=== PATIENT | male | born 1955 | race Caucasian/White ===

== ENCOUNTER 2018-08-29 05:03 | Inpatient (IN) ==
--- NOTE | 2018-08-29 05:16 | Emergency Department Note ---
Disposition Clinical Impression: Increased ammonia level Disposition: Admitted As Inpatient Condition: Fair Referrals: Trevor Horowitz MD [Primary Care Provider] - Forms: ED Satisfaction Letter SOB HPI - General Chief Complaint: ED Shortness of Breath/Dyspnea Stated Complaint: SOB/N/V Time Seen by Provider: 08/29/18 05:12 Source: patient, EMS Mode of arrival: private vehicle Limitations: no limitations Nursing Notes Reviewed: Yes Vital Signs Reviewed: Yes - History of Present Illness 63-year-old male with a past medical history of CHF, increased ammonia, that was recently admitted to this facility for shortness of breath. Patient states that he was started on lactulose and is now complaining of some abdominal pain, diarrhea. Patient states that he got up in the middle of night to go to the restroom and he felt very dizzy and weak, and was afraid that he might fall. He states that his has difficulty helping him and she was afraid that she might fall so he called the squad to be brought to the emergency department. Patient states that he uses CPAP at night with 2 L of oxygen, but is not normally on any oxygen. When asked about nausea and vomiting he states that he was dry heaving at home but denies any specific vomiting. He also relates that his has more information about the subject than he does. - Related Data Home Medications Medication Instructions Recorded Confirmed Amiodarone [Cordarone] 200 mg PO DAILY 08/11/18 08/29/18 Apixaban [Eliquis] 2.5 mg PO BID 08/11/18 08/29/18 Ascorbate Calcium [Vitamin C] 500 mg PO DAILY 08/11/18 08/29/18 Cholecalciferol (Vitamin D3) 3,000 unit PO DAILY 08/11/18 08/29/18 [Children's Vitamin D3] Cyanocobalamin (Vitamin B-12) 1,000 mcg PO DAILY 08/11/18 08/29/18 [Vitamin B12] Ferrous Sulfate [Iron] 325 mg PO BIDWM 08/11/18 08/29/18 Gabapentin [Neurontin] 300 mg PO TID 08/11/18 08/29/18 Glimepiride [Amaryl] 1 mg PO DAILY PRN 08/11/18 08/29/18 Isosorbide MONOnitrate (24 HR) 30 mg PO QPM 08/11/18 08/29/18 [Imdur] L.acidoph,Paracasei, B.lactis 1 cap PO BID 08/11/18 08/29/18 [Probiotic] Levothyroxine [Synthroid] 112 mcg PO 0630 08/11/18 08/29/18 Metoprolol Succinate [Toprol Xl] 25 mg PO DAILY 08/11/18 08/29/18 Mexiletine [Mexitil] 150 mg PO Q8HR 08/11/18 08/29/18 Multivitamin [Daily Multiple 1 each PO DAILY 08/11/18 08/29/18 Vitamin] Atorvastatin Calcium [Lipitor] 80 mg PO HS 08/18/18 08/29/18 Cetirizine HCl [24Hour Allergy] 10 mg PO DAILY 08/18/18 08/29/18 Lactulose 10 gm PO TID 08/29/18 08/29/18 Previous Rx's Medication Instructions Recorded Omeprazole [PriLOSEC] 40 mg PO DAILY #30 cap 08/14/18 Allopurinol [Zyloprim] 300 mg PO DAILY #0 08/23/18 Torsemide [Demadex] 80 mg PO BID #240 tablet 08/23/18 Allergies Allergy/AdvReac Type Severity Reaction Status Date / Time No Known Allergies Allergy Verified 08/18/18 13:41 Review of Systems: All systems ED: reviewed and negative except as stated. Constitutional: Denies: fever, chills ENT ED: Denies: ear pain, throat pain Cardiovascular: Denies: chest pain, palpitations Respiratory: Denies: cough, Reports: dyspnea Gastrointestinal: Denies: vomiting, constipation Reports: abdominal pain, nausea, diarrhea Genitourinary: Denies: urgency, dysuria, frequency Musculoskeletal: Denies: back pain, neck pain Integumentary: Denies: rash, abrasion Neurological: Denies: headache, numbness, paresthesias Reports: weakness, lightheadedness Psychiatric: Denies: anxiety, depression Endocrine: Denies: fatigue, heat or cold intolerance Hematological/Lymphatic: Denies: easy bleeding, easy bruising Allergic/Immunologic: Denies: facial swelling, urticaria Past Medical History - Past Medical History Attestation: Yes The following information was validated with the patient. Medical history: Reports: CHF, diabetes, hyperlipidemia, hypertension, thyroid disease Psychiatric history: Reports: no psych history - Social History Smoking Status: Former smoker Smokeless Tobacco Status: No Alcohol use: Reports: none Drug use: Reports: none Physical Exam General: A&O x 3. No acute distress. Well developed, well nourished. Obese m cindy. Head: atraumatic, normocephalic. ENT: No conjunctival injection, no scleral icterus. PERRLA. EOMI. Oropharynx non- erythematous. mucous membranes moist. Neuro: No focal deficits, no speech deficit, no facial droop, mentating well. BUE/BLE Str 5/5. Pulm: Rales in left lower lobe. Cardio: RRR no m/r/g. Chest not tender to palpation. Abd: Soft, non-distended. Normoactive bowel sounds. Non-tender to palpation. No guarding. Non rigid. Extremities: Radial pulses 2+ angela, Right leg more swollen than right, 2+ pitting edema on the right, 1+ pitting edema on the left. Skin: angela upper extremities diffusely covered in excoriations with scabs. Psych: Appropriate mood and affect. Answers questions appropriately. Cooperative with exam. - General Limitations: no limitations General appearance: alert, in no apparent distress Course Course Narrative: Ddx includes but is not limited to: Workup: CBC, BMP, troponin, lactic acid, blood cultures, ammonia, LFTs, CXR, EKG Vital Signs Temperature 98.4 F 08/29/18 05:09 Pulse Rate 71 08/29/18 05:09 Respiratory Rate 16 08/29/18 05:09 Blood Pressure 129/48 08/29/18 05:09 O2 Sat by Pulse Oximetry 96 08/29/18 05:09 Temperature 98.4 F 08/29/18 05:09 Pulse Rate 70 08/29/18 06:31 Respiratory Rate 16 08/29/18 06:31 Blood Pressure 132/55 08/29/18 06:31 O2 Sat by Pulse Oximetry 94 08/29/18 06:31 Oxygen Delivery Oxygen Delivery Room Air Shortness of Breath/Dyspnea - MDM Narrative Medical decision making narrative: Pts ammonia level was elevated at 181 after having his lactulose increased to 20mg TID since Thursday after his appt with Dr. Horowitz. Pt will be given a dose here in the department and admitted to the hospitalist. CXR showed stable right basilar atelectasis but also stated that this could be superinfection. Pt was normothermic, and he did not have an elevated WBC count, do not believe this is a superinfection. Patient was given an opportunity to ask questions at bedside and all of their concerns were addressed. Patient verbalized understanding and agreement with plan of care. Pt remained stable while in the department. Pt was signed out to [facility] doctors Lois and Danya, please see their notes for full disposition. - Medical Records Medical records reviewed: Yes I reviewed the patient's medical records. - Lab Data Lab results reviewed: Yes I reviewed the patient's lab results. Result diagrams: 08/29/18 05:53 08/29/18 05:53 Lab Results 08/29/18 08/29/18 08/29/18 Range/Units 05:53 05:53 05:53 WBC 5.6 (4.3-11.1) K/mcL RBC 3.25 L (4.19-5.50) M/mcL Hgb 9.4 L (12.9-16.9) g/dL Hct 29.7 L (37.5-50.1) % MCV 91.4 (83.0-100.0) fL MCH 28.9 (28.0-33.3) pg MCHC 31.6 (31.6-35.5) g/dL RDW 19.4 H (11.5-14.5) % Plt Count 145 (140-400) K/mcL MPV 11.2 (9.4-12.4) fL Immature Gran % 0.2 (0-4) % Seg Neutrophils % 74.4 % Lymphocytes % 14.0 % Monocytes % 9.8 % Eosinophils % 1.1 % Basophils % 0.5 % Neutrophils # 4.2 (1.6-8.9) K/mcL Lymphocytes # 0.8 (0.6-4.6) K/mcL Monocytes # 0.6 (0.0-1.3) K/mcL Eosinophils # 0.1 (0.0-0.6) K/mcL Basophils # 0.0 (0.0-0.2) K/mcL Sodium 135 L (136-145) mEq/L Potassium 3.2 L (3.5-5.1) mEq/L Chloride 92 L (98-107) mEq/L Carbon Dioxide 32 H (23-29) mEq/L BUN 82 H (8-23) mg/dL Creatinine 2.40 H (0.70-1.30) mg/dL Est GFR ( Amer) 33 L (> 60) Est GFR (Non-Af Amer) 28 L (> 60) BUN/Creatinine Ratio 34 H (6-26) Glucose 200 H (70-105) mg/dL Calculated Osmolality 310 H (280-300) Lactic Acid 1.4 (0.5-2.2) mmol/L Calcium 9.8 (8.6-10.3) mg/dL Total Bilirubin 1.7 H (0.3-1.0) mg/dL Direct Bilirubin 0.6 H (0.0-0.2) mg/dL Indirect Bilirubin 1.1 (0.0-1.2) mg/dL AST 54 H (13-39) Units/L ALT 39 (7-52) Units/L Alkaline Phosphatase 145 H (34-104) Units/L Ammonia (16-53) mcmol/L Troponin I 0.03 (< 0.04) ng/mL B-Natriuretic Peptide (Less than 100) pg/mL Serum Total Protein 6.6 (6.4-8.9) g/dL Albumin 3.5 (3.5-5.7) g/dL Globulin 3.1 (2.4-3.5) g/dL Albumin/Globulin Ratio 1.1 (1.1-2.2) 08/29/18 08/29/18 Range/Units 05:53 05:53 WBC (4.3-11.1) K/mcL RBC (4.19-5.50) M/mcL Hgb (12.9-16.9) g/dL Hct (37.5-50.1) % MCV (83.0-100.0) fL MCH (28.0-33.3) pg MCHC (31.6-35.5) g/dL RDW (11.5-14.5) % Plt Count (140-400) K/mcL MPV (9.4-12.4) fL Immature Gran % (0-4) % Seg Neutrophils % % Lymphocytes % % Monocytes % % Eosinophils % % Basophils % % Neutrophils # (1.6-8.9) K/mcL Lymphocytes # (0.6-4.6) K/mcL Monocytes # (0.0-1.3) K/mcL Eosinophils # (0.0-0.6) K/mcL Basophils # (0.0-0.2) K/mcL Sodium (136-145) mEq/L Potassium (3.5-5.1) mEq/L Chloride (98-107) mEq/L Carbon Dioxide (23-29) mEq/L BUN (8-23) mg/dL Creatinine (0.70-1.30) mg/dL Est GFR ( Amer) (> 60) Est GFR (Non-Af Amer) (> 60) BUN/Creatinine Ratio (6-26) Glucose (70-105) mg/dL Calculated Osmolality (280-300) Lactic Acid (0.5-2.2) mmol/L Calcium (8.6-10.3) mg/dL Total Bilirubin (0.3-1.0) mg/dL Direct Bilirubin (0.0-0.2) mg/dL Indirect Bilirubin (0.0-1.2) mg/dL AST (13-39) Units/L ALT (7-52) Units/L Alkaline Phosphatase (34-104) Units/L Ammonia 181 H (16-53) mcmol/L Troponin I (< 0.04) ng/mL B-Natriuretic Peptide 452 H (Less than 100) pg/mL Serum Total Protein (6.4-8.9) g/dL Albumin (3.5-5.7) g/dL Globulin (2.4-3.5) g/dL Albumin/Globulin Ratio (1.1-2.2) - Radiology Data Radiology results reviewed: Yes I reviewed the patient's radiology results. Chest X-Ray 08/29/18 05:12 IMPRESSION: Heart failure, with pulmonary edema, right pleural effusion and presumed basilar atelectasis-altogether not substantially changed since 08/18/2018. Superimposed infection could be present in the appropriate context. D/ / Yan Trejo / Yan Trejo Interpreting Provider: Yan Trejo - EKG Data EKG attestation: Yes I reviewed and interpreted this EKG. EKG results narrative: HR 70, rhythm ventricular paced, axis right. AK 89, QRS 219 and prolonged, QTc 564 and prolonged. No clinically significant ST elevation by Sgarbossa's criteria.
[2018-08-29 06:06] LABS: Basophils % 0.5 %; Eosinophils # 0.1 K/mcL (0.0-0.6); Eosinophils % 1.1 %; Hematocrit 29.7 % (37.5-50.1); Hemoglobin 9.4 g/dL (12.9-16.9); Immature Granulocytes % 0.2 % (0-4); Lymphocytes # 0.8 K/mcL (0.6-4.6); Mean Corpuscular HGB Conc 31.6 g/dL (31.6-35.5); Mean Corpuscular Hemoglobin 28.9 pg (28.0-33.3); Mean Corpuscular Volume 91.4 fL (83.0-100.0); Mean Platelet Volume 11.2 fL (9.4-12.4); Monocytes # 0.6 K/mcL (0.0-1.3); Monocytes % 9.8 %; Neutrophils # 4.2 K/mcL (1.6-8.9); Platelet Count 145 K/mcL (140-400); Red Blood Count 3.25 M/mcL (4.19-5.50); Red Cell Distribution Width 19.4 % (11.5-14.5); Segmented Neutrophils % 74.4 %
[2018-08-29 06:29] LABS: Albumin 3.5 g/dL (3.5-5.7); Albumin/Globulin Ratio 1.1 (1.1-2.2); Bilirubin,Direct 0.6 mg/dL (0.0-0.2); Bilirubin,Indirect 1.1 mg/dL (0.0-1.2); Bilirubin,Total 1.7 mg/dL (0.3-1.0); Calcium 9.8 mg/dL (8.6-10.3); Globulin 3.1 g/dL (2.4-3.5); Potassium 3.2 mEq/L (3.5-5.1); Total Protein 6.6 g/dL (6.4-8.9); Troponin I 0.03 ng/mL (< 0.04)
[2018-08-29] MEDS ORDERED: Lactulose Oral Soln 20 GM/30 ML UDC PO ONE (06:40)
--- NOTE | 2018-08-29 06:58 | Emergency Department Note ---
Disposition Clinical Impression: Increased ammonia level Disposition: Admitted As Inpatient Condition: Fair Forms: ED Satisfaction Letter General Adult HPI - General Chief complaint: ED Shortness of Breath/Dyspnea Stated complaint: SOB/N/V Time Seen by Provider: 08/29/18 05:12 Source: patient, EMS Mode of arrival: private vehicle Limitations: no limitations Nursing Notes Reviewed: Yes Vital Signs Reviewed: Yes - History of Present Illness Pain Scale: 5 - Related Data Home Medications Medication Instructions Recorded Confirmed Amiodarone [Cordarone] 200 mg PO DAILY 08/11/18 08/29/18 Apixaban [Eliquis] 2.5 mg PO BID 08/11/18 08/29/18 Ascorbate Calcium [Vitamin C] 500 mg PO DAILY 08/11/18 08/29/18 Cholecalciferol (Vitamin D3) 3,000 unit PO DAILY 08/11/18 08/29/18 [Children's Vitamin D3] Cyanocobalamin (Vitamin B-12) 1,000 mcg PO DAILY 08/11/18 08/29/18 [Vitamin B12] Ferrous Sulfate [Iron] 325 mg PO BIDWM 08/11/18 08/29/18 Gabapentin [Neurontin] 300 mg PO TID 08/11/18 08/29/18 Glimepiride [Amaryl] 1 mg PO DAILY PRN 08/11/18 08/29/18 Isosorbide MONOnitrate (24 HR) 30 mg PO QPM 08/11/18 08/29/18 [Imdur] L.acidoph,Paracasei, B.lactis 1 cap PO BID 08/11/18 08/29/18 [Probiotic] Levothyroxine [Synthroid] 112 mcg PO 0630 08/11/18 08/29/18 Metoprolol Succinate [Toprol Xl] 25 mg PO DAILY 08/11/18 08/29/18 Mexiletine [Mexitil] 150 mg PO Q8HR 08/11/18 08/29/18 Multivitamin [Daily Multiple 1 each PO DAILY 08/11/18 08/29/18 Vitamin] Atorvastatin Calcium [Lipitor] 80 mg PO HS 08/18/18 08/29/18 Cetirizine HCl [24Hour Allergy] 10 mg PO DAILY 08/18/18 08/29/18 Lactulose 10 gm PO TID 08/29/18 08/29/18 Previous Rx's Medication Instructions Recorded Omeprazole [PriLOSEC] 40 mg PO DAILY #30 cap 08/14/18 Allopurinol [Zyloprim] 300 mg PO DAILY #0 08/23/18 Torsemide [Demadex] 80 mg PO BID #240 tablet 08/23/18 Allergies Allergy/AdvReac Type Severity Reaction Status Date / Time No Known Allergies Allergy Verified 08/18/18 13:41 Past Medical History - Past Medical History Medical history: Reports: CHF, diabetes, hyperlipidemia, hypertension, thyroid disease Psychiatric history: Reports: no psych history - Social History Smoking Status: Former smoker Smokeless Tobacco Status: No Alcohol use: Reports: none Drug use: Reports: none Physical Exam - General Limitations: no limitations General appearance: alert, in no apparent distress Course Vital Signs Temperature 98.4 F 08/29/18 05:09 Pulse Rate 71 08/29/18 05:09 Respiratory Rate 16 08/29/18 05:09 Blood Pressure 129/48 08/29/18 05:09 O2 Sat by Pulse Oximetry 96 08/29/18 05:09 Temperature 98.4 F 08/29/18 05:09 Pulse Rate 70 08/29/18 06:31 Respiratory Rate 16 08/29/18 06:31 Blood Pressure 132/55 08/29/18 06:31 O2 Sat by Pulse Oximetry 94 08/29/18 06:31 Oxygen Delivery Oxygen Delivery Room Air Medical Decision Making - Medical Records Medical records reviewed: Yes I reviewed the patient's medical records. - Lab Data Lab results reviewed: Yes I reviewed the patient's lab results. Result diagrams: 08/29/18 05:53 08/29/18 05:53 Lab Results 08/29/18 08/29/18 08/29/18 Range/Units 05:53 05:53 05:53 WBC 5.6 (4.3-11.1) K/mcL RBC 3.25 L (4.19-5.50) M/mcL Hgb 9.4 L (12.9-16.9) g/dL Hct 29.7 L (37.5-50.1) % MCV 91.4 (83.0-100.0) fL MCH 28.9 (28.0-33.3) pg MCHC 31.6 (31.6-35.5) g/dL RDW 19.4 H (11.5-14.5) % Plt Count 145 (140-400) K/mcL MPV 11.2 (9.4-12.4) fL Immature Gran % 0.2 (0-4) % Seg Neutrophils % 74.4 % Lymphocytes % 14.0 % Monocytes % 9.8 % Eosinophils % 1.1 % Basophils % 0.5 % Neutrophils # 4.2 (1.6-8.9) K/mcL Lymphocytes # 0.8 (0.6-4.6) K/mcL Monocytes # 0.6 (0.0-1.3) K/mcL Eosinophils # 0.1 (0.0-0.6) K/mcL Basophils # 0.0 (0.0-0.2) K/mcL Sodium 135 L (136-145) mEq/L Potassium 3.2 L (3.5-5.1) mEq/L Chloride 92 L (98-107) mEq/L Carbon Dioxide 32 H (23-29) mEq/L BUN 82 H (8-23) mg/dL Creatinine 2.40 H (0.70-1.30) mg/dL Est GFR ( Amer) 33 L (> 60) Est GFR (Non-Af Amer) 28 L (> 60) BUN/Creatinine Ratio 34 H (6-26) Glucose 200 H (70-105) mg/dL Calculated Osmolality 310 H (280-300) Lactic Acid 1.4 (0.5-2.2) mmol/L Calcium 9.8 (8.6-10.3) mg/dL Total Bilirubin 1.7 H (0.3-1.0) mg/dL Direct Bilirubin 0.6 H (0.0-0.2) mg/dL Indirect Bilirubin 1.1 (0.0-1.2) mg/dL AST 54 H (13-39) Units/L ALT 39 (7-52) Units/L Alkaline Phosphatase 145 H (34-104) Units/L Ammonia (16-53) mcmol/L Troponin I 0.03 (< 0.04) ng/mL B-Natriuretic Peptide (Less than 100) pg/mL Serum Total Protein 6.6 (6.4-8.9) g/dL Albumin 3.5 (3.5-5.7) g/dL Globulin 3.1 (2.4-3.5) g/dL Albumin/Globulin Ratio 1.1 (1.1-2.2) 08/29/18 08/29/18 Range/Units 05:53 05:53 WBC (4.3-11.1) K/mcL RBC (4.19-5.50) M/mcL Hgb (12.9-16.9) g/dL Hct (37.5-50.1) % MCV (83.0-100.0) fL MCH (28.0-33.3) pg MCHC (31.6-35.5) g/dL RDW (11.5-14.5) % Plt Count (140-400) K/mcL MPV (9.4-12.4) fL Immature Gran % (0-4) % Seg Neutrophils % % Lymphocytes % % Monocytes % % Eosinophils % % Basophils % % Neutrophils # (1.6-8.9) K/mcL Lymphocytes # (0.6-4.6) K/mcL Monocytes # (0.0-1.3) K/mcL Eosinophils # (0.0-0.6) K/mcL Basophils # (0.0-0.2) K/mcL Sodium (136-145) mEq/L Potassium (3.5-5.1) mEq/L Chloride (98-107) mEq/L Carbon Dioxide (23-29) mEq/L BUN (8-23) mg/dL Creatinine (0.70-1.30) mg/dL Est GFR ( Amer) (> 60) Est GFR (Non-Af Amer) (> 60) BUN/Creatinine Ratio (6-26) Glucose (70-105) mg/dL Calculated Osmolality (280-300) Lactic Acid (0.5-2.2) mmol/L Calcium (8.6-10.3) mg/dL Total Bilirubin (0.3-1.0) mg/dL Direct Bilirubin (0.0-0.2) mg/dL Indirect Bilirubin (0.0-1.2) mg/dL AST (13-39) Units/L ALT (7-52) Units/L Alkaline Phosphatase (34-104) Units/L Ammonia 181 H (16-53) mcmol/L Troponin I (< 0.04) ng/mL B-Natriuretic Peptide 452 H (Less than 100) pg/mL Serum Total Protein (6.4-8.9) g/dL Albumin (3.5-5.7) g/dL Globulin (2.4-3.5) g/dL Albumin/Globulin Ratio (1.1-2.2) - Radiology Data Radiology results reviewed: Yes I reviewed the patient's radiology results. Chest X-Ray 08/29/18 05:12 IMPRESSION: Heart failure, with pulmonary edema, right pleural effusion and presumed basilar atelectasis-altogether not substantially changed since 08/18/2018. Superimposed infection could be present in the appropriate context. D/ / Yan Trejo / Yan Trejo Interpreting Provider: Yan Trejo - EKG Data EKG #1 EKG attestation: Yes I reviewed and interpreted this EKG. EKG results narrative: EKG shows an electronic ventricular pacemaker with a totally paced rhythm at a rate of 70. Attestation Statement - Attestation Attestation: I, Thierno Trevino MD, personally evaluated this patient and discussed their management with the resident physician. I reviewed the resident's note and agree with the documented findings, medical decision making, and plan of care. 65-year-old male presents to the emergency department with a complaint that he awoke during the night to the bathroom and he was so weak and shaky cannot make it to the bathroom. He called EMS. He has been taking lactulose for elevated ammonia level but states he has not been having a bowel movement. Some shortness of breath which is chronic. No chest pain. On examination patient is a well-developed obese male in no acute distress. He is alert and oriented 3. No cyanosis or diaphoresis. Breath sounds are equal bilaterally but decreased in the bases. Heart regular rate and rhythm. Abdomen soft and nontender with present bowel sounds. Labs reviewed. Chest x-ray unchanged from prior but shows chronic CHF. EKG s hows an electronic ventricular pacemaker. The hospitalist was consulted for admission.
[2018-08-29] MEDS ORDERED: Naloxone 0.4 MG/ML INJ IVP PRN (07:12)
--- NOTE | 2018-08-29 08:16 | Internal Med History&Physical ---
Date of Encounter: 08/29/18 Time of Encounter: 08:00 Internal Medicine - H&P: HPI Chief complaint: Weakness and shortness of breath History of present illness: Mr. Purcell is a 63 year old male with pmh of chronic systolic CHF, liver cirrhosis, hypertension, hypothyroidism presenting with complaints of weakness, lethargy and shortness of breath of 1 day duration. Patient says he was recently diagnosed with liver cirrhosis and started on lactulose about 2 weeks ago. He was also recently discharged from the hospital for acute hepatic encephalopathy and worsening CHF exacerbation. Since his discharge on August 23, he complains of weakness, fatigue , shortness of breath and a cough. His reports he has been having increased tremors, but also says he has been peeing a lot. He says in the last 24hrs he has been barely able to walk due to increasing weakness and increasing shortness of breath. Admits to fevers and chills and vomiting. Denies any other acute symptoms In the ER, his ammonia levels were noted to be elevated at 181 and he was given lactulose and he is being admitted for further management Past Med Surg Social Fam HX - Past Medical History Medical history: CHF, diabetes, hyperlipidemia, hypertension, thyroid disease Additional medical history: gout, type 2 DM Psychiatric history: no psych history - Past Surgical History Additional surgical history: CTR bilateral hands, Ventricular septal repair. - Social History Smoking Status: Former smoker Smokeless Tobacco Status: No Alcohol use: none Drug use: none - Family History Mother Hx Family Cardiac Disorders: Yes (mother/father heart attack) Hx Family Respiratory Disorders: No Hx Family Cancer: No Hx Family GI Disorders: No Hx Family Endocrine Disorder: Yes (DM sister/brother) Hx Family Neuromuscular Disorders: No Hx Family Neurologic Disorders: No Hx Family HEENT Disorders: No Hx Family Autoimmune Disorders: No Internal Medicine - H&P: Meds Amiodarone [Cordarone] 200 mg PO DAILY 08/11/18 [History] Apixaban [Eliquis] 2.5 mg PO BID 08/11/18 [History] Ascorbate Calcium [Vitamin C] 500 mg PO DAILY 08/11/18 [History] Cholecalciferol (Vitamin D3) [Children's Vitamin D3] 3,000 unit PO DAILY 08/11/18 [History] Cyanocobalamin (Vitamin B-12) [Vitamin B12] 1,000 mcg PO DAILY 08/11/18 [History] Ferrous Sulfate [Iron] 325 mg PO BIDWM 08/11/18 [History] Gabapentin [Neurontin] 300 mg PO TID 08/11/18 [History] Glimepiride [Amaryl] 1 mg PO DAILY PRN 08/11/18 [History] Isosorbide MONOnitrate (24 HR) [Imdur] 30 mg PO QPM 08/11/18 [History] L.acidoph,Paracasei, B.lactis [Probiotic] 1 cap PO BID 08/11/18 [History] Levothyroxine [Synthroid] 112 mcg PO 0630 08/11/18 [History] Metoprolol Succinate [Toprol Xl] 25 mg PO DAILY 08/11/18 [History] Mexiletine [Mexitil] 150 mg PO Q8HR 08/11/18 [History] Multivitamin [Daily Multiple Vitamin] 1 each PO DAILY 08/11/18 [History] Omeprazole [PriLOSEC] 40 mg PO DAILY #30 cap 08/14/18 [Rx] Atorvastatin Calcium [Lipitor] 80 mg PO HS 08/18/18 [History] Cetirizine HCl [24Hour Allergy] 10 mg PO DAILY 08/18/18 [History] Allopurinol [Zyloprim] 300 mg PO DAILY #0 08/23/18 [Rx] Torsemide [Demadex] 80 mg PO BID #240 tablet 08/23/18 [Rx] Lactulose 10 gm PO TID 08/29/18 [History] Allergy/AdvReac Type Severity Reaction Status Date / Time No Known Allergies Allergy Verified 08/18/18 13:41 All Systems PM: A 10-system review of systems was performed and is negative for pertinent findings except as documented above in the HPI. - Constitutional Constitutional: lethargy, malaise, weakness, no chills, no fever(s), no night sweats - EENT Eyes: no change in vision, no discharge, no pain, no photophobia Ears: no ear discharge, no ear pain, no tinnitus Nose, mouth and throat: no dysphagia, no nasal discharge, no neck pain, no sore throat - Cardiovascular Cardiovascular ROS IM: no chest pain, no diaphoresis, no dyspnea, no lightheadedness, no palpitations, no syncope - Respiratory Respiratory: cough, dyspnea, no wheezing, no excessive phlegm production - Gastrointestinal Gastrointestinal: no abdominal pain, no diarrhea, no hematemesis, no hematochezia, no melena, no nausea, no vomiting - Musculoskeletal Musculoskeletal ROS IM: no numbness, no tingling - Integumentary Integumentary IM: no rash, no unusual bruising - Neurological Neurological ROS: no confusion, no convulsions, no focal weakness, no numbness, no tingling, no tremor(s) - Hematologic/Lymphatic Hematologic/Lymphatic: no easy bruising - Constitutional Vitals: Temp Pulse Resp BP Pulse Ox 98.4 F 74 16 131/82 95 08/29/18 05:09 08/29/18 08:04 08/29/18 08:04 08/29/18 08:04 08/29/18 08:04 Exam: Morbidly obese Extremely lethargic Has tremors with arms outstretched - Head Head exam: Present: atraumatic, normocephalic - Eye Eye exam: Present: PERRL, conjuntiva pink, sclera anicteric Pupils: Present: PERRL - Neck Neck exam general surgery: Present: supple, trachea midline. Absent: lymphadenopathy - Respiratory Respiratory exam: Present: CTAB. Absent: accessory muscle use, rales, rhonchi, wheezes - Cardiovascular Cardiovascular exam: Present: RRR, +S1, +S2. Absent: diastolic murmur, gallop, rubs, systolic murmur - GI/Abdominal GI/Abdominal exam: Present: normal bowel sounds, soft, no peritoneal signs. Absent: distended, tenderness - Extremities Exam Extremities exam: Present: pedal edema, warm, radial pulses palpable and symmetrical. Absent: calf tenderness, cyanotic - Neurological Exam Neurological exam: Present: CN II-XII intact, oriented X3, no focal deficits. Absent: pronater drift, facial droop, speech deficit - Skin Skin exam: Present: dry, intact Internal Med - H&P Results - Labs CBC & Chem 7: 08/29/18 05:53 08/29/18 05:53 Labs: Short CBC 08/29/18 Range/Units 05:53 WBC 5.6 (4.3-11.1) K/mcL Hgb 9.4 L (12.9-16.9) g/dL Hct 29.7 L (37.5-50.1) % Plt Count 145 (140-400) K/mcL Neutrophils # 4.2 (1.6-8.9) K/mcL BMP 08/29/18 05:53 Sodium 135 L Potassium 3.2 L Chloride 92 L Carbon Dioxide 32 H BUN 82 H Creatinine 2.40 H Glucose 200 H Calcium 9.8 Cardiac Enzymes 08/29/18 Range/Units 05:53 Troponin I 0.03 (< 0.04) ng/mL Liver Function 08/29/18 Range/Units 05:53 Total Bilirubin 1.7 H (0.3-1.0) mg/dL Direct Bilirubin 0.6 H (0.0-0.2) mg/dL AST 54 H (13-39) Units/L ALT 39 (7-52) Units/L Alkaline Phosphatase 145 H (34-104) Units/L Albumin 3.5 (3.5-5.7) g/dL - Impressions ITS Impressions Chest X-Ray 08/29/18 05:12 IMPRESSION: Heart failure, with pulmonary edema, right pleural effusion and presumed basilar atelectasis-altogether not substantially changed since 08/18/2018. Superimposed infection could be present in the appropriate context. D/ / Yan Trejo / Yan Trejo Interpreting Provider: Yan Trejo - Assessment and Plan (1) Acute hepatic encephalopathy Current Visit: Yes Status: Acute Assessment and plan: Pt comes in with lethargy, intermittent confusion and tremors. Ammonia levels elevated at 181 Likely secondary to acute hepatic encephalopathy. Will start on lactulose and rifaximin. Obtain cultures Also complains of worsening cough and intermittent chills. Will cover empirically for bacterial HCAP with zosyn CXR shows pulmonary edema with possible superimposed infection Obtain abdominal ultrasound to assess for ascites (2) Hepatorenal syndrome Current Visit: Yes Status: Acute Assessment and plan: Pt has worsening creatinine in the setting of liver cirrhosis says he has been making a lot of urine at home. And is not as volume overloaded as he was on the last admission Will continue diuresis as he still has pulmonary and pedal edema. Continue lasix and spironolactone. Also hypokalemic Was hypotensive in the 90s. Will add albumin and midodrine to regimen due to worsening kidney function and hypotension. renal consulted and recs appreciated (3) Acute on chronic systolic CHF (congestive heart failure), NYHA class 3 Current Visit: Yes Status: Acute Assessment and plan: Has pulmonary edema and 2+ pitting edema On lasix and spironolactone. Albumin added to regimen due to hypotension and worsening kidney function (4) Acute kidney injury superimposed on CKD Current Visit: Yes Status: Acute Assessment and plan: See plan for hepatorenal syndrome On diuresis and albumin. renal consulted (5) Hypothyroidism Current Visit: Yes Status: Acute Assessment and plan: Continue levothyroxine Qualifiers: Qualified Code(s): E03.9 - Hypothyroidism, unspecified (6) Pneumonia Current Visit: Yes Status: Acute Assessment and plan: Recently discharged from the hospital adnd has cough worsening SOB and chills Cover empirically with zosyn. Obtain cultures Qualifiers: Qualified Code(s): J18.9 - Pneumonia, unspecified organism (7) Atrial fibrillation Current Visit: Yes Status: Acute Assessment and plan: Continue amiodarone and apixaban Qualifiers: Qualified Code(s): I48.91 - Unspecified atrial fibrillation (8) DVT prophylaxis Current Visit: Yes Status: Acute Assessment and plan: On apixaban - Time Spent With Patient Total time spent is greater than 50% in coordination of care (as documented) at patient's floor/unit and/or counseling patient:
[2018-08-29] MEDS ORDERED: Dextrose Gel 15 GM/37.5 ML TUBE PO PRN ×2 (08:17)
[2018-08-29] MEDS ORDERED: D5% in Water 1,000 ML IVC PRN (08:17)
[2018-08-29] MEDS ORDERED: *HR* Dextrose 50 % in Water (Syg) 50 ML SYRINGE IVP PRN (08:17)
[2018-08-29] MEDS: Lactulose Oral Soln 20 GM/30 ML UDC PO SCH ×3 (10:49→20:32)
[2018-08-29] MEDS: Piperacillin/Tazobactam 3.375 GM in 0.9 % Sodium Chloride Mini Bag 100 ML IVPB SCH ×3 (10:49→15:19)
[2018-08-29] MEDS: Cholecalciferol (D-3) 1,000 UNIT TABLET PO SCH (10:50)
[2018-08-29] MEDS: Cyanocobalamin (B-12) 1,000 MCG TABLET PO SCH (10:51)
[2018-08-29] MEDS: *HR* Amiodarone 200 MG TABLET PO SCH (10:51)
[2018-08-29] MEDS: Ascorbic Acid 500 MG TABLET PO SCH (10:51)
[2018-08-29] MEDS: Loratadine 10 MG TABLET PO SCH (10:51)
[2018-08-29] MEDS: Metoprolol XL (24 HR) Succ 25 MG TAB.ER.24H PO SCH (10:51)
[2018-08-29] MEDS: Apixaban 2.5 MG TABLET PO SCH ×2 (10:51→20:32)
[2018-08-29] MEDS: Multivit/Ca/Min/Fe/FA 1 TAB TABLET PO SCH (10:52)
[2018-08-29] MEDS: Furosemide 40 MG/4 ML VIAL IVP SCH ×2 (10:53→17:25)
[2018-08-29] MEDS: Albumin 25% 25gram/100mL 25 GM/100 ML IV.SOLN IVC SCH ×2 (11:11→12:53)
[2018-08-29] MEDS: Potassium Chloride Elixir 20 MEQ/15 ML UDC PO SCH ×2 (11:12→16:26)
--- NOTE | 2018-08-29 11:15 | Nephrology Consult Note ---
Date of Encounter: 08/29/18 Time of Encounter: 11:15 Assessment and Plan (1) Acute kidney injury superimposed on CKD Current Visit: Yes Status: Acute Patient with acute kidney injury on chronic kidney disease per his previous admission. Renal function has not worsened. There is suspected hepatorenal syndrome. Based on his presentation I recommend intravenous fluids. No need for dialysis at this time. Avoid unnecessary nephrotoxins. Adjust medication as needed for kidney function. Thank you for the consult will follow with you. (2) Acute on chronic systolic CHF (congestive heart failure), NYHA class 3 Current Visit: Yes Status: Acute (3) Hepatorenal syndrome Current Visit: Yes Status: Acute Maintain volume positive status (4) Anemia Current Visit: No Status: Acute Monitor and transfuse as needed. Qualifiers: Anemia type: unspecified type Qualified Code(s): D64.9 - Anemia, unspecified (5) CHF (congestive heart failure) Current Visit: No Status: Acute Qualifiers: Heart failure type: unspecified Heart failure chronicity: unspecified Qualified Code(s): I50.9 - Heart failure, unspecified (6) Cirrhosis Current Visit: No Status: Acute Per the primary team. Qualifiers: Hepatic cirrhosis type: unspecified hepatic cirrhosis Ascites presence: without ascites Qualified Code(s): K74.60 - Unspecified cirrhosis of liver (7) Normocytic anemia Current Visit: No Status: Chronic History of Present Illness - Reason for Consult Consult date: 08/29/18 Acute Kidney Injury, Chronic Kidney Disease - Chief Complaint mechelle/ckd - History of Present Illness Mr. Purcell is a 63 yo man with a history of suspected HRS and cirrhosis who was recently discharged from the hospital returns secondary to nausea, vomiting and poor appetite. His family was in the room at the time of my evaluation. Patient complained of nausea, vomiting and only one episode of loose stool. He denies chest pain or dyspnea. [facility] was consulted for assistance with renal dysfunction. Past Med Surg Social Fam HX - Past Medical History Medical history: CHF, diabetes, hyperlipidemia, hypertension, thyroid disease Additional medical history: gout, type 2 DM Psychiatric history: no psych history - Past Surgical History Additional surgical history: CTR bilateral hands, Ventricular septal repair. - Social History Smoking Status: Former smoker Smokeless Tobacco Status: No Alcohol use: none Drug use: none - Family History Mother Hx Family Cardiac Disorders: Yes (mother/father heart attack) Hx Family Respiratory Disorders: No Hx Family Cancer: No Hx Family GI Disorders: No Hx Family Endocrine Disorder: Yes (DM sister/brother) Hx Family Neuromuscular Disorders: No Hx Family Neurologic Disorders: No Hx Family HEENT Disorders: No Hx Family Autoimmune Disorders: No Medications and Allergies Amiodarone [Cordarone] 200 mg PO DAILY 08/11/18 [History] Apixaban [Eliquis] 2.5 mg PO BID 08/11/18 [History] Ascorbate Calcium [Vitamin C] 500 mg PO DAILY 08/11/18 [History] Cholecalciferol (Vitamin D3) [Children's Vitamin D3] 3,000 unit PO DAILY 08/11/18 [History] Cyanocobalamin (Vitamin B-12) [Vitamin B12] 1,000 mcg PO DAILY 08/11/18 [History] Ferrous Sulfate [Iron] 325 mg PO BIDWM 08/11/18 [History] Gabapentin [Neurontin] 300 mg PO TID 08/11/18 [History] Glimepiride [Amaryl] 1 mg PO DAILY PRN 08/11/18 [History] Isosorbide MONOnitrate (24 HR) [Imdur] 30 mg PO QPM 08/11/18 [History] L.acidoph,Paracasei, B.lactis [Probiotic] 1 cap PO BID 08/11/18 [History] Levothyroxine [Synthroid] 112 mcg PO 0630 08/11/18 [History] Metoprolol Succinate [Toprol Xl] 25 mg PO DAILY 08/11/18 [History] Mexiletine [Mexitil] 150 mg PO Q8HR 08/11/18 [History] Multivitamin [Daily Multiple Vitamin] 1 each PO DAILY 08/11/18 [History] Omeprazole [PriLOSEC] 40 mg PO DAILY #30 cap 08/14/18 [Rx] Atorvastatin Calcium [Lipitor] 80 mg PO HS 08/18/18 [History] Cetirizine HCl [24Hour Allergy] 10 mg PO DAILY 08/18/18 [History] Allopurinol [Zyloprim] 300 mg PO DAILY #0 08/23/18 [Rx] Torsemide [Demadex] 80 mg PO BID #240 tablet 08/23/18 [Rx] Lactulose 10 gm PO TID 08/29/18 [History] Allergy/AdvReac Type Severity Reaction Status Date / Time No Known Allergies Allergy Verified 08/18/18 13:41 Review of Systems All Systems: reviewed and no additional remarkable complaints except as stated (as documented in the hpi) Exam - Vital Signs Vital signs: Initial Vital Signs Temp Pulse Resp BP Pulse Ox 98.4 F 71 16 129/48 96 08/29/18 05:09 08/29/18 05:09 08/29/18 05:09 08/29/18 05:09 08/29/18 05:09 Vital Signs - Last 8 Hours Temp Pulse Resp BP Pulse Ox 08/29/18 10:31 70 16 148/82 93 08/29/18 09:06 70 19 136/64 97 08/29/18 08:04 74 16 131/82 95 08/29/18 07:02 71 16 97/59 96 08/29/18 06:31 70 16 132/55 94 08/29/18 05:18 96 08/29/18 05:09 98.4 F 71 16 129/48 96 Intake and Output 08/28/18 08/29/18 08/29/18 23:59 07:59 15:59 Other: Weight 123.74 kg Patient Weight 08/29/18 23:59 Weight 123.74 kg - General Appearance General appearance: well-developed, well-nourished, obese EENT: ATNC Neck: supple Respiratory: course breath sounds Cardiology: edema, regular rate Gastrointestinal: no tenderness, obese Integumentary: warm and dry Neurologic: alert and oriented x3 Musculoskeletal: no cyanosis Psychiatric: mood/affect appropriate Results - Lab Results 08/29/18 05:53 08/29/18 05:53 Most recent lab results 08/29/18 05:53 Calcium 9.8 Consult Discharge Plan - Plan Referrals: Trevor Horowitz MD [Primary Care Provider] -
[2018-08-29] MEDS: GuaiFENesin Liq 200 MG/10 ML UDC PO SCH ×2 (13:40→17:25)
[2018-08-29] MEDS: Insulin LISPRO 300 UNITS/3 ML VIAL SQ SCH ×2 (13:40→17:31)
[2018-08-29] MEDS: Isosorbide MONOnitrate (24 HR) 30 MG TAB.ER.24H PO SCH (17:25)
[2018-08-29] MEDS ORDERED: 0.9 % Sodium Chloride 1,000 ML IVC SCH (23:45)
[2018-08-30] MEDS: GuaiFENesin Liq 200 MG/10 ML UDC PO SCH ×4 (02:27→18:39)
[2018-08-30] MEDS: Piperacillin/Tazobactam 3.375 GM in 0.9 % Sodium Chloride Mini Bag 100 ML IVPB SCH ×3 (02:29→14:53)
[2018-08-30 05:12] LABS: Basophils % 0.8 %; Eosinophils # 0.1 K/mcL (0.0-0.6); Eosinophils % 1.9 %; Hematocrit 28.7 % (37.5-50.1); Hemoglobin 8.9 g/dL (12.9-16.9); Immature Granulocytes % 0.2 % (0-4); Lymphocytes # 0.8 K/mcL (0.6-4.6); Lymphocytes % 16.1 %; Mean Corpuscular Hemoglobin 28.3 pg (28.0-33.3); Mean Corpuscular Volume 91.1 fL (83.0-100.0); Mean Platelet Volume 11.8 fL (9.4-12.4); Monocytes # 0.5 K/mcL (0.0-1.3); Monocytes % 9.7 %; Neutrophils # 3.7 K/mcL (1.6-8.9); Platelet Count 133 K/mcL (140-400); Red Blood Count 3.15 M/mcL (4.19-5.50); Red Cell Distribution Width 19.6 % (11.5-14.5); Segmented Neutrophils % 71.3 %
[2018-08-30 05:32] LABS: Calcium 9.6 mg/dL (8.6-10.3); Magnesium 2.2 mg/dL (1.6-2.6); Phosphorous 2.7 mg/dL (2.7-4.5); Potassium 3.1 mEq/L (3.5-5.1)
[2018-08-30] MEDS: Cholecalciferol (D-3) 1,000 UNIT TABLET PO SCH (08:10)
[2018-08-30] MEDS: Loratadine 10 MG TABLET PO SCH (08:10)
[2018-08-30] MEDS: Ascorbic Acid 500 MG TABLET PO SCH (08:10)
[2018-08-30] MEDS: *HR* Amiodarone 200 MG TABLET PO SCH (08:10)
[2018-08-30] MEDS: Cyanocobalamin (B-12) 1,000 MCG TABLET PO SCH (08:10)
[2018-08-30] MEDS: Multivit/Ca/Min/Fe/FA 1 TAB TABLET PO SCH (08:11)
[2018-08-30] MEDS: Furosemide 40 MG/4 ML VIAL IVP SCH ×2 (08:11→18:30)
[2018-08-30] MEDS: Apixaban 2.5 MG TABLET PO SCH ×2 (08:11→21:12)
[2018-08-30] MEDS: Metoprolol XL (24 HR) Succ 25 MG TAB.ER.24H PO SCH (08:11)
[2018-08-30] MEDS: Lactulose Oral Soln 20 GM/30 ML UDC PO SCH ×3 (08:12→21:12)
[2018-08-30] MEDS: Insulin LISPRO 300 UNITS/3 ML VIAL SQ SCH ×3 (08:23→18:30)
--- NOTE | 2018-08-30 11:14 | Nephrology Progress Note ---
Date of Encounter: 08/30/18 Time of Encounter: 11:14 - Assessment and Plan (1) Acute kidney injury superimposed on CKD Current Visit: Yes Status: Acute (2) Acute on chronic systolic CHF (congestive heart failure), NYHA class 3 Current Visit: Yes Status: Acute (3) Hepatorenal syndrome Current Visit: Yes Status: Acute (4) Anemia Current Visit: No Status: Acute Qualifiers: Anemia type: unspecified type Qualified Code(s): D64.9 - Anemia, unspecified (5) CHF (congestive heart failure) Current Visit: No Status: Acute Qualifiers: Heart failure type: unspecified Heart failure chronicity: unspecified Qualified Code(s): I50.9 - Heart failure, unspecified (6) Cirrhosis Current Visit: No Status: Acute Qualifiers: Hepatic cirrhosis type: unspecified hepatic cirrhosis Ascites presence: without ascites Qualified Code(s): K74.60 - Unspecified cirrhosis of liver (7) Normocytic anemia Current Visit: No Status: Chronic Objective - Vital Signs Vital signs: Vital Signs Temp Pulse Resp BP Pulse Ox 08/30/18 08:10 93 08/30/18 05:46 97.4 F L 72 18 130/71 93 08/30/18 00:32 97.4 F L 70 16 126/68 91 08/29/18 19:44 97.5 F L 70 16 94/45 94 08/29/18 15:35 98.1 F 73 16 127/68 98 Intake and Output 08/29/18 08/30/18 08/30/18 23:59 07:59 15:59 Intake Total 100 / 540 100 / 340 240 / 340 Output Total 0 / 1000 Balance 100 / -460 100 / 340 240 / 340 Intake: IV Fluids 100 / 300 100 / 100 Zosyn 3.375 GM In 0.9 % Sodium 100 / 100 100 / 100 Chloride (Mini-Bag +) 100 ML @ 25 mls/hr IVPB Q8HR [facility] Rx#: [id number] Oral 0 / 240 0 / 240 240 / 240 Output: Urine 0 / 1000 Other: Meal Breakfast Percent of Meal Consumed 90% # Voids 1 # Bowel Movements 1 Blood Glucose* 168 161 - Lab 08/30/18 04:25 08/30/18 04:25 Most recent lab results 08/30/18 04:25 Calcium 9.6 Phosphorus 2.7 Magnesium 2.2 Consult Discharge Plan - Plan Referrals: Trevor Horowitz MD [Primary Care Provider] -
--- NOTE | 2018-08-30 13:30 | Internal Med Progress Note ---
Hospitalist Progress Note - Encounter Date of Encounter: 08/30/18 Time of Encounter: 09:00 - Subjective Interval History: Patient feels better. Less shortness of breath. More awake alert. Mild cough with yellowish sputum. Has good bowel movement on lactulose. Vitals are stable. No fever - Exam Vitals: Temp Pulse Resp BP Pulse Ox 97.3 F L 71 18 110/52 97 08/30/18 11:35 08/30/18 11:35 08/30/18 11:35 08/30/18 11:35 08/30/18 11:35 Exam: Pt is AAO x 3, in NAD HEENT: NC/AT, PERRL Neck: Supple, no JVD, no LAD Lungs: CTA b/l Heart: S1S2, RRR Abd: Soft, nontender, BS present Ext: ROM wnl, mild bilateral pedal edema Neuro: No focal deficit - Assessment and Plan (1) Acute on chronic systolic CHF (congestive heart failure), NYHA class 3 Current Visit: Yes Status: Acute Assessment and Plan: Has pulmonary edema and 2+ pitting edema On lasix and spironolactone. Albumin added to regimen due to hypotension and worsening kidney function. Strict I and O. Fluid restriction diet. Patient has LVEF 35% per recent echo, has AICD implanted. (2) Acute kidney injury superimposed on CKD Current Visit: Yes Status: Acute Assessment and Plan: See plan for hepatorenal syndrome On diuresis and albumin. Nephrology consult appreciated. Continue closely monitor renal function (3) Acute hepatic encephalopathy Current Visit: Yes Status: Acute Assessment and Plan: Patient is more awake alert. Had good bowel movements bowel movement on lactulose. Continue lactulose and rifaximin (4) Hepatorenal syndrome Current Visit: Yes Status: Acute Assessment and Plan: Suspect hepatorenal syndrome as patient has worsening creatinine level. Patient was treated with albumin and midodrine. - Nephrology consult appreciated - Patient has stable vital signs at this point. Continue maintain adequate circulation volume. (5) Hypothyroidism Current Visit: Yes Status: Acute Assessment and Plan: Continue levothyroxine (6) Pneumonia Current Visit: Yes Status: Acute Assessment and Plan: Recently discharged from the hospital adnd has cough worsening SOB and chills Cover empirically with zosyn. Obtain cultures. (7) Atrial fibrillation Current Visit: Yes Status: Acute Assessment and Plan: Continue amiodarone and apixaban (8) DVT prophylaxis Current Visit: Yes Status: Acute Assessment and Plan: On apixaban - Time Spent with Patient Total time spent is greater than 50% in coordination of care (as documented) at patient's floor/unit and/or counseling patient: 30 minutes 25 - 35 minutes Plan of Care Discussed with: patient Internal Medicine: Result - Labs CBC & Chem 7: 08/30/18 04:25 08/30/18 04:25 Labs: Short CBC 08/30/18 Range/Units 04:25 WBC 5.2 (4.3-11.1) K/mcL Hgb 8.9 L (12.9-16.9) g/dL Hct 28.7 L (37.5-50.1) % Plt Count 133 L (140-400) K/mcL Neutrophils # 3.7 (1.6-8.9) K/mcL BMP 08/30/18 04:25 Sodium 136 Potassium 3.1 L Chloride 95 L Carbon Dioxide 30 H BUN 79 H Creatinine 2.15 H Glucose 179 H Calcium 9.6 - Impressions Impressions Abdomen Ultrasound 08/30/18 11:00 IMPRESSION: 1. No ascites seen on ultrasound. 2. Small right pleural effusion. D/ / Imtiaz Mnotiel MD / Imtiaz Montiel MD Interpreting Provider: Imtiaz Montiel MD Consult Discharge Plan - Plan Referrals: Trevor Horowitz MD [Primary Care Provider] - (5) Hypothyroidism Qualifiers: Qualified Code(s): E03.9 - Hypothyroidism, unspecified (6) Pneumonia Qualifiers: Pneumonia type: due to unspecified organism Laterality: bilateral (7) Atrial fibrillation Qualifiers: Qualified Code(s): I48.91 - Unspecified atrial fibrillation
[2018-08-30] MEDS: Isosorbide MONOnitrate (24 HR) 30 MG TAB.ER.24H PO SCH (18:29)
[2018-08-31] MEDS: Piperacillin/Tazobactam 3.375 GM in 0.9 % Sodium Chloride Mini Bag 100 ML IVPB SCH ×3 (00:32→17:48)
[2018-08-31] MEDS: GuaiFENesin Liq 200 MG/10 ML UDC PO SCH ×4 (00:32→17:47)
[2018-08-31 05:49] LABS: Basophils # 0.1 K/mcL (0.0-0.2); Basophils % 0.8 %; Eosinophils # 0.2 K/mcL (0.0-0.6); Eosinophils % 2.9 %; Hematocrit 31.3 % (37.5-50.1); Hemoglobin 9.5 g/dL (12.9-16.9); Immature Granulocytes % 0.3 % (0-4); Lymphocytes # 1.5 K/mcL (0.6-4.6); Lymphocytes % 20.5 %; Mean Corpuscular HGB Conc 30.4 g/dL (31.6-35.5); Mean Corpuscular Hemoglobin 28.3 pg (28.0-33.3); Mean Corpuscular Volume 93.2 fL (83.0-100.0); Mean Platelet Volume 11.2 fL (9.4-12.4); Monocytes # 0.7 K/mcL (0.0-1.3); Monocytes % 10.1 %; Neutrophils # 4.8 K/mcL (1.6-8.9); Platelet Count 142 K/mcL (140-400); Red Blood Count 3.36 M/mcL (4.19-5.50); Red Cell Distribution Width 19.9 % (11.5-14.5); Segmented Neutrophils % 65.4 %
[2018-08-31 06:16] LABS: Albumin 3.6 g/dL (3.5-5.7); Albumin/Globulin Ratio 1.2 (1.1-2.2); Bilirubin,Total 2.8 mg/dL (0.3-1.0); Calcium 9.8 mg/dL (8.6-10.3); Globulin 2.9 g/dL (2.4-3.5); Potassium 4.1 mEq/L (3.5-5.1); Total Protein 6.5 g/dL (6.4-8.9)
[2018-08-31] MEDS: Insulin LISPRO 300 UNITS/3 ML VIAL SQ SCH ×3 (09:12→17:48)
[2018-08-31] MEDS: Ascorbic Acid 500 MG TABLET PO SCH (09:14)
[2018-08-31] MEDS: Cyanocobalamin (B-12) 1,000 MCG TABLET PO SCH (09:14)
[2018-08-31] MEDS: Lactulose Oral Soln 20 GM/30 ML UDC PO SCH ×3 (09:14→20:17)
[2018-08-31] MEDS: Apixaban 2.5 MG TABLET PO SCH ×2 (09:14→20:17)
[2018-08-31] MEDS: Metoprolol XL (24 HR) Succ 25 MG TAB.ER.24H PO SCH (09:14)
[2018-08-31] MEDS: Multivit/Ca/Min/Fe/FA 1 TAB TABLET PO SCH (09:14)
[2018-08-31] MEDS: Cholecalciferol (D-3) 1,000 UNIT TABLET PO SCH (09:14)
[2018-08-31] MEDS: *HR* Amiodarone 200 MG TABLET PO SCH (09:15)
[2018-08-31] MEDS: Loratadine 10 MG TABLET PO SCH (09:15)
[2018-08-31] MEDS: Furosemide 40 MG/4 ML VIAL IVP SCH ×2 (09:15→17:47)
[2018-08-31] MEDS ORDERED: Hydrocortisone Rectal 2.5% CRM 28 GM TUBE RC PRN (12:35)
--- NOTE | 2018-08-31 12:37 | Nephrology Progress Note ---
Date of Encounter: 09/01/18 Time of Encounter: 12:35 - Assessment and Plan (1) Acute kidney injury superimposed on CKD Current Visit: Yes Status: Acute Patient with acute kidney injury on chronic kidney disease per his previous admission vs new baseline renal function. Renal function has not worsened. There is suspected hepatorenal syndrome. Based on his presentation I recommend furosemide No need for dialysis at this time. Avoid unnecessary nephrotoxins. Adjust medication as needed for kidney function. Patient would like PT to assess as he feels unstable at home. (2) Acute on chronic systolic CHF (congestive heart failure), NYHA class 3 Current Visit: Yes Status: Acute (3) Hepatorenal syndrome Current Visit: Yes Status: Suspected (4) Anemia Current Visit: No Status: Acute Qualifiers: Anemia type: unspecified type Qualified Code(s): D64.9 - Anemia, unspecified (5) CHF (congestive heart failure) Current Visit: No Status: Acute Qualifiers: Heart failure type: unspecified Heart failure chronicity: unspecified Qualified Code(s): I50.9 - Heart failure, unspecified (6) Cirrhosis Current Visit: No Status: Acute Qualifiers: Hepatic cirrhosis type: unspecified hepatic cirrhosis Ascites presence: without ascites Qualified Code(s): K74.60 - Unspecified cirrhosis of liver (7) Normocytic anemia Current Visit: No Status: Chronic Subjective Principal diagnosis: CRISTY on CKD Interval history: Patient seen and evaluated. He has no new complaint. His is at his bedside. His review of systems is overall stable. Objective - Vital Signs Vital signs: Vital Signs Temp Pulse Resp BP Pulse Ox 08/31/18 11:14 97.6 F 72 16 107/42 93 08/31/18 08:47 93 08/31/18 07:32 98.1 F 72 16 123/60 93 08/31/18 05:38 97.9 F 72 16 113/66 97 08/31/18 00:09 97.9 F 71 16 104/64 96 08/30/18 20:31 97.9 F 74 16 137/79 97 08/30/18 14:39 97.8 F 70 17 140/76 97 Intake and Output 08/30/18 08/31/18 08/31/18 23:59 07:59 15:59 Intake Total 100 / 1020 720 / 840 120 / 840 Output Total 350 / 350 600 / 600 0 / 600 Balance -250 / 670 120 / 240 120 / 240 Intake: IV Fluids 100 / 300 100 / 100 Zosyn 3.375 GM In 0.9 % Sodium 100 / 300 100 / 100 Chloride (Mini-Bag +) 100 ML @ 25 mls/hr IVPB Q8HR [facility] Rx#: [id number] Oral 0 / 720 620 / 740 120 / 740 Output: Urine 350 / 350 600 / 600 0 / 600 Other: Stool Size Small Small Stool Consistency liquid liquid Stool Color Brown # Voids 1 # Bowel Movements 1 1 Weight 121.5 kg Blood Glucose* 211 168 247 Patient Weight 08/31/18 23:59 Weight 121.5 kg - General Appearance General appearance: Present: well-developed, well-nourished, obese EENT: Present: ATNC Neck: Present: supple Cardiology: Present: regular rate Gastrointestinal: Present: obese Integumentary: Present: warm and dry Neurologic: Present: alert and oriented x3 Musculoskeletal: Present: no cyanosis Psychiatric: Present: mood/affect appropriate - Lab 09/01/18 08:27 09/01/18 08:27 Most recent lab results 08/31/18 05:34 Calcium 9.8 Consult Discharge Plan - Plan Referrals: Trevor Horowitz MD [Primary Care Provider] -
--- NOTE | 2018-08-31 17:16 | Internal Med Progress Note ---
Hospitalist Progress Note - Encounter Date of Encounter: 08/31/18 Time of Encounter: 09:00 - Subjective Interval History: Patient still has cough. With greyish sputum. No fever. No shots of breath. Leg swelling has improved. - Exam Vitals: Temp Pulse Resp BP Pulse Ox 97.4 F L 72 16 127/75 98 08/31/18 14:49 08/31/18 14:49 08/31/18 14:49 08/31/18 14:49 08/31/18 14:49 Exam: Pt is AAO x 3, in NAD HEENT: NC/AT, PERRL Neck: Supple, no JVD, no LAD Lungs: CTA b/l Heart: S1S2, RRR Abd: Soft, nontender, BS present Ext: ROM wnl, mild bilateral pedal edema Neuro: No focal deficit - Assessment and Plan (1) Acute on chronic systolic CHF (congestive heart failure), NYHA class 3 Current Visit: Yes Status: Acute Assessment and Plan: Has pulmonary edema and 2+ pitting edema On lasix and spironolactone. Strict I and O. Fluid restriction diet. Patient has LVEF 35% per recent echo, has AICD implanted. (2) Acute kidney injury superimposed on CKD Current Visit: Yes Status: Acute Assessment and Plan: Stable renal function. Continue avoid nephrotoxic medications. Follow-up nephrology recommendations (3) Acute hepatic encephalopathy Current Visit: Yes Status: Resolved Assessment and Plan: Patient is awake alert. Ammonia level get down. Patient has good bowel movement. Continue lactulose and rifaximin. (4) Hepatorenal syndrome Current Visit: Yes Status: Suspected Assessment and Plan: Less likely hepatorenal syndrome as creatinine level is at about baseline. Will continue follow-up nephrology recommendations. (5) Hypothyroidism Current Visit: Yes Status: Acute Assessment and Plan: Continue levothyroxine (6) Pneumonia Current Visit: Yes Status: Acute Assessment and Plan: Recently discharged from the hospital. has cough worsening SOB and chills. Symptoms improved after treatment. Cover empirically with zosyn. Obtain cultures. Check MRSA screen to see if need to add MRSA coverage. (7) Atrial fibrillation Current Visit: Yes Status: Acute Assessment and Plan: Continue amiodarone and apixaban (8) DVT prophylaxis Current Visit: Yes Status: Acute Assessment and Plan: On apixaban - Time Spent with Patient Total time spent is greater than 50% in coordination of care (as documented) at patient's floor/unit and/or counseling patient: 30 minutes 25 - 35 minutes Internal Medicine: Result - Labs CBC & Chem 7: 08/31/18 05:34 08/31/18 05:34 Labs: Short CBC 08/31/18 Range/Units 05:34 WBC 7.4 (4.3-11.1) K/mcL Hgb 9.5 L (12.9-16.9) g/dL Hct 31.3 L (37.5-50.1) % Plt Count 142 (140-400) K/mcL Neutrophils # 4.8 (1.6-8.9) K/mcL BMP 08/31/18 05:34 Sodium 135 L Potassium 4.1 Chloride 97 L Carbon Dioxide 28 BUN 76 H Creatinine 2.31 H Glucose 158 H Calcium 9.8 Liver Function 08/31/18 Range/Units 05:34 Total Bilirubin 2.8 H (0.3-1.0) mg/dL AST 48 H (13-39) Units/L ALT 34 (7-52) Units/L Alkaline Phosphatase 126 H (34-104) Units/L Albumin 3.6 (3.5-5.7) g/dL Consult Discharge Plan - Plan Referrals: Trevor Horowitz MD [Primary Care Provider] - (5) Hypothyroidism Qualifiers: Qualified Code(s): E03.9 - Hypothyroidism, unspecified (6) Pneumonia Qualifiers: Pneumonia type: due to unspecified organism Laterality: bilateral (7) Atrial fibrillation Qualifiers: Qualified Code(s): I48.91 - Unspecified atrial fibrillation
[2018-08-31] MEDS: Isosorbide MONOnitrate (24 HR) 30 MG TAB.ER.24H PO SCH (17:47)
[2018-09-01] MEDS: Piperacillin/Tazobactam 3.375 GM in 0.9 % Sodium Chloride Mini Bag 100 ML IVPB SCH ×2 (00:28→09:23)
[2018-09-01] MEDS: GuaiFENesin Liq 200 MG/10 ML UDC PO SCH ×3 (00:29→12:37)
[2018-09-01 08:37] LABS: Basophils % 0.6 %; Eosinophils # 0.2 K/mcL (0.0-0.6); Eosinophils % 2.3 %; Hematocrit 30.3 % (37.5-50.1); Hemoglobin 9.3 g/dL (12.9-16.9); Immature Granulocytes % 0.4 % (0-4); Lymphocytes # 1.4 K/mcL (0.6-4.6); Lymphocytes % 19.4 %; Mean Corpuscular HGB Conc 30.7 g/dL (31.6-35.5); Mean Corpuscular Hemoglobin 28.7 pg (28.0-33.3); Mean Corpuscular Volume 93.5 fL (83.0-100.0); Mean Platelet Volume 9.5 fL (9.4-12.4); Monocytes # 0.6 K/mcL (0.0-1.3); Monocytes % 7.9 %; Neutrophils # 4.8 K/mcL (1.6-8.9); Platelet Count 129 K/mcL (140-400); Red Blood Count 3.24 M/mcL (4.19-5.50); Red Cell Distribution Width 19.9 % (11.5-14.5); Segmented Neutrophils % 69.4 %
[2018-09-01 08:57] LABS: Calcium 9.5 mg/dL (8.6-10.3); Potassium 3.8 mEq/L (3.5-5.1)
[2018-09-01] MEDS: Insulin LISPRO 300 UNITS/3 ML VIAL SQ SCH ×2 (09:17→12:37)
[2018-09-01] MEDS: Cholecalciferol (D-3) 1,000 UNIT TABLET PO SCH (09:18)
[2018-09-01] MEDS: Metoprolol XL (24 HR) Succ 25 MG TAB.ER.24H PO SCH (09:18)
[2018-09-01] MEDS: Furosemide 40 MG/4 ML VIAL IVP SCH (09:18)
[2018-09-01] MEDS: Ascorbic Acid 500 MG TABLET PO SCH (09:18)
[2018-09-01] MEDS: Lactulose Oral Soln 20 GM/30 ML UDC PO SCH (09:18)
[2018-09-01] MEDS: Cyanocobalamin (B-12) 1,000 MCG TABLET PO SCH (09:19)
[2018-09-01] MEDS: *HR* Amiodarone 200 MG TABLET PO SCH (09:19)
[2018-09-01] MEDS: Multivit/Ca/Min/Fe/FA 1 TAB TABLET PO SCH (09:19)
[2018-09-01] MEDS: Loratadine 10 MG TABLET PO SCH (09:19)
[2018-09-01] MEDS: Apixaban 2.5 MG TABLET PO SCH (09:20)
[2018-09-01 11:20] VITALS: BP 121/66
--- NOTE | 2018-09-01 11:44 | Nephrology Progress Note ---
Date of Encounter: 09/01/18 Time of Encounter: 11:44 - Assessment and Plan (1) Acute kidney injury superimposed on CKD Current Visit: Yes Status: Acute Patient with acute kidney injury on chronic kidney disease per his previous admission vs new baseline renal function. Renal function is slightly worse on iv furosemide. There is suspected hepatorenal syndrome. Based on his presentation I recommend changing iv furosemide to oral furosemide. No need for dialysis at this time. Avoid unnecessary nephrotoxins. Adjust medication as needed for kidney function. PT ordered. (2) Acute on chronic systolic CHF (congestive heart failure), NYHA class 3 Current Visit: Yes Status: Acute (3) Hepatorenal syndrome Current Visit: Yes Status: Suspected (4) Anemia Current Visit: No Status: Acute Qualifiers: Anemia type: unspecified type Qualified Code(s): D64.9 - Anemia, unspecified (5) CHF (congestive heart failure) Current Visit: No Status: Acute Qualifiers: Heart failure type: unspecified Heart failure chronicity: unspecified Qualified Code(s): I50.9 - Heart failure, unspecified (6) Cirrhosis Current Visit: No Status: Acute Qualifiers: Hepatic cirrhosis type: unspecified hepatic cirrhosis Ascites presence: without ascites Qualified Code(s): K74.60 - Unspecified cirrhosis of liver (7) Normocytic anemia Current Visit: No Status: Chronic Subjective Principal diagnosis: CRISTY on CKD Interval history: The patient was seen and evaluated. He has no new complaints. He feels his breathing is better. Objective - Vital Signs Vital signs: Vital Signs Temp Pulse Resp BP Pulse Ox 09/01/18 11:12 97.6 F 73 16 121/66 93 09/01/18 07:02 97.5 F L 70 16 122/56 95 09/01/18 03:47 97.6 F 73 18 110/65 91 09/01/18 01:08 98.2 F 79 16 111/68 97 08/31/18 19:26 97.7 F 74 18 137/77 98 08/31/18 14:49 97.4 F L 72 16 127/75 98 Intake and Output 08/31/18 09/01/18 09/01/18 23:59 07:59 15:59 Intake Total 480 / 1660 200 / 320 120 / 320 Output Total 550 / 1150 400 / 750 350 / 750 Balance -70 / 510 -200 / -430 -230 / -430 Intake: IV Fluids 200 / 200 Zosyn 3.375 GM In 0.9 % Sodium 200 / 200 Chloride (Mini-Bag +) 100 ML @ 25 mls/hr IVPB Q8HR [facility] Rx#: [id number] Oral 480 / 1460 120 / 120 Output: Urine 550 / 1150 400 / 750 350 / 750 Other: Meal Dinner Breakfast Percent of Meal Consumed 75% 100% Stool Size Large Large Small Stool Consistency liquid liquid liquid Stool Color Green Green Green # Voids 1 # Bowel Movements 1 0 1 Weight 122 kg Blood Glucose* 255 172 372 Patient Weight 09/01/18 23:59 Weight 122 kg - General Appearance General appearance: Present: well-developed, well-nourished, obese EENT: Present: ATNC Neck: Present: supple Cardiology: Present: edema, regular rate Gastrointestinal: Present: no tenderness Integumentary: Present: warm and dry Neurologic: Present: alert and oriented x3 Musculoskeletal: Present: no cyanosis Psychiatric: Present: mood/affect appropriate - Lab 09/01/18 08:27 09/01/18 08:27 Most recent lab results 09/01/18 08:27 Calcium 9.5 Consult Discharge Plan - Plan Referrals: Trevor Horowitz MD [Primary Care Provider] -
--- NOTE | 2018-09-01 13:35 | Discharge Summary ---
- NOTES TO OUTPATIENT PROVIDER Notes to Outpatient Provider: Patient with history of systolic congestive heart failure, cirrhosis of the liver, hypertension and hypothyroidism was hospitalized here with hepatorenal syndrome and acute on chronic systolic congestive heart failure with acute kidney injury. He was treated with albumin and diuresis along with lactulose for his hepatic encephalopathy. Nephrology was also consulted to help manage this patient. Slowly his mental status improved and he is now doing much better. He is clinically stable for discharge. His chronic kidney disease appears to have progressed to a new baseline as his renal function has been worse since July this year. He will follow up with nephrology as outpatient and have a CBC and basic panel checked prior to his visit. Orders not resulted at time of discharge: Pending orders 08/29/18 05:12 ECG 12 lead ECG [ECG] Stat 08/29/18 05:53 Culture,Blood [BC] Stat 08/29/18 08:41 Legionella Antigen [RM] Routine Streptococcal pneumoniae urin antigen [S. Pneumoniae Antigen] [RM] Routine Date of Encounter: 09/01/18 Time of Encounter: 10:00 - Discharge Diagnosis (1) Acute on chronic systolic CHF (congestive heart failure), NYHA class 3 Priority: Primary Status: Acute (2) Acute kidney injury superimposed on CKD Priority: Secondary Status: Acute (3) Acute hepatic encephalopathy Priority: Secondary Status: Resolved (4) Hepatorenal syndrome Priority: Secondary Status: Suspected (5) Hypothyroidism Priority: Secondary Status: Acute Qualifiers: Qualified Code(s): E03.9 - Hypothyroidism, unspecified (6) Pneumonia Priority: Secondary Status: Acute Qualifiers: Pneumonia type: due to unspecified organism Laterality: bilateral Lung l ocation: unspecified part of lung Qualified Code(s): J18.9 - Pneumonia, unspecified organism (7) Atrial fibrillation Priority: Secondary Status: Acute Qualifiers: Qualified Code(s): I48.91 - Unspecified atrial fibrillation (8) DVT prophylaxis Priority: Secondary Status: Acute (9) CKD (chronic kidney disease), stage III Priority: Secondary Status: Chronic Hospital course: Mr. Purcell is a 63 year old male Patient with history of systolic congestive heart failure, cirrhosis of the liver, hypertension and hypothyroidism was hospitalized here with hepatorenal syndrome and acute on chronic systolic congestive heart failure with acute kidney injury. He was treated with albumin and diuresis along with lactulose for his hepatic encephalopathy. Nephrology was also consulted to help manage this patient. Slowly his mental status improved and he is now doing much better. He is clinically stable for discharge. His chronic kidney disease appears to have progressed to a new baseline as his renal function has been worse since July this year. He will follow up with nephrology as outpatient and have a CBC and basic panel checked prior to his visit. He was also suspected of having pneumonia initial presentation and has been receiving antibiotics here. His cultures have been negative. He will be discharged on Augmentin to complete treatment course. He is being placed on Lasix 40 mg twice daily along with spironolactone 50 mg by mouth daily. Discharge discussed with: patient - Time Spent with Patient Total time spent providing and/or coordinating discharge services: Time spent: Greater than 30 minutes (35 min) - Discharge Medications Prescriptions: New Rifaximin [Xifaxan] 550 mg PO BID #60 tablet Lactulose 20 gm PO TID #120 udc Spironolactone [Aldactone] 50 mg PO DAILY #30 tablet Furosemide [Lasix] 40 mg PO BID #60 tablet Amoxicillin/Clavulanate [Augmentin] 500 mg PO BIDWM #8 tablet Continued Levothyroxine [Synthroid] 112 mcg PO 0630 L.acidoph,Paracasei, B.lactis [Probiotic] 1 cap PO BID Apixaban [Eliquis] 2.5 mg PO BID Isosorbide MONOnitrate (24 HR) [Imdur] 30 mg PO QPM Cholecalciferol (Vitamin D3) [Children's Vitamin D3] 3,000 unit PO DAILY Ascorbate Calcium [Vitamin C] 500 mg PO DAILY Multivitamin [Daily Multiple Vitamin] 1 each PO DAILY Mexiletine [Mexitil] 150 mg PO Q8HR Metoprolol Succinate [Toprol Xl] 25 mg PO DAILY Glimepiride [Amaryl] 1 mg PO DAILY PRN PRN Reason: BLOOD GLUCOSE GREATER THAN 250 Gabapentin [Neurontin] 300 mg PO TID Ferrous Sulfate [Iron] 325 mg PO DAILY Cyanocobalamin (Vitamin B-12) [Vitamin B12] 1,000 mcg PO DAILY Amiodarone [Cordarone] 200 mg PO DAILY Omeprazole [PriLOSEC] 40 mg PO DAILY #30 cap Cetirizine HCl [24Hour Allergy] 10 mg PO DAILY Atorvastatin Calcium [Lipitor] 80 mg PO HS Allopurinol [Zyloprim] 300 mg PO DAILY #0 Aspirin [Adult Aspirin] 81 mg PO DAILY Discontinued Lactulose 10 gm PO TID No Action Torsemide [Demadex] 80 mg PO BID #240 tablet Home Medications: Amiodarone [Cordarone] 200 mg PO DAILY 08/11/18 [History] Apixaban [Eliquis] 2.5 mg PO BID 08/11/18 [History] Ascorbate Calcium [Vitamin C] 500 mg PO DAILY 08/11/18 [History] Cholecalciferol (Vitamin D3) [Children's Vitamin D3] 3,000 unit PO DAILY 08/11/18 [History] Cyanocobalamin (Vitamin B-12) [Vitamin B12] 1,000 mcg PO DAILY 08/11/18 [History] Ferrous Sulfate [Iron] 325 mg PO DAILY 08/11/18 [History] Gabapentin [Neurontin] 300 mg PO TID 08/11/18 [History] Glimepiride [Amaryl] 1 mg PO DAILY PRN 08/11/18 [History] Isosorbide MONOnitrate (24 HR) [Imdur] 30 mg PO QPM 08/11/18 [History] L.acidoph,Paracasei, B.lactis [Probiotic] 1 cap PO BID 08/11/18 [History] Levothyroxine [Synthroid] 112 mcg PO 0630 08/11/18 [History] Metoprolol Succinate [Toprol Xl] 25 mg PO DAILY 08/11/18 [History] Mexiletine [Mexitil] 150 mg PO Q8HR 08/11/18 [History] Multivitamin [Daily Multiple Vitamin] 1 each PO DAILY 08/11/18 [History] Omeprazole [PriLOSEC] 40 mg PO DAILY #30 cap 08/14/18 [Rx] Atorvastatin Calcium [Lipitor] 80 mg PO HS 08/18/18 [History] Cetirizine HCl [24Hour Allergy] 10 mg PO DAILY 08/18/18 [History] Allopurinol [Zyloprim] 300 mg PO DAILY #0 08/23/18 [Rx] Torsemide [Demadex] 80 mg PO BID #240 tablet 08/23/18 [Rx] Aspirin [Adult Aspirin] 81 mg PO DAILY 08/30/18 [History] Amoxicillin/Clavulanate [Augmentin] 500 mg PO BIDWM #8 tablet 09/01/18 [Rx] Furosemide [Lasix] 40 mg PO BID #60 tablet 09/01/18 [Rx] Lactulose 20 gm PO TID #120 udc 09/01/18 [Rx] Rifaximin [Xifaxan] 550 mg PO BID #60 tablet 09/01/18 [Rx] Spironolactone [Aldactone] 50 mg PO DAILY #30 tablet 09/01/18 [Rx] Allergies/Adverse Reactions: 3 Allergy/AdvReac Type Severity Reaction Status Date / Time No Known Allergies Allergy Verified 08/30/18 10:45 Date of admission: 08/29/18 14:59 Primary care physician: Trevor Horowitz MD Consults: 08/29/18 07:57 Consult to Nephrology [CONS] Routine Consulting Provider: Kidney Lee Ann/DARIEL/NAT/JERSON Reason for Consult: hepatorenal syndrome, volume overload with Vu Call Completed: No 09/01/18 10:18 Consult to Physical Therapy [CONS] Routine Comment: Evaluate, develop and implement POC Reason for Consult: Patient request PT consult for possible HH PT states he has been unstable at home. Does patient have active BEDREST order?: No Is patient medically & hemodynamically stable?: Yes Patient assessed for mobility or mobilized this visit?: No Discharging clinician: Yannick Garcia Anticipated date of discharge: 09/01/18 - Constitutional Vitals: Temp Pulse Resp BP Pulse Ox 97.6 F 73 16 121/66 93 09/01/18 11:12 09/01/18 11:12 09/01/18 11:12 09/01/18 11:12 09/01/18 11:12 General appearance: Present: cooperative, A&O X 3, pleasant, answers questions appropriately Exam: General: Patient is alert, no acute distress, oriented x 3 Respiratory: Good respiratory effort. Normal breath sounds. No wheezing or crackles. Cardiovascular: Regular rate and rhythm. s1 and s2 normal No clicks, rubs, gallops, or murmurs. Mild bilateral pedal edema Abdomen: Abdomen is soft, nontender. Bowel sounds are present Neuro: Alert oriented x 3 normal cranial nerves, no focal deficits - Patient Status Disposition: Home Health Service Condition: Fair Functional capacity at discharge: uses cane/walker Overall status at discharge: patient is progressing back to baseline - Ambulatory Orders Ambulatory Orders: Basic Metabolic Panel [CHEM] Time Frame: 1 Week, Facility: [facility], Location: Lab Complete Blood Count [HEME] Time Frame: 1 Week, Facility: [facility], Location: Lab - Discharge Instructions Instructions: Heart Failure (DC), Atrial Fibrillation (DC) Follow Up With: Trevor Horowitz MD [Primary Care Provider] - (in 1-2 weeks) Sánchez Glass MD [Partnered Physician] - (in 1-2 weeks) - Diet and Activity Activity: as per physical therapy, increase activity as tolerated Diet: low fat, low cholesterol, low salt diet, other (Fluid restriction to 1.5 L per day)
--- NOTE | 2018-09-01 13:55 | Physician Discharge Referral ---
Home Health/Hosp Referral Info Transfer to: Home Health Provider in Charge Post Discharge: PCP - Diagnosis (1) Acute on chronic systolic CHF (congestive heart failure), NYHA class 3 Priority: Primary Status: Acute (2) Acute kidney injury superimposed on CKD Priority: Secondary Status: Acute (3) Acute hepatic encephalopathy Priority: Secondary Status: Resolved (4) Hepatorenal syndrome Priority: Secondary Status: Suspected (5) Hypothyroidism Priority: Secondary Status: Acute (6) Pneumonia Priority: Secondary Status: Acute (7) Atrial fibrillation Priority: Secondary Status: Acute (8) DVT prophylaxis Priority: Secondary Status: Acute (9) CKD (chronic kidney disease), stage III Priority: Secondary Status: Chronic - Respiratory Orders Smoking Cessation: Smoking cessation has been advised. For more information, call the [employer] Tobacco Quit Line at 1-445-YXRM-NOW. - Diet/Nutrition Diet/Nutrition Orders: Cardiac Diet/Nutrition: List: Fluid restriction to 1.5 L per day - Activity Activity Orders: Walker - Services Needed Following services are medically necessary services: Nursing, Physical Therapy, Occupational Therapy, Med Social Work - Transfer Medications Prescriptions: Spironolactone [Aldactone] 50 mg PO DAILY #30 tablet Amoxicillin/Clavulanate [Augmentin] 500 mg PO BIDWM #8 tablet Lactulose 20 gm PO TID #120 udc Furosemide [Lasix] 40 mg PO BID #60 tablet Rifaximin [Xifaxan] 550 mg PO BID #60 tablet Home Medications: Amiodarone [Cordarone] 200 mg PO DAILY 08/11/18 [History] Apixaban [Eliquis] 2.5 mg PO BID 08/11/18 [History] Ascorbate Calcium [Vitamin C] 500 mg PO DAILY 08/11/18 [History] Cholecalciferol (Vitamin D3) [Children's Vitamin D3] 3,000 unit PO DAILY 08/11/18 [History] Cyanocobalamin (Vitamin B-12) [Vitamin B12] 1,000 mcg PO DAILY 08/11/18 [History] Ferrous Sulfate [Iron] 325 mg PO DAILY 08/11/18 [History] Gabapentin [Neurontin] 300 mg PO TID 08/11/18 [History] Glimepiride [Amaryl] 1 mg PO DAILY PRN 08/11/18 [History] Isosorbide MONOnitrate (24 HR) [Imdur] 30 mg PO QPM 08/11/18 [History] L.acidoph,Paracasei, B.lactis [Probiotic] 1 cap PO BID 08/11/18 [History] Levothyroxine [Synthroid] 112 mcg PO 0630 08/11/18 [History] Metoprolol Succinate [Toprol Xl] 25 mg PO DAILY 08/11/18 [History] Mexiletine [Mexitil] 150 mg PO Q8HR 08/11/18 [History] Multivitamin [Daily Multiple Vitamin] 1 each PO DAILY 08/11/18 [History] Omeprazole [PriLOSEC] 40 mg PO DAILY #30 cap 08/14/18 [Rx] Atorvastatin Calcium [Lipitor] 80 mg PO HS 08/18/18 [History] Cetirizine HCl [24Hour Allergy] 10 mg PO DAILY 08/18/18 [History] Allopurinol [Zyloprim] 300 mg PO DAILY #0 08/23/18 [Rx] Torsemide [Demadex] 80 mg PO BID #240 tablet 08/23/18 [Rx] Aspirin [Adult Aspirin] 81 mg PO DAILY 08/30/18 [History] Amoxicillin/Clavulanate [Augmentin] 500 mg PO BIDWM #8 tablet 09/01/18 [Rx] Furosemide [Lasix] 40 mg PO BID #60 tablet 09/01/18 [Rx] Lactulose 20 gm PO TID #120 udc 09/01/18 [Rx] Rifaximin [Xifaxan] 550 mg PO BID #60 tablet 09/01/18 [Rx] Spironolactone [Aldactone] 50 mg PO DAILY #30 tablet 09/01/18 [Rx] Allergies/Adverse Reactions: Allergy/AdvReac Type Severity Reaction Status Date / Time No Known Allergies Allergy Verified 08/30/18 10:45 Certification: Further, I certify that my clinical findings support that this patient is homebound (i.e. absences from home require considerable and taxing effort and are for medical reasons or faith services or infrequently or short duration when for other reasons) because: Homebound Reason: Patient requires assistance of a person or device to safely leave home Attestation: My signature below is to certify that this patient is under my care and that I, or nurse practitioner, or a physician's assistant accounting manager working with me, has a [id number] encounter with this patient.
== END 2018-09-01 16:11 | disposition home health service (06) | DRG 441 ==
LOC: EMEROOARM 05:03 → 3ANU 05:03 → SUATTDRO 14:59
PROVIDERS: ADMIT Student in an Organized Health Care Education/Training Program; ATTEND Internal Medicine

== ENCOUNTER 2018-09-05 01:29 | Inpatient (IN) ==
--- NOTE | 2018-09-05 02:04 | Emergency Department Note ---
Disposition Clinical Impression: Acute on chronic systolic CHF (congestive heart failure), NYHA class 3, Acute kidney injury superimposed on CKD, Elevated troponin Anemia Qualifiers: Anemia type: unspecified type Qualified Code(s): D64.9 - Anemia, unspecified Disposition: Admitted As Inpatient Condition: Fair Time of Disposition: 03:46 General Adult HPI - General Stated complaint: Urinary Retention Time Seen by Provider: 09/05/18 01:34 Source: patient Mode of arrival: ambulatory Limitations: no limitations Nursing Notes Reviewed: Yes Vital Signs Reviewed: Yes - History of Present Illness HPI Narrative: 63 yo male with past medical history of heart failure, liver disease, kidney disease presents to the emergency department with the chief complaint of decreased urinary output and increased swelling of his legs, abdomen, and i ncreased shortness of breath. The patient was recently admitted for CHF exacerbation and was diuresed with Lasix. Patient states once he was switched from IV to oral Lasix his urine output decreased. He has also started retaining fluid again and thinks that he is in a another heart failure exacerbation. He is scheduled to see Dr. Glass, fisheries manager, for worsening kidney function Thursday of next week. He denies fever, chest pain, abdominal pain, burning with urination, blood in his urine. He states he has urinated approximately 100 mL per day since Thursday. Pain Scale: 0 - Related Data Home Medications Medication Instructions Recorded Confirmed Amiodarone [Cordarone] 200 mg PO DAILY 08/11/18 09/05/18 Apixaban [Eliquis] 2.5 mg PO BID 08/11/18 09/05/18 Ascorbate Calcium [Vitamin C] 500 mg PO DAILY 08/11/18 09/05/18 Cholecalciferol (Vitamin D3) 3,000 unit PO DAILY 08/11/18 09/05/18 [Children's Vitamin D3] Cyanocobalamin (Vitamin B-12) 1,000 mcg PO DAILY 08/11/18 09/05/18 [Vitamin B12] Ferrous Sulfate [Iron] 325 mg PO DAILY 08/11/18 09/05/18 Gabapentin [Neurontin] 300 mg PO TID 08/11/18 09/05/18 Glimepiride [Amaryl] 1 mg PO DAILY PRN 08/11/18 09/05/18 Isosorbide MONOnitrate (24 HR) 30 mg PO QPM 08/11/18 09/05/18 [Imdur] L.acidoph,Paracasei, B.lactis 1 cap PO BID 08/11/18 09/05/18 [Probiotic] Levothyroxine [Synthroid] 112 mcg PO 0630 08/11/18 09/05/18 Metoprolol Succinate [Toprol Xl] 25 mg PO DAILY 08/11/18 09/05/18 Mexiletine [Mexitil] 150 mg PO Q8HR 08/11/18 09/05/18 Multivitamin [Daily Multiple 1 each PO DAILY 08/11/18 09/05/18 Vitamin] Atorvastatin Calcium [Lipitor] 80 mg PO HS 08/18/18 09/05/18 Cetirizine HCl [24Hour Allergy] 10 mg PO DAILY 08/18/18 09/05/18 Aspirin [Adult Aspirin] 81 mg PO DAILY 08/30/18 09/05/18 Previous Rx's Medication Instructions Recorded Omeprazole [PriLOSEC] 40 mg PO DAILY #30 cap 08/14/18 Allopurinol [Zyloprim] 300 mg PO DAILY #0 08/23/18 Torsemide [Demadex] 80 mg PO BID #240 tablet 08/23/18 Amoxicillin/Clavulanate [Augmentin] 500 mg PO BIDWM #8 tablet 09/01/18 Furosemide [Lasix] 40 mg PO BID #60 tablet 09/01/18 Lactulose 20 gm PO TID #120 udc 09/01/18 Rifaximin [Xifaxan] 550 mg PO BID #60 tablet 09/01/18 Spironolactone [Aldactone] 50 mg PO DAILY #30 tablet 09/01/18 Allergies Allergy/AdvReac Type Severity Reaction Status Date / Time No Known Allergies Allergy Verified 09/05/18 01:46 All systems ED: reviewed and negative except as stated. Review of Systems: As Per HPI Constitutional: Denies: fever, chills, weakness Cardiovascular: Reports: dyspnea on exertion, orthopnea, edema. Denies: chest pain, palpitations, syncope Respiratory: Reports: dyspnea. Denies: cough, wheezes Gastrointestinal: Denies: abdominal pain, nausea, vomiting, diarrhea Genitourinary: Reports: other (Decreased urination). Denies: dysuria, hematuria Musculoskeletal: Denies: back pain, neck pain Integumentary: Denies: rash Neurological: Denies: headache Endocrine: Reports: fatigue Past Medical History - Past Medical History Attestation: Yes The following information was validated with the patient. Source: patient Medical history: Reports: CHF, COPD, diabetes, hyperlipidemia, hypertension, renal disease, thyroid disease Psychiatric history: Reports: no psych history - Social History Smoking Status: Former smoker Smokeless Tobacco Status: No Alcohol use: Reports: none Drug use: Reports: none Physical Exam - General Limitations: no limitations General appearance: alert, in no apparent distress - Head Head exam: atraumatic, normocephalic - Eye Eye exam: Present: normal appearance, PERRL, EOMI - ENT ENT exam: normal exam, normal oropharynx - Neck Neck exam: Present: normal inspection. Absent: tenderness, lymphadenopathy - Chest Chest inspection: Present: normal inspection. Absent: tenderness, rash - Respiratory Respiratory exam: Present: wheezes - Cardiovascular Cardiovascular exam: Present: regular rate, normal rhythm - Abdominal Exam Abdominal exam: Present: soft, Non-Tender, distention. Absent: guarding, rebound, rigidity - Extremities Exam Extremities exam: Absent: tenderness, pedal edema (2+ pitting edema of bilateral lower extremities.), calf tenderness - Neurological Exam Neurological exam: Present: alert, oriented X3 - Psychiatric Psychiatric exam: Present: normal affect, normal mood - Skin Skin exam: Present: warm, dry, intact Course Vital Signs Temperature 97.8 F 09/05/18 01:49 Pulse Rate 70 09/05/18 01:49 Respiratory Rate 24 09/05/18 01:49 Blood Pressure 120/58 09/05/18 01:49 O2 Sat by Pulse Oximetry 95 09/05/18 01:49 Temperature 97.8 F 09/05/18 01:50 Pulse Rate 70 09/05/18 02:14 Respiratory Rate 24 09/05/18 02:14 Blood Pressure 117/64 09/05/18 02:14 O2 Sat by Pulse Oximetry 94 09/05/18 02:14 Oxygen Delivery Oxygen Delivery Room Air Medical Decision Making - MDM Narrative Medical decision making narrative: Patient presents with decreased urinary output and increased swelling concerning for CHF exacerbation. We will obtain EKG, chest x-ray, basic labs and troponin and likely admitted to the hospital for continued diuresis. Patient states he feels as if he needs to urinate but is unable to, therefore we will straight catheter him to see if he is retaining any urine. 0345 - patient's lab work is significant for anemia with hemoglobin of 7.7, CRISTY on CKD with a creatinine which has doubled since discharge 4 days ago, and patient's chest x-ray demonstrates chronic stable pulmonary edema with cardiomegaly and effusions. The patient will be admitted for a CHF exacerbation with his new CRISTY so that he may be properly diuresed. Patient has been accepted by Dr. Masterson, hospitalist for admission at this time. - Medical Records Medical records reviewed: Yes I reviewed the patient's medical records. - Lab Data Lab results reviewed: Yes I reviewed the patient's lab results. Result diagrams: 09/05/18 02:26 09/05/18 02:26 Lab Results 09/05/18 09/05/18 09/05/18 Range/Units 02:26 02:26 02:26 WBC 5.7 (4.3-11.1) K/mcL RBC 2.67 L (4.19-5.50) M/mcL Hgb 7.7 L D (12.9-16.9) g/dL Hct 25.4 L (37.5-50.1) % MCV 95.1 (83.0-100.0) fL MCH 28.8 (28.0-33.3) pg MCHC 30.3 L (31.6-35.5) g/dL RDW 20.7 H (11.5-14.5) % Plt Count 132 L (140-400) K/mcL MPV 10.5 (9.4-12.4) fL Immature Gran % 0.3 (0-4) % Seg Neutrophils % 71.9 % Lymphocytes % 12.6 % Monocytes % 11.2 % Eosinophils % 3.5 % Basophils % 0.5 % Neutrophils # 4.1 (1.6-8.9) K/mcL Lymphocytes # 0.7 (0.6-4.6) K/mcL Monocytes # 0.6 (0.0-1.3) K/mcL Eosinophils # 0.2 (0.0-0.6) K/mcL Basophils # 0.0 (0.0-0.2) K/mcL Sodium 132 L (136-145) mEq/L Potassium 4.2 (3.5-5.1) mEq/L Chloride 98 (98-107) mEq/L Carbon Dioxide 21 L (23-29) mEq/L BUN 95 H (8-23) mg/dL Creatinine 5.73 H (0.70-1.30) mg/dL Est GFR ( Amer) 12 L (> 60) Est GFR (Non-Af Amer) 10 L (> 60) BUN/Creatinine Ratio 17 (6-26) Glucose 167 H (70-105) mg/dL Calculated Osmolality 307 H (280-300) Calcium 8.3 L (8.6-10.3) mg/dL Troponin I 0.06 H* (< 0.04) ng/mL B-Natriuretic Peptide 487 H (Less than 100) pg/mL - Radiology Data Radiology results reviewed: Yes I reviewed the patient's radiology results. - EKG Data EKG #1 EKG attestation: Yes I reviewed and interpreted this EKG. EKG results narrative: EKG obtained at 2:10 on 09/05/2018 Heart rate 70 bpm, IL interval 186, QRS duration to 248, QT 555, QTc 599 Atrial paced rhythm without any ST segment elevations. No signs concerning for acute ischemia. EKG does not meet sgarbossa criteria. No old EKG for comparison.
[2018-09-05 02:38] LABS: Basophils % 0.5 %; Eosinophils # 0.2 K/mcL (0.0-0.6); Eosinophils % 3.5 %; Hematocrit 25.4 % (37.5-50.1); Immature Granulocytes % 0.3 % (0-4); Lymphocytes # 0.7 K/mcL (0.6-4.6); Lymphocytes % 12.6 %; Mean Corpuscular HGB Conc 30.3 g/dL (31.6-35.5); Mean Corpuscular Hemoglobin 28.8 pg (28.0-33.3); Mean Corpuscular Volume 95.1 fL (83.0-100.0); Mean Platelet Volume 10.5 fL (9.4-12.4); Monocytes # 0.6 K/mcL (0.0-1.3); Monocytes % 11.2 %; Neutrophils # 4.1 K/mcL (1.6-8.9); Platelet Count 132 K/mcL (140-400); Red Blood Count 2.67 M/mcL (4.19-5.50); Red Cell Distribution Width 20.7 % (11.5-14.5); Segmented Neutrophils % 71.9 %
[2018-09-05 02:39] LABS: Hemoglobin 7.7 g/dL (12.9-16.9)
[2018-09-05 03:02] LABS: Calcium 8.3 mg/dL (8.6-10.3); Potassium 4.2 mEq/L (3.5-5.1)
[2018-09-05 03:07] LABS: Troponin I 0.06 ng/mL (< 0.04)
--- NOTE | 2018-09-05 03:50 | Internal Med History&Physical ---
<Ricardo Cortes S - Last Filed: 09/05/18 05:11> Date of Encounter: 09/05/18 Time of Encounter: 04:24 Internal Medicine - H&P: HPI Chief complaint: not peeing Admitted From: Home Plans for Post Hospital Care: Home History of present illness: Mr. Purcell is a 63 year old male with T2DM, morbid obesity, peripheral neuropathy, GERD, a fib on eliquis, hypothyroidism, and CKD. He was recently here and discharged on Saturday September 01, 2018. He was sent home with lasix 40 mg PO BID. He states he hasn't peed more than 100mL since leaving and that his lasix isn't working. He feels as though he has swelled up with fluid since then. He also states that he has had blood coming out of his rectum because of straining and during catheterization he had blood return. He states that he has had to strain because he cannot get himself to urinate. He denies any other sources of bleeding like nose bleeds or gum bleeding. He has had trouble breathing and states that he has had a harder time laying down flat. He gets ve ry short of breath doing so. He denies any active chest pain, palpiltations, N/V/D, or new lesions. In the ER he was found to have a creatinine of 5.73, an elevated BNP and a troponin of 0.06. XR of his chest showed stable pulmonary edema. He will be admitted for further evaluation, nephrology will be consulted. Past Med Surg Social Fam HX - Past Medical History Medical history: CHF, COPD, diabetes, hyperlipidemia, hypertension, renal disease, thyroid disease Additional medical history: gout, type 2 DM Psychiatric history: no psych history - Past Surgical History Additional surgical history: CTR bilateral hands, Ventricular septal repair. - Social History Smoking Status: Former smoker Smokeless Tobacco Status: No Alcohol use: none Drug use: none - Family History Mother Hx Family Cardiac Disorders: Yes (mother/father heart attack) Hx Family Respiratory Disorders: No Hx Family Cancer: No Hx Family GI Disorders: No Hx Family Endocrine Disorder: Yes (DM sister/brother) Hx Family Neuromuscular Disorders: No Hx Family Neurologic Disorders: No Hx Family HEENT Disorders: No Hx Family Autoimmune Disorders: No Father Adopted: No Race: Hx Family Cardiac Disorders: Yes Hx Family Cancer: Yes (brain cancer) Internal Medicine - H&P: Meds Amiodarone [Cordarone] 200 mg PO DAILY 08/11/18 [History] Apixaban [Eliquis] 2.5 mg PO BID 08/11/18 [History] Ascorbate Calcium [Vitamin C] 500 mg PO DAILY 08/11/18 [History] Cholecalciferol (Vitamin D3) [Children's Vitamin D3] 3,000 unit PO DAILY 08/11/18 [History] Cyanocobalamin (Vitamin B-12) [Vitamin B12] 1,000 mcg PO DAILY 08/11/18 [History] Ferrous Sulfate [Iron] 325 mg PO DAILY 08/11/18 [History] Gabapentin [Neurontin] 300 mg PO TID 08/11/18 [History] Glimepiride [Amaryl] 1 mg PO DAILY PRN 08/11/18 [History] Isosorbide MONOnitrate (24 HR) [Imdur] 30 mg PO QPM 08/11/18 [History] L.acidoph,Paracasei, B.lactis [Probiotic] 1 cap PO BID 08/11/18 [History] Levothyroxine [Synthroid] 112 mcg PO 0630 08/11/18 [History] Metoprolol Succinate [Toprol Xl] 25 mg PO DAILY 08/11/18 [History] Mexiletine [Mexitil] 150 mg PO Q8HR 08/11/18 [History] Multivitamin [Daily Multiple Vitamin] 1 each PO DAILY 08/11/18 [History] Omeprazole [PriLOSEC] 40 mg PO DAILY #30 cap 08/14/18 [Rx] Atorvastatin Calcium [Lipitor] 80 mg PO HS 08/18/18 [History] Cetirizine HCl [24Hour Allergy] 10 mg PO DAILY 08/18/18 [History] Allopurinol [Zyloprim] 300 mg PO DAILY #0 08/23/18 [Rx] Torsemide [Demadex] 80 mg PO BID #240 tablet 08/23/18 [Rx] Aspirin [Adult Aspirin] 81 mg PO DAILY 08/30/18 [History] Amoxicillin/Clavulanate [Augmentin] 500 mg PO BIDWM #8 tablet 09/01/18 [Rx] Furosemide [Lasix] 40 mg PO BID #60 tablet 09/01/18 [Rx] Lactulose 20 gm PO TID #120 udc 09/01/18 [Rx] Rifaximin [Xifaxan] 550 mg PO BID #60 tablet 09/01/18 [Rx] Spironolactone [Aldactone] 50 mg PO DAILY #30 tablet 09/01/18 [Rx] Allergy/AdvReac Type Severity Reaction Status Date / Time No Known Allergies Allergy Verified 09/05/18 01:46 All Systems PM: A 10-system review of systems was performed and is negative for pertinent findings except as documented above in the HPI. - Constitutional Constitutional: fatigue, weight gain, no chills, no fever(s) - EENT Eyes: no blurry vision, no change in vision Ears: no tinnitus Nose, mouth and throat: no bleeding gums, no epistaxis - Cardiovascular Cardiovascular ROS IM: dyspnea, dyspnea on exertion, orthopnea, paroxysmal nocturnal dyspnea, no chest pain - Respiratory Respiratory: dyspnea, dyspnea on exertion, no cough, no hemoptysis, no chest congestion, no excessive phlegm production, no change in phlegm color - Gastrointestinal Gastrointestinal: abdominal pain, diarrhea, no nausea, no vomiting - Genitourinary Genitourinary ROS male: difficulty urinating, hematuria - Musculoskeletal Musculoskeletal ROS IM: back pain, no numbness, no tingling - Integumentary Integumentary IM: no new lesions, no unusual bruising - Neurological Neurological ROS: weakness, no numbness, no tingling - Psychiatric Psychiatric: anxiety, depression, no confusion - Endocrine Endocrine IM: no fatigue - Hematologic/Lymphatic Hematologic/Lymphatic: easy bleeding, no easy bruising - Constitutional Vitals: Temp Pulse Resp BP Pulse Ox 97.8 F 70 24 117/64 94 09/05/18 01:50 09/05/18 02:14 09/05/18 02:14 09/05/18 02:14 09/05/18 02:14 General appearance: Present: cooperative, A&O X 3, morbidly obese Exam: general - aox3, morbidly obese male laying in bed in mild distress heent - ncat, MMM, no scleral icterus mouth- adentulous neck - no jvd, trachea midline cardio- rrr,s1s2,cta lungs - decreased breath sounds, (+) wheezes scattered, able to speak in full sentences without respiratory distress abd - mild TTP in all quadrants, no rebound or guarding, no peritoneal signs, obese extremities - chronic venous stasis changes bilateral LE, pitting edema 3+ up to the knees skin - chronic venous stasis on the LE otherwise intact/warm/dry psych- anxious appearing neuro- no FND, follows command, sensation intact Internal Med - H&P Results - Labs CBC & Chem 7: 09/05/18 02:26 09/05/18 02:26 Labs: Short CBC 09/05/18 Range/Units 02:26 WBC 5.7 (4.3-11.1) K/mcL Hgb 7.7 L D (12.9-16.9) g/dL Hct 25.4 L (37.5-50.1) % Plt Count 132 L (140-400) K/mcL Neutrophils # 4.1 (1.6-8.9) K/mcL BMP 09/05/18 02:26 Sodium 132 L Potassium 4.2 Chloride 98 Carbon Dioxide 21 L BUN 95 H Creatinine 5.73 H Glucose 167 H Calcium 8.3 L Cardiac Enzymes 09/05/18 Range/Units 02:26 Troponin I 0.06 H* (< 0.04) ng/mL - Impressions ITS Impressions Chest X-Ray 09/05/18 02:02 IMPRESSION: Stable pulmonary edema and right basilar pleuroparenchymal disease. D/ / Mata Rogers MD / Mata Rogers MD Interpreting Provider: Mata Rogers MD - Assessment and Plan (1) CHF (congestive heart failure) Current Visit: No Status: Acute Assessment and plan: Acute on chronic CHF exacerbation; 3+ pitting edema up to the knees bilaterally, increasing orthopnea/SOB - weight on admission 124kg, unsure of dry weight XR chest from ER showed stable pulmonary edema, right basilar pleuroparenchymal disease ECHO from previous visit - LVEF 35%. - Severely dilated left ventricle, global left ventricular systolic dysf unction. - atypical septal motion consistent with paced rhythm. - mild tricuspid regurgitation, mild-moderate pulmonary hypertension. Troponin 0.06, likely related to renal disease BNP 487 Plan: - nephrology consulted, await recommendations regarding diuresis - strict I&O - daily weight - albumin 25% 125grams to be given over a 24hr period - fluid restriction diet - FEN: cardiac/ada - DVT prophylaxis: scd, eliquis held - dispo: nephrology and acute care sx recommendations PTOT consulted Qualifiers: Heart failure type: systolic Heart failure chronicity: acute on chronic Qualified Code(s): I50.23 - Acute on chronic systolic (congestive) heart failure (2) Acute kidney injury superimposed on CKD Current Visit: Yes Status: Acute Assessment and plan: Pt with hx of CKD comes to [facility] with creatinine at 5.73, baseline around 2.2-2.3 - was supposed to follow up with Dr Glass as an outpatient next Thursday09/10/18 - recently discharged 09/01/18 and was sent home with PO ariel - says he hasn't peed since leaving the hospital - catheterization showed blood return Retroperitoneal US from 08/12/18 - no evidence of obstructive uropathy. - subtle scattered echogenicities, bilaterally, are favored to represent vascular calcifications seen at the petty on the prior exam, as opposed to nono bstructing nephrolithiasis. - A simple cyst is noted on the right On last admission, nephrology suspected pt to have hepatorenal syndrome; no fluid responsive test was performed Plan: - nephrology consulted - holding nephrotoxic agents and diuretics including lasix, demadex and spironolactone - holding allopurinol - strict I&O - renally dose medications if indicated - continue to monitor renal function - albumin 25% ordered x 125g over 24 hr period - urine studies pending (3) Anemia Current Visit: Yes Status: Acute Assessment and plan: On last admission pt had discharge hemoglobin of 9.3, this morning it is 7.7 - reports rectal bleeding and on catheterization, there is blood return from urethera Pt did have colonoscopy and EGD on 08/13/18 - colonoscopy showed nonbleeding internal hemorroids, a nonbleeding polyp and tortuous colon - EGD showed hypertensive gastropathy, no esophageal lesions Plan: - repeat hemoglobin at 10:00 pending - FOBT pending - holding eliquis - holding aspirin - acute care surgery consulted Qualifiers: Anemia type: unspecified type Qualified Code(s): D64.9 - Anemia, unspecified (4) T2DM (type 2 diabetes mellitus) Current Visit: No Status: Chronic Assessment and plan: Known T2DM. Hold home rx. LDSS. ADA/cardiac diet. Accuchecks. Qualifiers: Diabetes mellitus long-term insulin use: without intermodal truck driver use Diabetes mellitus complication status: with hyperglycemia Qualified Code(s): E11.65 - Type 2 diabetes mellitus with hyperglycemia (5) Obesity Current Visit: No Status: Chronic Assessment and plan: BMI 40.2, counseled. Qualifiers: Obesity type: due to excess calories Obesity classification: adult class 3 (BMI >= 40) Serious obesity comorbidity presence: with serious comorbidity Body mass index: BMI 40.0-44.9 Qualified Code(s): E66.01 - Morbid (severe) obesity due to excess calories; Z68.41 - Body mass index (BMI) 40.0-44.9, adult (6) CAD (coronary artery disease) Current Visit: No Status: Chronic Assessment and plan: Chronic. Continue home rx, hold aspirin. Qualifiers: Coronary Disease-Associated Artery/Lesion type: [place] artery [place] vs. transplanted heart: [place] heart Associated angina: with stable angina Qualified Code(s): I25.118 - Atherosclerotic heart disease of [place] coronary artery with other forms of angina pectoris (7) Peripheral neuropathy Current Visit: No Status: Chronic Assessment and plan: con't gabapentin. Qualifiers: Peripheral neuropathy type: polyneuropathy, unspecified Qualified Code(s): G62.9 - Polyneuropathy, unspecified (8) Elevated troponin Current Visit: Yes Status: Acute Assessment and plan: Troponin 0.06 in the setting of CKD. Will trend x3. Denies active chest pain. (9) Cirrhosis Current Visit: Yes Status: Acute Assessment and plan: Noted on CT scan of the abdomen on previous admission 08/18/2018. GI was consulted and did complete cirrhosis workup, which was negative. EGD on 08/16/18 showed portal hypertensive gastropathy. No lesions in esophagus. On lactulose and rifamixin, con't for a total of 3 BM per day. Qualifiers: Hepatic cirrhosis type: unspecified hepatic cirrhosis Ascites presence: without ascites Qualified Code(s): K74.60 - Unspecified cirrhosis of liver (10) Hypothyroidism Current Visit: No Status: Chronic Assessment and plan: con't synthroid, chronic. Qualifiers: Hypothyroidism type: acquired Qualified Code(s): E03.9 - Hypothyroidism, unspecified (11) Atrial fibrillation Current Visit: No Status: Chronic Assessment and plan: On amiodarone, mexelitine, metoprolol. Will hold eliquis due to drop in hemoglobin with bleeding. Qualifiers: Atrial fibrillation type: unspecified Qualified Code(s): I48.91 - Unspecified atrial fibrillation (12) GERD (gastroesophageal reflux disease) Current Visit: No Status: Chronic Assessment and plan: on prilosec, con't home rx. chronic. Qualifiers: Esophagitis presence: esophagitis presence not specified Qualified Code(s): K21.9 - Gastro-esophageal reflux disease without esophagitis (13) Thrombocytopenia Current Visit: No Status: Chronic Assessment and plan: Likely secondary to cirrhosis. Continue to follow. (14) DVT prophylaxis Current Visit: No Status: Acute Assessment and plan: scd, hold eliquis (15) Obstructive sleep apnea Current Visit: No Status: Chronic Assessment and plan: chronic. wears CPAP at night. - Time Spent With Patient Total time spent is greater than 50% in coordination of care (as documented) at patient's floor/unit and/or counseling patient: 25 - 35 minutes <Zackary Masterson - Last Filed: 09/05/18 06:03> Date of Encounter: 09/05/18 Internal Medicine - H&P: HPI History of present illness: Mr. Purcell is a 63 year old male All Systems PM: A 10-system review of systems was performed and is negative for pertinent findings except as documented above in the HPI. - Constitutional Vitals: Temp Pulse Resp BP Pulse Ox 97.5 F L 71 16 119/60 96 09/05/18 05:15 09/05/18 05:15 09/05/18 05:15 09/05/18 05:15 09/05/18 05:15 Internal Med - H&P Results - Labs CBC & Chem 7: 09/05/18 02:26 09/05/18 02:26 Labs: Short CBC 09/05/18 Range/Units 02:26 WBC 5.7 (4.3-11.1) K/mcL Hgb 7.7 L D (12.9-16.9) g/dL Hct 25.4 L (37.5-50.1) % Plt Count 132 L (140-400) K/mcL Neutrophils # 4.1 (1.6-8.9) K/mcL BMP 09/05/18 02:26 Sodium 132 L Potassium 4.2 Chloride 98 Carbon Dioxide 21 L BUN 95 H Creatinine 5.73 H Glucose 167 H Calcium 8.3 L Cardiac Enzymes 09/05/18 Range/Units 02:26 Troponin I 0.06 H* (< 0.04) ng/mL - Impressions ITS Impressions Chest X-Ray 09/05/18 02:02 IMPRESSION: Stable pulmonary edema and right basilar pleuroparenchymal disease. D/ / Mata Rogers MD / Mata Rogers MD Interpreting Provider: Mata Rogers MD - Time Spent With Patient Total time spent is greater than 50% in coordination of care (as documented) at patient's floor/unit and/or counseling patient: - Attending Attestation I saw and evaluated the patient. I reviewed the residents note, performed my own physical examination and agree with findings and plan as documented in the residents note. Patient seen and examined on 09/05/18. Patient presented with difficulty urinating. Found to have fluid overload, as well as new anemia. Patient has been having rectal bleeding, which he states is related to hemorrhoids. Recent colonoscopy and EGD last month did not reveal a bleeding source. Will have acute care surgery consulted, possible repeat colonoscopy. Patient also has worsening renal function as well in the setting of fluid overload. He has required temporary dialysis in the past, we are consulting nephrology in the AM. We will also continue to trend troponins, patient denies chest pain. Repeat hemoglobin in the morning, type and screened as well.
--- NOTE | 2018-09-05 03:50 | Emergency Department Note ---
Disposition Clinical Impression: Acute on chronic systolic CHF (congestive heart failure), NYHA class 3, Acute kidney injury superimposed on CKD, Elevated troponin Anemia Qualifiers: Anemia type: unspecified type Qualified Code(s): D64.9 - Anemia, unspecified Disposition: Admitted As Inpatient Condition: Fair Referrals: Trevor Horowitz MD [Primary Care Provider] - General Adult HPI - General Chief complaint: ED Urogenital-Male Stated complaint: Urinary Retention/sob/ble & abd edema Time Seen by Provider: 09/05/18 01:34 Source: patient Mode of arrival: ambulatory Limitations: no limitations Nursing Notes Reviewed: Yes Vital Signs Reviewed: Yes - History of Present Illness Pain Scale: 0 - Related Data Home Medications Medication Instructions Recorded Confirmed Amiodarone [Cordarone] 200 mg PO DAILY 08/11/18 09/05/18 Apixaban [Eliquis] 2.5 mg PO BID 08/11/18 09/05/18 Ascorbate Calcium [Vitamin C] 500 mg PO DAILY 08/11/18 09/05/18 Cholecalciferol (Vitamin D3) 3,000 unit PO DAILY 08/11/18 09/05/18 [Children's Vitamin D3] Cyanocobalamin (Vitamin B-12) 1,000 mcg PO DAILY 08/11/18 09/05/18 [Vitamin B12] Ferrous Sulfate [Iron] 325 mg PO DAILY 08/11/18 09/05/18 Gabapentin [Neurontin] 300 mg PO TID 08/11/18 09/05/18 Glimepiride [Amaryl] 1 mg PO DAILY PRN 08/11/18 09/05/18 Isosorbide MONOnitrate (24 HR) 30 mg PO QPM 08/11/18 09/05/18 [Imdur] L.acidoph,Paracasei, B.lactis 1 cap PO BID 08/11/18 09/05/18 [Probiotic] Levothyroxine [Synthroid] 112 mcg PO 0630 08/11/18 09/05/18 Metoprolol Succinate [Toprol Xl] 25 mg PO DAILY 08/11/18 09/05/18 Mexiletine [Mexitil] 150 mg PO Q8HR 08/11/18 09/05/18 Multivitamin [Daily Multiple 1 each PO DAILY 08/11/18 09/05/18 Vitamin] Atorvastatin Calcium [Lipitor] 80 mg PO HS 08/18/18 09/05/18 Cetirizine HCl [24Hour Allergy] 10 mg PO DAILY 08/18/18 09/05/18 Aspirin [Adult Aspirin] 81 mg PO DAILY 08/30/18 09/05/18 Previous Rx's Medication Instructions Recorded Omeprazole [PriLOSEC] 40 mg PO DAILY #30 cap 08/14/18 Allopurinol [Zyloprim] 300 mg PO DAILY #0 08/23/18 Torsemide [Demadex] 80 mg PO BID #240 tablet 08/23/18 Amoxicillin/Clavulanate [Augmentin] 500 mg PO BIDWM #8 tablet 09/01/18 Furosemide [Lasix] 40 mg PO BID #60 tablet 09/01/18 Lactulose 20 gm PO TID #120 udc 09/01/18 Rifaximin [Xifaxan] 550 mg PO BID #60 tablet 09/01/18 Spironolactone [Aldactone] 50 mg PO DAILY #30 tablet 09/01/18 Allergies Allergy/AdvReac Type Severity Reaction Status Date / Time No Known Allergies Allergy Verified 09/05/18 01:46 Constitutional: Denies: fever, chills, weakness Cardiovascular: Reports: dyspnea on exertion, orthopnea, edema. Denies: chest pain, palpitations, syncope Respiratory: Reports: dyspnea. Denies: cough, wheezes Gastrointestinal: Denies: abdominal pain, nausea, vomiting, diarrhea Genitourinary: Reports: other (Decreased urination). Denies: dysuria, hematuria Musculoskeletal: Denies: back pain, neck pain Integumentary: Denies: rash Neurological: Denies: headache Endocrine: Reports: fatigue Past Medical History - Past Medical History Medical history: Reports: CHF, COPD, diabetes, hyperlipidemia, hypertension, renal disease, thyroid disease Psychiatric history: Reports: no psych history - Social History Smoking Status: Former smoker Smokeless Tobacco Status: No Alcohol use: Reports: none Drug use: Reports: none Physical Exam - General Limitations: no limitations General appearance: alert, in no apparent distress Course Vital Signs Temperature 97.8 F 09/05/18 01:49 Pulse Rate 70 09/05/18 01:49 Respiratory Rate 24 09/05/18 01:49 Blood Pressure 120/58 09/05/18 01:49 O2 Sat by Pulse Oximetry 95 09/05/18 01:49 Temperature 97.8 F 09/05/18 01:50 Pulse Rate 70 09/05/18 02:14 Respiratory Rate 24 09/05/18 02:14 Blood Pressure 117/64 09/05/18 02:14 O2 Sat by Pulse Oximetry 94 09/05/18 02:14 Oxygen Delivery Oxygen Delivery Room Air Medical Decision Making - Medical Records Medical records reviewed: Yes I reviewed the patient's medical records. - Lab Data Lab results reviewed: Yes I reviewed the patient's lab results. Result diagrams: 09/05/18 02:26 09/05/18 02:26 Lab Results 09/05/18 09/05/18 09/05/18 Range/Units 02:26 02:26 02:26 WBC 5.7 (4.3-11.1) K/mcL RBC 2.67 L (4.19-5.50) M/mcL Hgb 7.7 L D (12.9-16.9) g/dL Hct 25.4 L (37.5-50.1) % MCV 95.1 (83.0-100.0) fL MCH 28.8 (28.0-33.3) pg MCHC 30.3 L (31.6-35.5) g/dL RDW 20.7 H (11.5-14.5) % Plt Count 132 L (140-400) K/mcL MPV 10.5 (9.4-12.4) fL Immature Gran % 0.3 (0-4) % Seg Neutrophils % 71.9 % Lymphocytes % 12.6 % Monocytes % 11.2 % Eosinophils % 3.5 % Basophils % 0.5 % Neutrophils # 4.1 (1.6-8.9) K/mcL Lymphocytes # 0.7 (0.6-4.6) K/mcL Monocytes # 0.6 (0.0-1.3) K/mcL Eosinophils # 0.2 (0.0-0.6) K/mcL Basophils # 0.0 (0.0-0.2) K/mcL Sodium 132 L (136-145) mEq/L Potassium 4.2 (3.5-5.1) mEq/L Chloride 98 (98-107) mEq/L Carbon Dioxide 21 L (23-29) mEq/L BUN 95 H (8-23) mg/dL Creatinine 5.73 H (0.70-1.30) mg/dL Est GFR ( Amer) 12 L (> 60) Est GFR (Non-Af Amer) 10 L (> 60) BUN/Creatinine Ratio 17 (6-26) Glucose 167 H (70-105) mg/dL Calculated Osmolality 307 H (280-300) Calcium 8.3 L (8.6-10.3) mg/dL Troponin I 0.06 H* (< 0.04) ng/mL B-Natriuretic Peptide 487 H (Less than 100) pg/mL - Radiology Data Radiology results reviewed: Yes I reviewed the patient's radiology results. Chest X-Ray 09/05/18 02:02 IMPRESSION: Stable pulmonary edema and right basilar pleuroparenchymal disease. D/ / Mata Rogers MD / Mata Rogers MD Interpreting Provider: Mata Rogers MD - EKG Data EKG #1 EKG attestation: Yes I reviewed and interpreted this EKG. EKG results narrative: EKG shows an electronic ventricular pacemaker with a ventricular rate is 70. No further interpretation available due to paced rhythm. Critical Care Time Critical Care Time: No Attestation Statement - Attestation Attestation: I, Thierno Trevino MD, personally evaluated this patient and discussed their management with the resident physician. I reviewed the resident's note and agree with the documented findings, medical decision making, and plan of care. 63-year-old male presents to the emergency department with a complaint of increased swelling of his extremities as well as weight gain and increased shortness of breath. He was just released from the hospital about 4 days ago for the same symptoms. He has worsening chronic kidney disease. He states over the last 3 days he has only been able to urinate about 100 mL per day. He denies any chest pain. No cough or fever. Some mild discomfort in his bladder. On examination patient is a well-developed obese male in no acute distress. He is alert and oriented 3. There is no cyanosis or diaphoresis. Breath sounds are decreased bilaterally with a few bibasilar rales. No wheezes. Heart regular rate and rhythm. Abdomen soft with mild mid suprapubic tenderness. No guarding or rebound tenderness. 3+ pitting edema of lower extremities. EKG shows an electronic ventricular pacemaker with a ventricular rate is 70. No further interpretation available due to paced rhythm. Chest x-ray shows stable cardiomegaly and stable pulmonary edema. Labs reviewed. Creatinine has increased from around 2.54 days ago to greater than 5 tonight. The hospitalist, Dr. Masterson, was consulted and accepted admission of the patient.
[2018-09-05] MEDS ORDERED: Naloxone 0.4 MG/ML INJ IVP PRN (03:51)
[2018-09-05] MEDS ORDERED: D5% in Water 1,000 ML IVC PRN (03:54)
[2018-09-05] MEDS ORDERED: *HR* Dextrose 50 % in Water (Syg) 50 ML SYRINGE IVP PRN (03:54)
[2018-09-05] MEDS ORDERED: Dextrose Gel 15 GM/37.5 ML TUBE PO PRN ×2 (03:54)
[2018-09-05 04:24] LABS: Magnesium 2.9 mg/dL (1.6-2.6)
[2018-09-05] MEDS ORDERED: Albumin 25% 25gram/100mL 25 GM/100 ML IV.SOLN IVPB SCH (05:15)
[2018-09-05] MEDS: Insulin LISPRO 300 UNITS/3 ML VIAL SQ SCH ×5 (06:14→22:36)
[2018-09-05] MEDS: Albumin 25% 25gram/100mL 25 GM/100 ML IV.SOLN IVPB SCH ×3 (06:23→18:11)
[2018-09-05 07:25] LABS: Hematocrit 25.1 % (37.5-50.1); Hemoglobin 7.7 g/dL (12.9-16.9); Mean Corpuscular HGB Conc 30.7 g/dL (31.6-35.5); Mean Corpuscular Hemoglobin 29.2 pg (28.0-33.3); Mean Corpuscular Volume 95.1 fL (83.0-100.0); Mean Platelet Volume 10.8 fL (9.4-12.4); Platelet Count 149 K/mcL (140-400); Red Blood Count 2.64 M/mcL (4.19-5.50); Red Cell Distribution Width 20.5 % (11.5-14.5)
[2018-09-05 07:38] LABS: Calcium 8.7 mg/dL (8.6-10.3); Potassium 4.2 mEq/L (3.5-5.1)
[2018-09-05 07:41] LABS: INR 1.4; Prothrombin Time 16.3 Seconds (9.4-12.1)
[2018-09-05 07:42] LABS: Troponin I 0.06 ng/mL (< 0.04)
--- NOTE | 2018-09-05 08:59 | Event Note ---
<Ha Huerta - Last Filed: 09/05/18 18:29> Date of Encounter: 09/05/18 John Purcell is a 63 M w hx HFrEF 35% s/p ICD, CAD, A-Fib on AC, HTN, DM2, CKD3a, COPD, Cirrhosis, hypothyroidism, who presented at time of admission with BRBPR and acutely lower Hb concerning for hemorrhoidal bleeding in this CHF/cirrhotic with portal HTN. Transfuse 1u prbc, hold AC, and monitor. Consult GI for eval and management including consideration of paracentesis or less likely TIPS (as seems more cardiac than liver) if pt might benefit given ineffectiveness of diuresis. In this regard, however, pt has significant CRISTY w serum Cr almost 6 and minimal reported UOP for last few days, and thus have consulted Neph for consideration of SUPERVISOR ELECTROLYTIC TINNING which would also alleviate some of the intravascular pressure currently driving hemorrhoidal bleeding. <Linda Miller - Last Filed: 09/05/18 23:42> Date of Encounter: 09/05/18 Time of Encounter: 08:54 Mr. Purcell is a 63 M with h/o CHF, Afib on Eliquis, COPD, DM, CKD who presents with decreased urine output, dyspnea and swelling while on lasix, and BRBPR. BNP 487, SCr 5.73, Hgb 7.7, Troponin 0.06, and CXR showing stable pulmonary edema. Symptoms and workup consistent with CHF exacerbation, CRISTY, and GI bleed. S: Seen and examined at bedside, patient's is present. Patient c/o abdominal discomfort and swelling. Doesn't feel short of breath at this time, feels he is breathing ok. Denies fevers, chest pain, palpitations, nausea. O: General: No acute distress, resting comfortably in bed HEENT: head normocephalic/atraumatic, EOMI, PERRL, sclera anicteric, moist mucus membranes, Neck: Supple, no lymphadenopathy Cardio: RRR, no murmurs, +S1/S2 Pulm: CTAB, no wheezing, rhonchi, rales. Normal respiratory effort. Abdomen: soft, nontender, BS+, no rebound, rigidity, guarding, distention Extremities: No LE edema, no calf tenderness, no cyanosis, clubbing, splinter hemorrhages Back: normal appearance on inspection, Nontender throughout Neuro: AAOx3, no focal deficit, no speech deficit, mentation intact, normal gait, CN II-XII grossly intact, moves extremities spontaneously MSK: Strength 5/5 throughout, no visible deformities Skin: clean, dry, intact, no visible rashes Psych: Appropriate mood and affect. Answers questions appropriately. Cooperative with exam A/P: Acute exacerbation of CHF: BNP 487. Likely secondary to acute blood loss in setting of GI bleed. Most recent echo with LVEF 35%. Receiving albumin infusion. Strict I/O's monitoring. Recommendations for diuresis per nephrology. Anemia: Acute on chronic. Acute anemia d/t blood loss in setting of anemia of chronic disease. Continue iron supplementation. Acute surgery consulted, recommendations appreciated. Holding ASA and AC. - Trend H/H - 2 units pRBCs ordered, will transfuse 1 unit and reassess Elevated troponin: Adynamic. Likely d/t increased oxygen demand in setting of acute blood loss d/t GIB CRISTY on CKD stage III: Sees Dr. Glass outpatient. Nephrology consulted, recommendations appreciated. Will follow renal protective strategy, Strict I/O monitoring. GIB: EGD and colonoscopy July 2018 showed no esophageal lesions, portalhypertensive gastropathy, non-bleeding internal hemorrhoids, non-bleeding polyp Afib: Continuing home meds amiodarone, mexelitine, metoprolol. Holding AC. DM: Sliding scale insulin Cirrhosis: Rifaximin and lactulose Prophylaxis: EPCDs Diet: Cardiac, ADA
[2018-09-05] MEDS: Gabapentin 300 MG CAPSULE PO SCH ×3 (09:54→22:36)
[2018-09-05] MEDS: Loratadine 10 MG TABLET PO SCH (09:54)
[2018-09-05] MEDS: *HR* Amiodarone 200 MG TABLET PO SCH (09:54)
[2018-09-05] MEDS: Metoprolol XL (24 HR) Succ 25 MG TAB.ER.24H PO SCH (09:54)
--- NOTE | 2018-09-05 10:31 | AcuteCare Surgery Consult Note ---
<ZhannaaddisonCyndi N - Last Filed: 09/05/18 13:53> Date of Encounter: 09/05/18 Time of Encounter: 10:22 Assessment and Plan (1) Bright red blood per rectum Current Visit: Yes Status: Acute -63-year-old male with history of A. fib on Eliquis and multiple episodes of GI bleeding over the past 6 months -Previous colonoscopies have identified nonbleeding hemorrhoids -Rectal examination reveals a grade II-III internal hemorrhoid, suspect this is the source of patients hematochezia -Do not recommend repeat EGD/colonoscopy as patient has been scoped twice this year with nonspecific findings -Rectal examination revealed an internal hemorrhoid which may likely be source of his bleeding -Recommend moist wipes after bowel movements and applying moist wet rags on the hemorrhoid to keep cool -Do not recommend a hemorrhoidectomy until after CRISTY and CHF have been treated -Surgery will follow from a distance, please reach out with any questions History of Present Illness Consult date: 09/05/18 History of present illness: Patient is a 63-year-old male with a pertinent past medical history of chronic kidney disease, congestive heart failure, GERD, A. fib on Eliquis and prior his tory of GI bleeding. Patient was recently discharged from the hospital on 09/01/2018 after treatment for CHF exacerbation. Patient was discharged on Lasix but reports poor urinary output and returned with fluid overload and CRISTY on CKD. On presentation patient also complained of Bright Red Blood per Rectum which had been ongoing since he was discharged on 09/01/2018 which prompted the acute care surgery consultation. Patient reports bright red blood per rectum without abdominal pain. He does report diarrhea but is on lactulose. Denies any constipation, nausea, vomiting, or hematemesis. His labs show anemia with a hemoglobin of 7.7, baseline around 9. He is hemodynamically stable. Patient states that approximately 6 months ago he underwent EGD and colonoscopy for the same complaint at [facility] but no etiology for his bleeding was identified at that time. He was admitted to [facility] approximately one month ago in July 2018 for CHF exacerbation and was noted to be anemic at that time and also had be BRBPR. Colonoscopy at that time was significant for a nonbleeding internal hemorrhoid grade 2 and an EGD showed portal hypertensive gastropathy and gastritis. He is currently resting comfortably in bed, there is bright red blood in and around the toilet. On rectal exam there is some dried blood noted at the anus, but no bleeding hemorrhoids appreciated. Past Med Surg Social Fam HX - Past Medical History Medical history: CHF, COPD, diabetes, hyperlipidemia, hypertension, renal disease, thyroid disease Additional medical history: gout, type 2 DM Psychiatric history: no psych history - Past Surgical History Additional surgical history: R knee replacement,CTR bilateral hands, Ventricular septal repair. - Social History Smoking Status: Former smoker Smokeless Tobacco Status: No Alcohol use: none Drug use: none - Family History Mother Living Status: Hx Family Cardiac Disorders: Yes (mother/father heart attack) Hx Family Respiratory Disorders: No Hx Family Cancer: No Hx Family GI Disorders: No Hx Family Endocrine Disorder: Yes Hx Family Neuromuscular Disorders: No Hx Family Neurologic Disorders: No Hx Family HEENT Disorders: No Hx Family Autoimmune Disorders: No Father Adopted: No Race: Living Status: Hx Family Cardiac Disorders: Yes Hx Family Cancer: Yes Medications and Allergies Amiodarone [Cordarone] 200 mg PO DAILY 08/11/18 [History] Apixaban [Eliquis] 2.5 mg PO BID 08/11/18 [History] Ascorbate Calcium [Vitamin C] 500 mg PO DAILY 08/11/18 [History] Cholecalciferol (Vitamin D3) [Children's Vitamin D3] 3,000 unit PO DAILY 08/11/18 [History] Cyanocobalamin (Vitamin B-12) [Vitamin B12] 1,000 mcg PO DAILY 08/11/18 [History] Ferrous Sulfate [Iron] 325 mg PO DAILY 08/11/18 [History] Gabapentin [Neurontin] 300 mg PO TID 08/11/18 [History] Glimepiride [Amaryl] 1 mg PO DAILY PRN 08/11/18 [History] Isosorbide MONOnitrate (24 HR) [Imdur] 30 mg PO QPM 08/11/18 [History] L.acidoph,Paracasei, B.lactis [Probiotic] 1 cap PO BID 08/11/18 [History] Levothyroxine [Synthroid] 112 mcg PO 0630 08/11/18 [History] Metoprolol Succinate [Toprol Xl] 25 mg PO DAILY 08/11/18 [History] Mexiletine [Mexitil] 150 mg PO Q8HR 08/11/18 [History] Multivitamin [Daily Multiple Vitamin] 1 each PO DAILY 08/11/18 [History] Omeprazole [PriLOSEC] 40 mg PO DAILY #30 cap 08/14/18 [Rx] Atorvastatin Calcium [Lipitor] 80 mg PO HS 08/18/18 [History] Cetirizine HCl [24Hour Allergy] 10 mg PO DAILY 08/18/18 [History] Allopurinol [Zyloprim] 300 mg PO DAILY #0 08/23/18 [Rx] Torsemide [Demadex] 80 mg PO BID #240 tablet 08/23/18 [Rx] Aspirin [Adult Aspirin] 81 mg PO DAILY 08/30/18 [History] Amoxicillin/Clavulanate [Augmentin] 500 mg PO BIDWM #8 tablet 09/01/18 [Rx] Furosemide [Lasix] 40 mg PO BID #60 tablet 09/01/18 [Rx] Lactulose 20 gm PO TID #120 udc 09/01/18 [Rx] Rifaximin [Xifaxan] 550 mg PO BID #60 tablet 09/01/18 [Rx] Spironolactone [Aldactone] 50 mg PO DAILY #30 tablet 09/01/18 [Rx] Allergy/AdvReac Type Severity Reaction Status Date / Time No Known Allergies Allergy Verified 09/05/18 01:46 Review of Systems All systems PM: The remainder of the systems were reviewed and are negative - Constitutional no chills, no fever(s) - Cardiovascular no chest pain - Respiratory no dyspnea - Gastrointestinal diarrhea, hematochezia, no abdominal pain, no melena, no nausea, no vomiting - Genitourinary hematuria - Hematologic/Lymphatic easy bleeding General Surgery Exam Initial Vital Signs Temp Pulse Resp BP Pulse Ox 97.8 F 70 24 120/58 95 09/05/18 01:49 09/05/18 01:49 09/05/18 01:49 09/05/18 01:49 09/05/18 01:49 - General physical appearance well developed, well nourished - Eyes PERRL, normal ocular movement - ENT normal pinna, normal nares - Neck trachea midline, no venous distension - Respiratory normal expansion, normal respiratory effort - Cardiovascular Cardiovascular exam: Present: RRR - Abdomen Abdomen general surgery: Present: bowel sounds present, soft, non tender - Rectum Rectum: Present: other (Noted dried blood at the anus. No external hemorrhoids noted.) - Integumentary Integumentary general surgery: Present: warm and dry - Musculoskeletal Present: normal posture - Psychiatric Psychiatric general surgery: Present: A&Ox3 Exam Initial Vital Signs Temp Pulse Resp BP Pulse Ox 97.8 F 70 24 120/58 95 09/05/18 01:49 09/05/18 01:49 09/05/18 01:49 09/05/18 01:49 09/05/18 01:49 Results - Labs 09/05/18 11:34 09/05/18 06:54 Abnormal lab results RBC 2.64 M/mcL (4.19-5.50) L 09/05/18 06:54 Hgb 7.7 g/dL (12.9-16.9) L 09/05/18 06:54 Hct 25.1 % (37.5-50.1) L 09/05/18 06:54 MCHC 30.7 g/dL (31.6-35.5) L 09/05/18 06:54 RDW 20.5 % (11.5-14.5) H 09/05/18 06:54 Plt Count 132 K/mcL (140-400) L 09/05/18 02:26 PT 16.3 Seconds (9.4-12.1) H 09/05/18 02:26 Sodium 132 mEq/L (136-145) L 09/05/18 06:54 Chloride 95 mEq/L (98-107) L 09/05/18 06:54 Carbon Dioxide 20 mEq/L (23-29) L 09/05/18 06:54 BUN 96 mg/dL (8-23) H 09/05/18 06:54 5.89 mg/dL (0.70-1.30) H 09/05/18 06:54 Est GFR ( Amer) 12 (> 60) L 09/05/18 06:54 Est GFR (Non-Af Amer) 10 (> 60) L 09/05/18 06:54 Glucose 167 mg/dL (70-105) H 09/05/18 02:26 304 (280-300) H 09/05/18 06:54 Calcium 8.3 mg/dL (8.6-10.3) L 09/05/18 02:26 Magnesium 2.9 mg/dL (1.6-2.6) H 09/05/18 02:26 61 mcmol/L (16-53) H 09/05/18 06:54 0.06 ng/mL (< 0.04) H* 09/05/18 06:54 B-Natriuretic Peptide 487 pg/mL (Less than 100) H 09/05/18 02:26 Diabetes panel 09/05/18 09/05/18 Range/Units 02:26 06:54 Sodium 132 L 132 L (136-145) mEq/L Potassium 4.2 4.2 (3.5-5.1) mEq/L Chloride 98 95 L (98-107) mEq/L Carbon Dioxide 21 L 20 L (23-29) mEq/L BUN 95 H 96 H (8-23) mg/dL Creatinine 5.73 H 5.89 H (0.70-1.30) mg/dL Glucose 167 H 100 (70-105) mg/dL Calcium 8.3 L 8.7 (8.6-10.3) mg/dL Calcium panel 09/05/18 09/05/18 Range/Units 02:26 06:54 Calcium 8.3 L 8.7 (8.6-10.3) mg/dL Pituitary panel 09/05/18 09/05/18 Range/Units 02:26 06:54 Sodium 132 L 132 L (136-145) mEq/L Potassium 4.2 4.2 (3.5-5.1) mEq/L Chloride 98 95 L (98-107) mEq/L Carbon Dioxide 21 L 20 L (23-29) mEq/L BUN 95 H 96 H (8-23) mg/dL Creatinine 5.73 H 5.89 H (0.70-1.30) mg/dL Glucose 167 H 100 (70-105) mg/dL Calcium 8.3 L 8.7 (8.6-10.3) mg/dL Adrenal panel 09/05/18 09/05/18 Range/Units 02:26 06:54 Sodium 132 L 132 L (136-145) mEq/L Potassium 4.2 4.2 (3.5-5.1) mEq/L Chloride 98 95 L (98-107) mEq/L Carbon Dioxide 21 L 20 L (23-29) mEq/L BUN 95 H 96 H (8-23) mg/dL Creatinine 5.73 H 5.89 H (0.70-1.30) mg/dL Glucose 167 H 100 (70-105) mg/dL Calcium 8.3 L 8.7 (8.6-10.3) mg/dL All other labs normal. Consult Discharge Plan - Plan Referrals: Trevor Horowitz MD [Primary Care Provider] - <Trey Anne - Last Filed: 09/05/18 18:39> Date of Encounter: 09/05/18 Review of Systems All systems PM: The remainder of the systems were reviewed and are negative General Surgery Exam Initial Vital Signs Temp Pulse Resp BP Pulse Ox 97.8 F 70 24 120/58 95 09/05/18 01:49 09/05/18 01:49 09/05/18 01:49 09/05/18 01:49 09/05/18 01:49 Exam Initial Vital Signs Temp Pulse Resp BP Pulse Ox 97.8 F 70 24 120/58 95 09/05/18 01:49 09/05/18 01:49 09/05/18 01:49 09/05/18 01:49 09/05/18 01:49 Results - Labs 09/05/18 11:34 09/05/18 06:54 Abnormal lab results RBC 2.64 M/mcL (4.19-5.50) L 09/05/18 06:54 Hgb 7.5 g/dL (12.9-16.9) L 09/05/18 11:34 Hct 24.9 % (37.5-50.1) L 09/05/18 11:34 MCHC 30.7 g/dL (31.6-35.5) L 09/05/18 06:54 RDW 20.5 % (11.5-14.5) H 09/05/18 06:54 Plt Count 132 K/mcL (140-400) L 09/05/18 02:26 PT 16.3 Seconds (9.4-12.1) H 09/05/18 02:26 Sodium 132 mEq/L (136-145) L 09/05/18 06:54 Chloride 95 mEq/L (98-107) L 09/05/18 06:54 Carbon Dioxide 20 mEq/L (23-29) L 09/05/18 06:54 BUN 96 mg/dL (8-23) H 09/05/18 06:54 5.89 mg/dL (0.70-1.30) H 09/05/18 06:54 Est GFR ( Amer) 12 (> 60) L 09/05/18 06:54 Est GFR (Non-Af Amer) 10 (> 60) L 09/05/18 06:54 Glucose 167 mg/dL (70-105) H 09/05/18 02:26 POC Glucose 144 mg/dL (70-99) H 09/05/18 16:39 304 (280-300) H 09/05/18 06:54 Calcium 8.3 mg/dL (8.6-10.3) L 09/05/18 02:26 Magnesium 2.9 mg/dL (1.6-2.6) H 09/05/18 02:26 61 mcmol/L (16-53) H 09/05/18 06:54 0.05 ng/mL (< 0.04) H* 09/05/18 11:34 B-Natriuretic Peptide 487 pg/mL (Less than 100) H 09/05/18 02:26 Crossmatch See Detail 09/05/18 06:54 Diabetes panel 09/05/18 09/05/18 Range/Units 02:26 06:54 Sodium 132 L 132 L (136-145) mEq/L Potassium 4.2 4.2 (3.5-5.1) mEq/L Chloride 98 95 L (98-107) mEq/L Carbon Dioxide 21 L 20 L (23-29) mEq/L BUN 95 H 96 H (8-23) mg/dL Creatinine 5.73 H 5.89 H (0.70-1.30) mg/dL Glucose 167 H 100 (70-105) mg/dL Calcium 8.3 L 8.7 (8.6-10.3) mg/dL Calcium panel 09/05/18 09/05/18 Range/Units 02:26 06:54 Calcium 8.3 L 8.7 (8.6-10.3) mg/dL Pituitary panel 09/05/18 09/05/18 Range/Units 02:26 06:54 Sodium 132 L 132 L (136-145) mEq/L Potassium 4.2 4.2 (3.5-5.1) mEq/L Chloride 98 95 L (98-107) mEq/L Carbon Dioxide 21 L 20 L (23-29) mEq/L BUN 95 H 96 H (8-23) mg/dL Creatinine 5.73 H 5.89 H (0.70-1.30) mg/dL Glucose 167 H 100 (70-105) mg/dL Calcium 8.3 L 8.7 (8.6-10.3) mg/dL Adrenal panel 09/05/18 09/05/18 Range/Units 02:26 06:54 Sodium 132 L 132 L (136-145) mEq/L Potassium 4.2 4.2 (3.5-5.1) mEq/L Chloride 98 95 L (98-107) mEq/L Carbon Dioxide 21 L 20 L (23-29) mEq/L BUN 95 H 96 H (8-23) mg/dL Creatinine 5.73 H 5.89 H (0.70-1.30) mg/dL Glucose 167 H 100 (70-105) mg/dL Calcium 8.3 L 8.7 (8.6-10.3) mg/dL All other labs normal. - Attending Attestation I examined this patient and my medical decision-making was reviewed with the Resident Physician. I agree with the documented findings, disposition and treat ment plan as described except to the extent set forth below. I personally reviewed the above assessment and evaluation and agree with the above plan. Patient has had a previous EGD and colonoscopy several weeks ago due to the same type of symptoms. He was discharged proximal to 4 days ago and has been oliguric and on presentation has had significant third spacing with and creatinine that his increased by at least 2.. He has evidence of fluid overload and I think that is contributing to his decreased of hemoglobin is 7.7. He does state that is had blood with bowel movements in the stool and with wiping. I personally reviewed the endoscopy images which showed some diverticulosis and some hemorrhoids with no evidence of blood within the lumen. On physical examination his abdomen is nontender to palpation but perianal examination demonstrates impressive moderate size internal hemorrhoids with some stigmata of bleeding apparent but no active bleeding. I think that his diarrhea is exacerbating the problems related to these moderate size hemorrhoids and we will give recommendations for moist wipes, a moist pack to the perianal tissue and conservative management while he recovers from this acute kidney injury and oliguric state. I do not think a repeat EGD and colonoscopy is warranted. At some point I do think a hemorrhoidectomy will be appropriate. Will follow from a distance, thank you.
[2018-09-05 11:47] LABS: Hematocrit 24.9 % (37.5-50.1); Hemoglobin 7.5 g/dL (12.9-16.9)
[2018-09-05] MEDS: Lactulose Oral Soln 20 GM/30 ML UDC PO SCH ×3 (11:58→22:36)
--- NOTE | 2018-09-05 12:45 | Nephrology Consult Note ---
Date of Encounter: 09/05/18 Time of Encounter: 12:15 Assessment and Plan (1) Acute kidney injury superimposed on CKD Current Visit: Yes Status: Acute Discussed with him the pros vs cons and indications vs risks vs benefits for initiation of STEEL FIXER. He did not have hyperkalemia today (Thursday), so I will plan for initiation of STEEL FIXER tomorrow. I updated his family, who all said that with having so many readdmissions for AKIs, Edema and not responding to diuretics well that they had expected that he'd end upon dialysis again during this admission. Continue to follow a renal protective strategy as able. Thank you for consulting the [facility]; will continue to follow with you. (2) Acute on chronic systolic CHF (congestive heart failure), NYHA class 3 Current Visit: Yes Status: Acute Contributing to his edema as well. He has had episodes of CRS documented previ ously as well (3) Anemia Current Visit: Yes Status: Acute Acute on chronic with goal Hgb of 10-11. Will monitor. He may need EPO and/or IV iron during this admission. Qualifiers: Anemia type: unspecified type Qualified Code(s): D64.9 - Anemia, unspecified (4) Bright red blood per rectum Current Visit: Yes Status: Acute I will defer the GI bleeding workup to his primary team (5) Hyponatremia Current Visit: No Status: Acute Hypervolemic hyponatremia in the setting of CHF and cirrhosis of the liver. All of these are potential etiologies for his hyponatremia. When dialysis is started tomorrow, I will order fluid removal, which should improve his volume status and therefore the hyponatremia. History of Present Illness - Reason for Consult Consult date: 09/05/18 Acute Kidney Injury, Chronic Kidney Disease (with recurrent fluid overload and admissions for AKis) Requesting physician: Ricardo Cortes - Chief Complaint Progressive renal failure with recurrent fluid overload/admissions for AKIs - History of Present Illness The patient is a very pleasant 63-year-old male with a past medical history of congestive heart failure, cirrhosis of the liver on lactulose, as w ell as advanced CKD with several prior AKIs who has presented several times over the last few months with acute kidney injury, CHF exacerbations, and cirrhosis of the liver. Nephrology was consulted because his renal function has now significantly worsened. He has noted blood in his stool and he was also found to be anemic. His family was present at the bedside, and I answered all their questions. The patient and his family so that they were expecting he would need to resume dialysis during this admission. He did not affirm taking [id number] NSAIDs. He said that he has had his diuretics adjusted numerous times over the last several months, but yet his swelling continues to return. He said that he has been taking lactulose. He recently switched to Dr. Glass for his Nephrology care. He denied chest pain, rash, or change in his mental statuc, but he did affirm having abdominal swelling as well as lower extremity swelling Past Med Surg Social Fam HX - Past Medical History Medical history: CHF, COPD, diabetes, hyperlipidemia, hypertension, renal disease, thyroid disease Additional medical history: gout, type 2 DM Psychiatric history: no psych history - Past Surgical History Additional surgical history: R knee replacement,CTR bilateral hands, Ventricular septal repair. - Social History Smoking Status: Former smoker Smokeless Tobacco Status: No Alcohol use: none Drug use: none - Family History Mother Living Status: Hx Family Cardiac Disorders: Yes (mother/father heart attack) Hx Family Respiratory Disorders: No Hx Family Cancer: No Hx Family GI Disorders: No Hx Family Endocrine Disorder: Yes Hx Family Neuromuscular Disorders: No Hx Family Neurologic Disorders: No Hx Family HEENT Disorders: No Hx Family Autoimmune Disorders: No Father Adopted: No Race: Living Status: Hx Family Cardiac Disorders: Yes Hx Family Cancer: Yes Medications and Allergies Amiodarone [Cordarone] 200 mg PO DAILY 08/11/18 [History] Apixaban [Eliquis] 2.5 mg PO BID 08/11/18 [History] Ascorbate Calcium [Vitamin C] 500 mg PO DAILY 08/11/18 [History] Cholecalciferol (Vitamin D3) [Children's Vitamin D3] 3,000 unit PO DAILY 08/11/18 [History] Cyanocobalamin (Vitamin B-12) [Vitamin B12] 1,000 mcg PO DAILY 08/11/18 [History] Ferrous Sulfate [Iron] 325 mg PO DAILY 08/11/18 [History] Gabapentin [Neurontin] 300 mg PO TID 08/11/18 [History] Glimepiride [Amaryl] 1 mg PO DAILY PRN 08/11/18 [History] Isosorbide MONOnitrate (24 HR) [Imdur] 30 mg PO QPM 08/11/18 [History] L.acidoph,Paracasei, B.lactis [Probiotic] 1 cap PO BID 08/11/18 [History] Levothyroxine [Synthroid] 112 mcg PO 0630 08/11/18 [History] Metoprolol Succinate [Toprol Xl] 25 mg PO DAILY 08/11/18 [History] Mexiletine [Mexitil] 150 mg PO Q8HR 08/11/18 [History] Multivitamin [Daily Multiple Vitamin] 1 each PO DAILY 08/11/18 [History] Omeprazole [PriLOSEC] 40 mg PO DAILY #30 cap 08/14/18 [Rx] Atorvastatin Calcium [Lipitor] 80 mg PO HS 08/18/18 [History] Cetirizine HCl [24Hour Allergy] 10 mg PO DAILY 08/18/18 [History] Allopurinol [Zyloprim] 300 mg PO DAILY #0 08/23/18 [Rx] Torsemide [Demadex] 80 mg PO BID #240 tablet 08/23/18 [Rx] Aspirin [Adult Aspirin] 81 mg PO DAILY 08/30/18 [History] Amoxicillin/Clavulanate [Augmentin] 500 mg PO BIDWM #8 tablet 09/01/18 [Rx] Furosemide [Lasix] 40 mg PO BID #60 tablet 09/01/18 [Rx] Lactulose 20 gm PO TID #120 udc 09/01/18 [Rx] Rifaximin [Xifaxan] 550 mg PO BID #60 tablet 09/01/18 [Rx] Spironolactone [Aldactone] 50 mg PO DAILY #30 tablet 09/01/18 [Rx] Allergy/AdvReac Type Severity Reaction Status Date / Time No Known Allergies Allergy Verified 09/05/18 01:46 Review of Systems All Systems: reviewed and no additional remarkable complaints except as stated Exam - Vital Signs Vital signs: Initial Vital Signs Temp Pulse Resp BP Pulse Ox 97.8 F 70 24 120/58 95 09/05/18 01:49 09/05/18 01:49 09/05/18 01:49 09/05/18 01:49 09/05/18 01:49 Vital Signs - Last 8 Hours Temp Pulse Resp BP Pulse Ox 09/05/18 11:13 97.4 F L 83 88/44 91 09/05/18 06:53 97.4 F L 64 108/38 98 09/05/18 05:15 97.5 F L 71 16 119/60 96 09/05/18 05:11 93 Intake and Output 09/04/18 09/05/18 09/05/18 23:59 07:59 15:59 Intake Total 340 / 340 Balance 340 / 340 Intake: IV Fluids 100 / 100 Flexbumin 25 gm In 100 ml @ 60 100 / 100 mls/hr IVPB Q6HR [facility] Rx#: [id number] Oral 240 / 240 Other: Meal Breakfast Percent of Meal Consumed 100% Weight 124.2 kg Blood Glucose* 117 181 Patient Weight 09/05/18 23:59 Weight 124.2 kg - General Appearance General appearance: well-developed, well-nourished, obese, fatigue, frail EENT: ATNC, PERRL, mucous membranes moist Neck: supple (but thick and making it impossible to screen for JVD. He has a right anterior triangle neck scare) Respiratory: wheezing (Clear anteriorly but with faint wheezing on exhalation) Additional Comments: Left anterior superior chest wall device palpable Cardiology: edema, regular rate, regular rhythm, normal S1, normal S2 Gastrointestinal: normoactive bowel sounds, no tenderness, no guarding, obese Integumentary: warm and dry, ecchymotic Neurologic: no focal deficit, asterixis, alert and oriented x3 Musculoskeletal: no deformities, no erythema, no cyanosis Psychiatric: mood/affect appropriate, cooperative Results - Lab Results 09/05/18 19:11 09/05/18 06:54 Most recent lab results 09/05/18 09/05/18 02:26 06:54 Calcium 8.3 L 8.7 Magnesium 2.9 H Consult Discharge Plan - Plan Referrals: Trevor Horowitz MD [Primary Care Provider] -
[2018-09-05] MEDS ORDERED: 0.9 % Sodium Chloride 250 ML ONE (14:07)
[2018-09-05] MEDS: Isosorbide MONOnitrate (24 HR) 30 MG TAB.ER.24H PO SCH (18:09)
[2018-09-05 19:24] LABS: Hematocrit 25.7 % (37.5-50.1)
[2018-09-05 23:21] LABS: Sodium, Urine 49.7 mEq/L
[2018-09-05 23:51] LABS: Protein/Creatinine Ratio,Urine 10.93 mg/mg (0.00-0.20)
[2018-09-06] MEDS: Albumin 25% 25gram/100mL 25 GM/100 ML IV.SOLN IVPB SCH ×2 (00:24→06:21)
[2018-09-06 05:43] LABS: Basophils # 0.1 K/mcL (0.0-0.2); Basophils % 0.6 %; Eosinophils # 0.2 K/mcL (0.0-0.6); Eosinophils % 2.3 %; Hematocrit 24.8 % (37.5-50.1); Hemoglobin 7.7 g/dL (12.9-16.9); Immature Granulocytes % 0.3 % (0-4); Lymphocytes # 0.9 K/mcL (0.6-4.6); Mean Corpuscular Hemoglobin 29.5 pg (28.0-33.3); Mean Platelet Volume 9.8 fL (9.4-12.4); Monocytes # 0.8 K/mcL (0.0-1.3); Monocytes % 10.2 %; Platelet Count 138 K/mcL (140-400); Red Blood Count 2.61 M/mcL (4.19-5.50); Red Cell Distribution Width 19.9 % (11.5-14.5); Segmented Neutrophils % 75.6 %
[2018-09-06 06:01] LABS: Calcium 8.7 mg/dL (8.6-10.3); Potassium 4.7 mEq/L (3.5-5.1)
[2018-09-06 06:07] LABS: % Iron Saturation 9 % (20-55); Iron 24 mcg/dL (65-175); Transferrin 201 mg/dL (203-362)
[2018-09-06 06:21] LABS: Ferritin 83 ng/mL (20-250)
[2018-09-06 06:30] LABS: Hepatitis B Surface Antibody < 3.10 mIU/mL
[2018-09-06 06:42] LABS: Hepatitis B Surface Antigen Nonreactive (Nonreactive)
[2018-09-06] MEDS ORDERED: 0.9 % Sodium Chloride 250 ML IVC PRN (07:37)
[2018-09-06] MEDS ORDERED: 0.9 % Sodium Chloride 1,000 ML PRIME SCH (07:45)
[2018-09-06] MEDS: Insulin LISPRO 300 UNITS/3 ML VIAL SQ SCH ×4 (09:06→22:23)
[2018-09-06] MEDS: *HR* Amiodarone 200 MG TABLET PO SCH (09:06)
[2018-09-06] MEDS: Loratadine 10 MG TABLET PO SCH (09:06)
[2018-09-06] MEDS: Lactulose Oral Soln 20 GM/30 ML UDC PO SCH ×3 (09:07→19:53)
--- NOTE | 2018-09-06 09:19 | Internal Med Progress Note ---
<BradleyHa Janay - Last Filed: 09/06/18 11:27> Hospitalist Progress Note - Encounter Date of Encounter: 09/06/18 Internal Medicine: Result - Labs CBC & Chem 7: 09/06/18 05:19 09/06/18 05:19 Labs: Short CBC 09/05/18 09/05/18 09/06/18 Range/Units 11:34 19:11 05:19 WBC 7.9 (4.3-11.1) K/mcL Hgb 7.5 L 8.0 L 7.7 L (12.9-16.9) g/dL Hct 24.9 L 25.7 L 24.8 L (37.5-50.1) % Plt Count 138 L (140-400) K/mcL Neutrophils # 6.0 (1.6-8.9) K/mcL BMP 09/06/18 05:19 Sodium 131 L Potassium 4.7 Chloride 96 L Carbon Dioxide 19 L BUN 103 H Creatinine 7.15 H Glucose 47 L Calcium 8.7 Cardiac Enzymes 09/05/18 Range/Units 11:34 Troponin I 0.05 H* (< 0.04) ng/mL Liver Function 09/06/18 Range/Units 05:19 Total Bilirubin 1.3 H (0.3-1.0) mg/dL Direct Bilirubin 0.6 H (0.0-0.2) mg/dL AST 40 H (13-39) Units/L ALT 24 (7-52) Units/L Alkaline Phosphatase 112 H (34-104) Units/L Albumin 3.9 (3.5-5.7) g/dL - ABG Interpretation ABG results: PT/INR, D-dimer PT 16.3 Seconds (9.4-12.1) H 09/05/18 02:26 Consult Discharge Plan - Plan Referrals: Trevor Horowitz MD [Primary Care Provider] - - Attending Attestation Patient seen and examined independently, including review of objective data including labs. I agree with plan of care as documented above by the resident with the following comments: Hb unchanged following transfusion reflecting replacement of estimated blood losses yesterday, and today he says no further hemorrhoidal bleeding. Denies SOB or confusion today. Unfortunately he has worsening renal function and marginal UOP overnight, and thus per Neph will plan for IR CVC placement and then initiate HD. <Linda Miller - Last Filed: 09/06/18 19:54> Hospitalist Progress Note - Encounter Date of Encounter: 09/06/18 Time of Encounter: 09:17 - Exam Vitals: Temp Pulse Resp BP Pulse Ox 97.6 F 69 21 130/38 96 09/06/18 07:15 09/06/18 07:15 09/06/18 07:15 09/06/18 07:15 09/06/18 07:15 Exam: eneral: No acute distress, resting comfortably in bed HEENT: head normocephalic/atraumatic, EOMI, PERRL, sclera anicteric, moist mucus membranes, Neck: Supple, no lymphadenopathy Cardio: RRR, no murmurs, +S1/S2 Pulm: CTAB, no wheezing, rhonchi, rales. Normal respiratory effort. Abdomen: soft, nontender, BS+, no rebound, rigidity, guarding, distention Extremities: No LE edema, no calf tenderness, no cyanosis, clubbing, splinter hemorrhages Back: normal appearance on inspection, Nontender throughout Neuro: AAOx3, no focal deficit, no speech deficit, mentation intact, normal gait, CN II-XII grossly intact, moves extremities spontaneously MSK: Strength 5/5 throughout, no visible deformities Skin: clean, dry, intact, no visible rashes Psych: Appropriate mood and affect. Answers questions appropriately. Cooperative with exam - Assessment and Plan (1) Elevated troponin Current Visit: Yes Status: Acute (2) Acute on chronic systolic CHF (congestive heart failure), NYHA class 3 Current Visit: Yes Status: Acute (3) A-fib Current Visit: Yes Status: Chronic (4) Acute kidney injury superimposed on CKD Current Visit: Yes Status: Acute (5) Cirrhosis Current Visit: Yes Status: Chronic (6) Atrial fibrillation Current Visit: Yes Status: Chronic (7) DVT prophylaxis Current Visit: Yes Status: Acute (8) Anemia Current Visit: Yes Status: Acute (9) Hematuria Current Visit: Yes Status: Resolved (10) T2DM (type 2 diabetes mellitus) Current Visit: Yes Status: Chronic (11) Obesity Current Visit: Yes Status: Chronic (12) CAD (coronary artery disease) Current Visit: Yes Status: Chronic (13) Bright red blood per rectum Current Visit: Yes Status: Acute - Summary of Assessment and Plan Summary of Assessment and Plan: Mr. Purcell is a 63 M with h/o CHF, Afib on Eliquis, COPD, DM, CKD who presents with decreased urine output, dyspnea and swelling while on lasix, and BRBPR. BNP 487, SCr 5.73, Hgb 7.7, Troponin 0.06, and CXR showing stable pulmonary edema. Symptoms and workup consistent with CHF exacerbation, CRISTY, and GI bleed. A/P: Acute exacerbation of CHF: BNP 487. Likely secondary to acute blood loss in setting of GI bleed. Most recent echo with LVEF 35%. Received albumin infusion. Strict I/O's monitoring. Recommendations for diuresis per nephrology. Anemia: Acute on chronic. Acute anemia d/t blood loss in setting of anemia of chronic disease. Continue iron supplementation. Acute surgery consulted, recommendations appreciated. No intervention is planned. Previous EGD/colonoscopy twice in the last year, suspect internal hemorrhoids. Holding ASA and AC. Received 1 units pRBCs. Hemoglobin stable at 7.7 today. Elevated troponin: Adynamic. Likely d/t increased oxygen demand in setting of acute blood loss d/t GIB CRISTY on CKD stage III: Sees Dr. Glass outpatient. Nephrology consulted, recommendations appreciated. Will follow renal protective strategy, Strict I/O monitoring. Tunneled HD line placed today, [employer]MER[employer] OPERATOR started this afternoon for abbreviated session. GIB: EGD and colonoscopy July 2018 showed no esophageal lesions, portalh ypertensive gastropathy, non-bleeding internal hemorrhoids, non-bleeding polyp Afib: Continuing home meds amiodarone, mexelitine, metoprolol. Holding AC. Cirrhosis: MELD 28. Paracentesis attempted but not sufficient fluid to drain, not performed. Lactulose and rifaximin continued. GI consulted DM: Sliding scale insulin, well controlled in the 100s. ADA diet Prophylaxis: EPCDs Diet: Cardiac, ADA - Time Spent with Patient Total time spent is greater than 50% in coordination of care (as documented) at patient's floor/unit and/or counseling patient: Internal Medicine: Result - Labs CBC & Chem 7: 09/06/18 05:19 09/06/18 05:19 Labs: Short CBC 09/05/18 09/05/18 09/06/18 Range/Units 11:34 19:11 05:19 WBC 7.9 (4.3-11.1) K/mcL Hgb 7.5 L 8.0 L 7.7 L (12.9-16.9) g/dL Hct 24.9 L 25.7 L 24.8 L (37.5-50.1) % Plt Count 138 L (140-400) K/mcL Neutrophils # 6.0 (1.6-8.9) K/mcL BMP 09/06/18 05:19 Sodium 131 L Potassium 4.7 Chloride 96 L Carbon Dioxide 19 L BUN 103 H Creatinine 7.15 H Glucose 47 L Calcium 8.7 Cardiac Enzymes 09/05/18 Range/Units 11:34 Troponin I 0.05 H* (< 0.04) ng/mL - ABG Interpretation ABG results: PT/INR, D-dimer PT 16.3 Seconds (9.4-12.1) H 09/05/18 02:26 <Linda Miller - Last Filed: 09/06/18 19:54> (3) A-fib Qualifiers: Atrial fibrillation type: unspecified Qualified Code(s): I48.91 - Unspecified atrial fibrillation (5) Cirrhosis Qualifiers: Hepatic cirrhosis type: unspecified hepatic cirrhosis Ascites presence: without ascites Qualified Code(s): K74.60 - Unspecified cirrhosis of liver (6) Atrial fibrillation Qualifiers: Atrial fibrillation type: unspecified Qualified Code(s): I48.91 - Unspecified atrial fibrillation (8) Anemia Qualifiers: Anemia type: unspecified type Qualified Code(s): D64.9 - Anemia, unspecified (9) Hematuria Qualifiers: Hematuria type: unspecified type Qualified Code(s): R31.9 - Hematuria, unspecified (10) T2DM (type 2 diabetes mellitus) Qualifiers: Diabetes mellitus penitentiary insulin use: without penitentiary use Diabetes mellitus complication status: with hyperglycemia Qualified Code(s): E11.65 - Type 2 diabetes mellitus with hyperglycemia (11) Obesity Qualifiers: Obesity type: due to excess calories Obesity classification: adult class 3 (BMI >= 40) Serious obesity comorbidity presence: with serious comorbidity Body mass index: BMI 40.0-44.9 Qualified Code(s): E66.01 - Morbid (severe) obesity due to excess calories; Z68.41 - Body mass index (BMI) 40.0-44.9, adult (12) CAD (coronary artery disease) Qualifiers: Coronary Disease-Associated Artery/Lesion type: [place] artery [place] vs. transplanted heart: [place] heart Associated angina: with stable angina Qualified Code(s): I25.118 - Atherosclerotic heart disease of [place] coronary artery with other forms of angina pectoris
[2018-09-06 10:01] LABS: Albumin 3.9 g/dL (3.5-5.7); Albumin/Globulin Ratio 1.8 (1.1-2.2); Bilirubin,Direct 0.6 mg/dL (0.0-0.2); Bilirubin,Indirect 0.7 mg/dL (0.0-1.2); Bilirubin,Total 1.3 mg/dL (0.3-1.0); Globulin 2.2 g/dL (2.4-3.5); Total Protein 6.1 g/dL (6.4-8.9)
--- NOTE | 2018-09-06 10:11 | Electrocardiograph Report ---
[place] [id number] Test Date: 2018-09-05 Pat Name: John Purcell Department: [id number] Room: 2NE29 Gender: M Interim Controller: : [id number] Requested By: Arabella Yung Order Number: [id number] Reading MD: Ranjit Diaz Measurements Intervals [place] Rate: 70 P: 267 NE: 186 QRS: 160 QRSD: 248 T: 3 QT: 555 QTc: 599 Interpretive Statements VENTRICULAR PACED RHYTHM Electronically Signed On 09-06-2018 10:09:15 EDT by Ranjit Diaz
[2018-09-06] MEDS: Metoprolol XL (24 HR) Succ 25 MG TAB.ER.24H PO SCH (12:21)
--- NOTE | 2018-09-06 12:40 | Nephrology Progress Note ---
Date of Encounter: 09/06/18 Time of Encounter: 10:34 - Assessment and Plan (1) Acute kidney injury superimposed on CKD Current Visit: Yes Status: Acute He has worsening renal function, and has medical necessity to initiate hemodialysis today. He has relatively soft blood pressures, so I ordered only gentle treatment today. Pending placement of his dialysis catheter, because he has had so many hospitalizations with acute kidney injury after acute kidney injury, and because he has not tolerated various regimens of oral diuretics, I recommend initiation of chronic hemodialysis. I requested the interventional radiologists to place a permacath if able. I updated his family who were at bedside. I have placed dialysis orders for today, and he will likely need 3 treatments in a row. I have requested a permacath, and also he will need a social media director consult to help arrange for outpatient dialysis unit placement. Meanwhile, continue to follow a renal protective strategy: Strict I's and O's, daily weights, avoidance of nephrotoxic agents, and renal dosing. Will follow with you. Thank you (2) Acute on chronic systolic CHF (congestive heart failure), NYHA class 3 Current Visit: Yes Status: Acute Contributing to his edema as well. He has had episodes of CRS documented previously as well (3) Anemia Current Visit: Yes Status: Acute Acute on chronic with goal Hgb of 10-11. Will monitor. He may need EPO and/or IV iron during this admission. Qualifiers: Anemia type: unspecified type Qualified Code(s): D64.9 - Anemia, unspecified (4) Bright red blood per rectum Current Visit: Yes Status: Acute I will defer the GI bleeding workup to his primary team (5) Hyponatremia Current Visit: No Status: Acute Hypervolemic hyponatremia in the setting of CHF and cirrhosis of the liver. All of these are potential etiologies for his hyponatremia. When dialysis is started tomorrow, I will order fluid removal, which should improve his volume status and therefore the hyponatremia. Subjective Principal diagnosis: Renal failure Interval history: The patient was seen and examined earlier in the day. He had been sleeping with his nasal CPAP, and his family present at bedside. He affirms feeling very fatigued and tired. He had been made nothing by mouth, but he affirmed having a diminished appetite anyway. He denied having nausea or vomiting. Objective - Vital Signs Vital signs: Vital Signs Temp Pulse Resp BP Pulse Ox 09/06/18 12:04 97.7 F 70 20 113/63 93 09/06/18 07:15 97.6 F 69 21 130/38 96 09/06/18 03:56 97.9 F 72 18 98/30 95 09/05/18 23:00 97.6 F 79 20 90/52 91 09/05/18 22:45 98 09/05/18 19:27 97.7 F 69 20 86/62 91 09/05/18 18:16 97.7 F 71 09/05/18 15:50 97.9 F 69 111/53 92 09/05/18 15:45 97.7 F 77 114/47 09/05/18 15:31 97.6 F 74 110/46 94 Intake and Output 09/05/18 09/06/18 09/06/18 23:59 07:59 15:59 Intake Total 510 / 1310 100 / 220 120 / 220 Output Total 80 / 80 Balance 510 / 1310 20 / 140 120 / 140 Intake: IV Fluids 100 / 300 100 / 100 Flexbumin 25 gm In 100 ml @ 60 100 / 300 100 / 100 mls/hr IVPB Q6HR [facility] Rx#: [id number] Oral 60 / 660 120 / 120 Blood Product 350 / 350 Rbcs Leuko Poor As-1 Unit 350 / 350 [id number] Output: Catheter 80 / 80 Other: Meal Dinner Breakfast Percent of Meal Consumed 60% 100% Weight 125.2 kg Blood Glucose* 142 52 111 - General Appearance General appearance: Present: well-developed, well-nourished, appears started age, obese, fatigue, frail EENT: Present: ATNC, PERRL, mucous membranes moist Additional Comments: He was wearing his nasal CPAP Additional Comments: Right neck scar Respiratory: Present: clear ( But diminished breath sounds bilaterally) Cardiology: Present: edema (1+ pretibial pitting edema b/l), regular rate, regular rhythm Additional Comments: AV access: pending placement of the CVC Gastrointestinal: Present: normoactive bowel sounds, no guarding, obese Integumentary: Present: warm and dry Neurologic: Present: no focal deficit, asterixis Musculoskeletal: Present: no erythema, no clubbing Psychiatric: Present: mood/affect appropriate, cooperative - Lab 09/06/18 05:19 09/06/18 05:19 Most recent lab results 09/06/18 05:19 Calcium 8.7 Consult Discharge Plan - Plan Referrals: Trevor Horowitz MD [Primary Care Provider] -
--- NOTE | 2018-09-06 13:15 | Gastroenterology Consult Note ---
<Junior Nickerson - Last Filed: 09/06/18 13:30> Date of Encounter: 09/06/18 Time of Encounter: 10:45 - Assessment and plan (1) Cirrhosis Current Visit: Yes Status: Acute Assessment and plan: MELD-Na 28 and Child-Joyner class B. AFP 4 on 08/13/2018. RUQ US 08/30/2018 with no ascited, small right pleural effusion. Cardiac EF 35%. Liver work up was negative. Paracentesis today. Infuse Albumin 25%, 8 gm/L if greater than 5 liters removed. Check fluid studies. Titrate lactulose for 2-4 bowel movements daily. Use rifaximin 550 mg twice a day. Lifestyle Changes: 1. Total abstinence from alcohol including social drinking. 2. No smoking. 3. Gradual loss of weight. 4. Drink at least 3 cups of coffee due to its antioxidant effects in the liver, it reduces risk of HCC and advance fibrosis. 5. If needed, use less than 2 g/day of Tylenol (in divided doses). 6. Vaccination for Hep A, B, Pneumococcus if not already received and yearly influenza vaccination by PCP. 7. Avoid NSAIDS as can cause kidney damage. 8. Avoid benzodiazepines and other sedatives such as anti-histamines, narcotics etc. as can cause encephalopathy or confusion. 9. Take a late carbohydrate meal supplement as it reduces glucose production from protein breakdown and thus improves nutrition. 10. In cirrhosis, statins are safe to use and also improve portal hypertension and decrease risk of HCC. 11. Screening: Hepatocellular cancer screening: US of liver and AFP every 6 months Qualifiers: Hepatic cirrhosis type: unspecified hepatic cirrhosis Ascites presence: without ascites Qualified Code(s): K74.60 - Unspecified cirrhosis of liver (2) Bright red blood per rectum Current Visit: Yes Status: Acute Assessment and plan: Likely due to internal hemorrhoids found on colonoscopy 08/13/2018. - Time Spent With Patient Total time spent is greater than 50% in coordination of care (as documented) at patient's floor/unit and/or counseling patient: GI History of Present Illness - Data of Consult Patient: known to practice within the last 3 years Consult date: 09/06/18 Requesting Physician: Ha Huerta - Consult Narrative Reason for consult: Cirrhosis History of present illness: Mr. Purcell is a 63 year old male with PMHx of DM, HLD, HTN, CAD, A fib, cardiomyopathy s/p AICD, who presented to the ED He was recently here and discharged on September 01, 2018 after treatment for CHF exacerbation. He was sent home with Lasix 40 mg PO BID, reports poor urinary output and returned with fluid overload and CRISTY on CKD. He also states that he has had BRBPR due to straining. He denies fever, chills, constipation, nausea, vomiting, hematemesis, melena. He had EGD and colonsocopy 08/13/2018, no bleeding noted. Surgery was consulted to evaluate BRBPR, and states it is likely due to his internal hemorrhoids. We were consulted to evaluate his cirrhosis. Procedures: EGD 08/13/2018 Dr. Gutierrez: Portal hypertensive gastropathy, gastritis. Colonoscopy 08/13/2018 Dr. Gutierrez: Tortuous colon, 6 mm hyperplastic polyp in the transverse colon, internal hemorrhoids, recommended repeat in 6 months to remove polyp. Colonoscopy April 2018 at [facility] with 9 polyps removed per patient report. NSAIDs: ASA Anticoagulation: Eliquis Past Med Surg Social Fam HX - Past Medical History Medical history: CHF, COPD, diabetes, hyperlipidemia, hypertension, renal disea se, thyroid disease Additional medical history: gout, type 2 DM Psychiatric history: no psych history - Past Surgical History Additional surgical history: R knee replacement,CTR bilateral hands, Ventricular septal repair. - Social History Smoking Status: Former smoker Smokeless Tobacco Status: No Alcohol use: none Drug use: none - Family History Mother Living Status: Hx Family Cardiac Disorders: Yes (mother/father heart attack) Hx Family Respiratory Disorders: No Hx Family Cancer: No Hx Family GI Disorders: No Hx Family Endocrine Disorder: Yes Hx Family Neuromuscular Disorders: No Hx Family Neurologic Disorders: No Hx Family HEENT Disorders: No Hx Family Autoimmune Disorders: No Father Adopted: No Race: Living Status: Hx Family Cardiac Disorders: Yes Hx Family Cancer: Yes - Gastrointestinal Gastrointestinal: Present: as per HPI - Constitutional Constitutional: as per HPI - EENT Eyes: as per HPI Ears: Present: as per HPI Nose, mouth and throat: Present: as per HPI - Cardiovascular Cardiovascular ROS: Present: as per HPI - Respiratory Respiratory IM: Present: as per HPI - Genitourinary Genitourinary: Absent: change in color, Urinary frequency - Neurological ROS Neurological GI: Present: as per HPI - Hematologic/Lymphatic Hematologic/Lymphatic pediatric: Present: as per HPI - Musculoskeletal Musculoskeletal ROS GI: Present: as per HPI - Integumentary Integumentary GI: Present: as per HPI - Psychiatric ROS Psychiatric GI: Present: as per HPI - Endocrine Endocrine IM: Present: as per HPI - Constitutional Vitals: Temp Pulse Resp BP Pulse Ox 97.7 F 70 20 113/63 93 09/06/18 12:04 09/06/18 12:04 09/06/18 12:04 09/06/18 12:04 09/06/18 12:04 General appearance: Present: cooperative, A&O X 3, no acute distress, answers questions appropriately - Head Head exam: Present: atraumatic, normocephalic - Eye Eye exam: Present: normal appearance, sclera anicteric - ENT ENT exam: Present: mucous membranes moist - Neck Neck exam general surgery: Present: normal inspection, trachea midline - Respiratory Respiratory exam: Present: decreased breath sounds, CTAB Additional comments: Nasal CPAP in place. - Cardiovascular Cardiovascular exam: Present: RRR, +S1, +S2 - GI/Abdominal GI/Abdominal exam: Present: distended, firm, soft, no peritoneal signs. Absent: guarding, tenderness - Expanded GI/Abdominal Exam GI/Abdominal exam expanded: Present: ascites - Rectal Rectal exam: Present: deferred - Extremities Exam Extremities exam: Present: warm - Neurological Exam Neurological exam: Present: no focal deficits - Psychiatric Psychiatric exam: Present: normal affect, normal mood - Skin Skin exam: Present: dry, intact, normal color, warm Results - Labs CBC & Chem 7: 09/06/18 05:19 09/06/18 05:19 Labs: Last Result 09/06/18 09/06/18 05:19 05:19 Calcium 8.7 Iron 24 L % Saturation 9 L Transferrin 201 L Ferritin 83 Entire Visit 09/06/18 09/06/18 09/06/18 05:19 05:19 05:19 Hgb 7.7 L Hct 24.8 L Ferritin 83 Total Bilirubin 1.3 H AST 40 H ALT 24 - ABG ABG results: PT/INR, D-dimer PT 16.3 Seconds (9.4-12.1) H 09/05/18 02:26 Consult Discharge Plan - Plan Referrals: Trevor Horowitz MD [Primary Care Provider] - <Meera Fortune - Last Filed: 09/06/18 17:16> Date of Encounter: 09/06/18 Time of Encounter: 14:00 - Time Spent With Patient Total time spent is greater than 50% in coordination of care (as documented) at patient's floor/unit and/or counseling patient: GI History of Present Illness - Data of Consult Requesting Physician: Ha Huerta - Consult Narrative History of present illness: Mr. Purcell is a 63 year old male - Constitutional Vitals: Temp Pulse Resp BP Pulse Ox 97.6 F 70 18 98/50 93 09/06/18 15:55 09/06/18 12:04 09/06/18 15:55 09/06/18 16:55 09/06/18 12:04 Results - Labs CBC & Chem 7: 09/06/18 05:19 09/06/18 05:19 Labs: Last Result 09/06/18 09/06/18 05:19 05:19 Calcium 8.7 Iron 24 L % Saturation 9 L Transferrin 201 L Ferritin 83 Entire Visit 09/06/18 09/06/18 09/06/18 05:19 05:19 05:19 Hgb 7.7 L Hct 24.8 L Ferritin 83 Total Bilirubin 1.3 H AST 40 H ALT 24 - ABG ABG results: PT/INR, D-dimer PT 16.3 Seconds (9.4-12.1) H 09/05/18 02:26 - Impressions Impressions Guidance Ultrasound 09/06/18 00:00 IMPRESSION: Ultrasound and fluoroscopic guided tunneled HD catheter placement. No immediate complications. D/ / 09/06/2018 15:39:45 Stoney Fong MD / tamara Interpreting Provider: Stoney Fong MD Insertion Tunneled Catheter 09/06/18 00:00 IMPRESSION: Ultrasound and fluoroscopic guided tunneled HD catheter placement. No immediate complications. D/ / 09/06/2018 15:39:45 Stoney Fong MD / tamara Interpreting Provider: Stoney Fong MD Abdomen/Pelvis/Transvag US 09/06/18 13:01 IMPRESSION: Small volume ascites, with insufficient fluid for a paracentesis at this time. D/ / Stoney Fong MD / Stoney Fong MD Interpreting Provider: Stoney Fong MD - Attending Attestation I have personally performed a face to face evaluation on this patient. I have reviewed and agree with the care plan. History and Exam by me shows: Patient seen. Currently getting dialysis. On examination: Alert and awake. Abdomen is large and distended. Extremity with 2+ edema. Assessment: Pt with DM, HLD, HTN, CAD, A fib, cardiomyopathy s/p AICD now with cirrhosis. Meld sodium score of 28. #2 acute on chronic renal failure currently on dialysis. Recommendation: Patient is not a candidate for TIPS placement because of his very high meld score and also because a history of cardiomyopathy.
[2018-09-06] MEDS ORDERED: Heparin 1,000 UNITS/500 mL 500 ML ONE (14:25)
[2018-09-06] MEDS ORDERED: *HR* FentaNYL (PF) 100 MCG/2 ML VIAL IVP ONE (14:38)
[2018-09-06] MEDS ORDERED: CeFAZolin Premix DUPLEX 2,000 MG/50 ML BAG IVPB ONE ×2 (14:38→14:50)
--- NOTE | 2018-09-06 14:53 | Event Note ---
Date of Encounter: 09/06/18 Time of Encounter: 14:52 Insufficient ascitic fluid for diagnostic or therapeutic paracentesis. Procedure not done.
--- NOTE | 2018-09-06 15:13 | IR Procedure Note ---
Date of procedure: 09/06/18 Consent Obtained: Verbal consent, Written consent Timeout: Correct patient and procedure verified, Correct site verified, Time out performed, Skin prep completed Local anesthetic: Lidocaine 1% Indications: Chronic renal failure Procedure Performed: Tunneled HD catheter placement Was there an mailroom assistant present: No Site/Technique: Right IJ HD catheter placed in VIR Results/Findings: Catheter in good position Estimated blood loss (cc): 4 Complications: None; Tolerated procedure well Post Procedure Treatment Plan: OK to use HD catheter now Specimen: None
[2018-09-06] MEDS ORDERED: *HR* Heparin 10,000 UNIT/10 ML VIAL IV PRN (16:31)
[2018-09-06] MEDS: Gabapentin 300 MG CAPSULE PO SCH (19:52)
[2018-09-06] MEDS: Isosorbide MONOnitrate (24 HR) 30 MG TAB.ER.24H PO SCH (22:12)
[2018-09-06] MEDS: Acetaminophen 325 MG TABLET PO PRN (22:21)
[2018-09-07] MEDS ORDERED: 0.9 % Sodium Chloride 250 ML IVC PRN (06:49)
[2018-09-07] MEDS ORDERED: *HR* Heparin 10,000 UNIT/10 ML VIAL IV PRN (06:49)
[2018-09-07] MEDS ORDERED: 0.9 % Sodium Chloride 1,000 ML PRIME SCH (07:00)
[2018-09-07] MEDS ORDERED: 0.9 % Sodium Chloride 2,000 ML ONE (07:00)
[2018-09-07] MEDS: Insulin LISPRO 300 UNITS/3 ML VIAL SQ SCH ×4 (08:18→23:40)
--- NOTE | 2018-09-07 08:21 | Internal Med Progress Note ---
<Linda Miller - Last Filed: 09/07/18 16:27> Hospitalist Progress Note - Encounter Date of Encounter: 09/07/18 Time of Encounter: 14:00 - Subjective Interval History: Seated in bedside chair. Family present in room. Pt appears more energetic today, in better spirits. Breathing has improved since initiating HD. No chest pain. Reports intermittent fevers/chills overnight. - Exam Vitals: Temp Pulse Resp BP Pulse Ox 98.2 F 69 17 117/55 90 09/07/18 04:15 09/07/18 07:20 09/07/18 07:20 09/07/18 07:20 09/07/18 07:20 Exam: eneral: No acute distress, appears comfortable in bedside chair, vitals reviewed HEENT: head normocephalic/atraumatic, EOMI, PERRL, sclera anicteric, moist mucus membranes Neck: Supple, no lymphadenopathy Cardio: RRR, no murmurs, +S1/S2, peripheral edema present Pulm: no wheezing or rhonchi; rales bilaterally. Normal respiratory effort. not using accessory muscles of respiration Abdomen: soft, nontender, BS+, no rigidity Extremities: BLE 2+ pitting edema,, no cyanosis, DP pulses equal bilaterally Back: normal appearance on inspection Neuro: AAOx3, no focal deficit, no speech deficit, mentating well, CN II-XII grossly intact, moves all extremities spontaneously MSK: no visible deformities Skin: clean, dry, intact, no visible rashes Psych: Appropriate mood and affect. Answers questions appropriately. Cooperative with exam - Assessment and Plan (1) Acute on chronic systolic CHF (congestive heart failure), NYHA class 3 Current Visit: Yes Status: Acute (2) A-fib Current Visit: Yes Status: Chronic (3) Acute kidney injury superimposed on CKD Current Visit: Yes Status: Acute (4) Cirrhosis Current Visit: Yes Status: Chronic (5) Atrial fibrillation Current Visit: Yes Status: Chronic (6) DVT prophylaxis Current Visit: Yes Status: Acute (7) Anemia Current Visit: Yes Status: Acute (8) T2DM (type 2 diabetes mellitus) Current Visit: Yes Status: Chronic (9) Obesity Current Visit: Yes Status: Chronic (10) CAD (coronary artery disease) Current Visit: Yes Status: Chronic (11) Bright red blood per rectum Current Visit: Yes Status: Acute - Summary of Assessment and Plan Summary of Assessment and Plan: Mr. Purcell is a 63 M with h/o CHF, Afib on Eliquis, COPD, DM, CKD who presents with decreased urine output, dyspnea and swelling while on lasix, and BRBPR. BNP 487, SCr 5.73, Hgb 7.7, Troponin 0.06, and CXR showing stable pulmonary edema. Symptoms and workup consistent with CHF exacerbation, CRISTY, and GI bleed. A/P: Acute exacerbation of CHF: BNP 487. Likely secondary to acute blood loss in setting of GI bleed. Most recent echo with LVEF 35%. Received albumin infusion. Strict I/O's monitoring. Recommendations for diuresis per nephrology. Appears to be diuresing well on HD. - Discontinue scott - Continue to monitor I/O's, daily weight Anemia: Acute on chronic. Acute anemia d/t blood loss in setting of anemia of chronic disease. Continue iron supplementation. Acute surgery consulted, recommendations appreciated. No intervention is planned. Previous EGD/colonoscopy twice in the last year, suspect internal hemorrhoids. Holding ASA and AC. Received 1 units pRBCs. Hemoglobin stable at 7.7 today. Nephro recs goal Hgb 10-11. - Starting Epo per nephro - Transfuse 1 unit pRBCs, recheck H/H once complete CRISTY on CKD with progression to ESRD requiring HD: GFR < 15 since 09/05. Nephrology following, will follow Dr. Glass outpatient. Strict I/O monitoring. Tunneled HD placement by IR on 09/06. HD started 09/06, nephro plans for 3 consecutive treatments at this time. GIB: Suspect secondary to portal hypertension, decompensation of liver. EGD and colonoscopy July 2018 showed no esophageal lesions, portalhypertensive gastropathy, non-bleeding internal hemorrhoids, non-bleeding polyp. Afib: Continuing home meds amiodarone, mexelitine, metoprolol. Holding AC. Decompensation of hepatic cirrhosis: MELD 28. Paracentesis attempted but not sufficient fluid to drain, not performed. Lactulose and rifaximin continued. GI consulted. Thrombocytopenia: secondary to decompensated cirrhosis. Contributing to GIB. DM: Sliding scale insulin, well controlled in the 100s. ADA diet. Elevated troponin: Adynamic. Likely d/t increased oxygen demand in setting of acute blood loss d/t GIB Prophylaxis: EPCDs Diet: Cardiac, ADA Discharge planning: SW helping set up [place] [employer] chair time - Time Spent with Patient Total time spent is greater than 50% in coordination of care (as documented) at patient's floor/unit and/or counseling patient: Internal Medicine: Result - Labs CBC & Chem 7: 09/07/18 08:11 09/07/18 08:11 Labs: BMP 09/06/18 05:19 Sodium 131 L Potassium 4.7 Chloride 96 L Carbon Dioxide 19 L BUN 103 H Creatinine 7.15 H Glucose 47 L Calcium 8.7 Liver Function 09/06/18 Range/Units 05:19 Total Bilirubin 1.3 H (0.3-1.0) mg/dL Direct Bilirubin 0.6 H (0.0-0.2) mg/dL AST 40 H (13-39) Units/L ALT 24 (7-52) Units/L Alkaline Phosphatase 112 H (34-104) Units/L Albumin 3.9 (3.5-5.7) g/dL - ABG Interpretation ABG results: PT/INR, D-dimer PT 16.3 Seconds (9.4-12.1) H 09/05/18 02:26 - Impressions Impressions Guidance Ultrasound 09/06/18 00:00 IMPRESSION: Ultrasound and fluoroscopic guided tunneled HD catheter placement. No immediate complications. D/ / 09/06/2018 15:39:45 Stoney Fong MD / tamara Interpreting Provider: Stoney Fong MD Insertion Tunneled Catheter 09/06/18 00:00 IMPRESSION: Ultrasound and fluoroscopic guided tunneled HD catheter placement. No immediate complications. D/ / 09/06/2018 15:39:45 Stoney Fong MD / tamara Interpreting Provider: Stoney Fong MD Abdomen/Pelvis/Transvag US 09/06/18 13:01 IMPRESSION: Small volume ascites, with insufficient fluid for a paracentesis at this time. D/ / Stoney Fong MD / Stoney Fong MD Interpreting Provider: Stoney Fong MD Consult Discharge Plan - Plan Referrals: Trevor Horowitz MD [Primary Care Provider] - <Ha Huerta - Last Filed: 09/07/18 18:09> Hospitalist Progress Note - Encounter Date of Encounter: 09/07/18 Internal Medicine: Result - Labs CBC & Chem 7: 09/07/18 08:11 09/07/18 08:11 Labs: Short CBC 09/07/18 Range/Units 08:11 WBC 4.9 (4.3-11.1) K/mcL Hgb 7.6 L (12.9-16.9) g/dL Hct 24.7 L (37.5-50.1) % Plt Count 122 L (140-400) K/mcL Neutrophils # 3.8 (1.6-8.9) K/mcL BMP 09/07/18 08:11 Sodium 131 L Potassium 4.2 Chloride 96 L Carbon Dioxide 23 BUN 63 H Creatinine 5.34 H Glucose 54 L Calcium 8.6 - Attending Attestation Patient seen and examined independently, including review of objective data including labs. I agree with plan of care as documented above by the resident with the following comments: Pt feeling better today, getting 2nd HD and denies acute complaints. Extensive discussion with pt's about his comorbidities and poor general health because she had lots of questions in this regard (HFrEF 35%, decompensated cirrhosis, ESRD). Overall, pt is seemingly tolerating and improving somewhat with HD, and will plan for 3rd session tomorrow. PT/OT rec swing bed and SW to help arrange. <Linda Miller - Last Filed: 09/07/18 16:27> (2) A-fib Qualifiers: Atrial fibrillation type: unspecified Qualified Code(s): I48.91 - Unspecified atrial fibrillation (4) Cirrhosis Qualifiers: Hepatic cirrhosis type: unspecified hepatic cirrhosis Ascites presence: without ascites Qualified Code(s): K74.60 - Unspecified cirrhosis of liver (5) Atrial fibrillation Qualifiers: Atrial fibrillation type: unspecified Qualified Code(s): I48.91 - Unspecified atrial fibrillation (7) Anemia Qualifiers: Anemia type: unspecified type Qualified Code(s): D64.9 - Anemia, unspecified (8) T2DM (type 2 diabetes mellitus) Qualifiers: Diabetes mellitus crm manager insulin use: without crm manager use Diabetes mellitus complication status: with hyperglycemia Qualified Code(s): E11.65 - Type 2 diabetes mellitus with hyperglycemia (9) Obesity Qualifiers: Obesity type: due to excess calories Obesity classification: adult class 3 (BMI >= 40) Serious obesity comorbidity presence: with serious comorbidity Body mass index: BMI 40.0-44.9 Qualified Code(s): E66.01 - Morbid (severe) obesity due to excess calories; Z68.41 - Body mass index (BMI) 40.0-44.9, adult (10) CAD (coronary artery disease) Qualifiers: Coronary Disease-Associated Artery/Lesion type: [place] artery [place] vs. transplanted heart: [place] heart Associated angina: with stable angina Qualified Code(s): I25.118 - Atherosclerotic heart disease of [place] coronary artery with other forms of angina pectoris
[2018-09-07] MEDS: Loratadine 10 MG TABLET PO SCH (09:16)
[2018-09-07] MEDS: *HR* Amiodarone 200 MG TABLET PO SCH (09:16)
[2018-09-07] MEDS: Lactulose Oral Soln 20 GM/30 ML UDC PO SCH ×3 (09:17→23:41)
[2018-09-07] MEDS: Metoprolol XL (24 HR) Succ 25 MG TAB.ER.24H PO SCH (09:17)
--- NOTE | 2018-09-07 10:08 | Nephrology Progress Note ---
Date of Encounter: 09/07/18 Time of Encounter: 10:08 - Assessment and Plan (1) Acute kidney injury superimposed on CKD Current Visit: Yes Status: Acute HD today, day 2 Plan for HD again tomorrow for 3rd treatment in a row Needs renal diet-ordered Needs fluid restriction-ordered Avoid nephrotoxins if possible Consult placed to psychiatric social worker supervisor to get a chair time at [facility] (2) Anemia Current Visit: Yes Status: Acute Hgb 7.7 Will start epo Goal hgb 10-11 Transfuse per parameters Qualifiers: Anemia type: unspecified type Qualified Code(s): D64.9 - Anemia, unspecified (3) Acute on chronic systolic CHF (congestive heart failure), NYHA class 3 Current Visit: Yes Status: Acute Contributing to his edema as well. He has had episodes of CRS documented previously as well Subjective Principal diagnosis: Renal failure Interval history: Patient seen and examined during dialysis. States he is feeling better today. Requests to transfer from Dr Barrientos to our group, specifically Dr Glass. Objective - Vital Signs Vital signs: Vital Signs Temp Pulse Resp BP Pulse Ox 09/07/18 07:20 69 17 117/55 90 09/07/18 04:15 98.2 F 64 18 111/64 95 09/07/18 00:26 97.8 F 56 17 104/60 91 09/06/18 20:04 96 09/06/18 19:44 97.5 F L 70 16 118/61 95 09/06/18 19:19 97.1 F L 18 124/69 09/06/18 18:55 104/56 09/06/18 18:40 119/64 09/06/18 18:25 129/67 09/06/18 18:10 111/79 09/06/18 17:55 99/49 09/06/18 17:40 109/45 09/06/18 17:25 100/55 09/06/18 17:10 110/59 09/06/18 16:55 98/50 09/06/18 16:40 105/59 09/06/18 16:25 129/74 09/06/18 16:10 100/72 09/06/18 15:55 97.6 F 18 105/65 09/06/18 12:04 97.7 F 70 20 113/63 93 Intake and Output 05/09/07/18 09/07/18 23:59 07:59 15:59 Intake Total 360 / 1180 0 / 0 Output Total 2099 50 / 50 Balance -1740 / -1000 -50 / -50 Intake: Oral 360 / 480 0 / 0 Output: Urine 0 / 0 50 / 50 Total Dialysis (HD) Output 2099 Other: Stool Size Copious Stool Consistency loose Stool Color Brown # Voids 1 Weight 124.9 kg Blood Glucose* 138 46 Hemodialysis Net Fluid Removed 1500 (mL) Patient Weight 09/07/18 23:59 Weight 124.9 kg - General Appearance General appearance: Present: obese EENT: Present: ATNC, mucous membranes moist, hearing intact, vision intact Neck: Present: supple Respiratory: Present: clear (decreased) Cardiology: Present: edema, normal S1, normal S2 Dialysis Vascular Access: Venous Catheter Gastrointestinal: Present: no tenderness, no guarding, obese Integumentary: Present: warm and dry Neurologic: Present: alert and oriented x3 Psychiatric: Present: mood/affect appropriate, cooperative - Lab 09/06/18 05:19 09/06/18 05:19 Consult Discharge Plan - Plan Referrals: Trevor Horowitz MD [Primary Care Provider] -
[2018-09-07 11:03] LABS: Calcium 8.6 mg/dL (8.6-10.3); Potassium 4.2 mEq/L (3.5-5.1)
[2018-09-07 11:05] LABS: Basophils % 0.4 %; Eosinophils # 0.1 K/mcL (0.0-0.6); Eosinophils % 1.2 %; Hematocrit 24.7 % (37.5-50.1); Hemoglobin 7.6 g/dL (12.9-16.9); Immature Granulocytes % 0.2 % (0-4); Lymphocytes # 0.4 K/mcL (0.6-4.6); Lymphocytes % 7.6 %; Mean Corpuscular HGB Conc 30.8 g/dL (31.6-35.5); Mean Corpuscular Hemoglobin 29.2 pg (28.0-33.3); Mean Platelet Volume 11.1 fL (9.4-12.4); Monocytes # 0.6 K/mcL (0.0-1.3); Monocytes % 12.3 %; Neutrophils # 3.8 K/mcL (1.6-8.9); Platelet Count 122 K/mcL (140-400); Red Cell Distribution Width 20.5 % (11.5-14.5); Segmented Neutrophils % 78.3 %
[2018-09-07] MEDS: Isosorbide MONOnitrate (24 HR) 30 MG TAB.ER.24H PO SCH (17:51)
[2018-09-07] MEDS: Gabapentin 300 MG CAPSULE PO SCH (20:17)
[2018-09-08 06:34] LABS: Basophils % 0.6 %; Eosinophils # 0.1 K/mcL (0.0-0.6); Eosinophils % 2.5 %; Hematocrit 24.7 % (37.5-50.1); Hemoglobin 7.5 g/dL (12.9-16.9); Immature Granulocytes % 0.4 % (0-4); Lymphocytes # 0.7 K/mcL (0.6-4.6); Lymphocytes % 14.5 %; Mean Corpuscular HGB Conc 30.4 g/dL (31.6-35.5); Mean Corpuscular Hemoglobin 29.1 pg (28.0-33.3); Mean Corpuscular Volume 95.7 fL (83.0-100.0); Mean Platelet Volume 10.8 fL (9.4-12.4); Monocytes # 0.7 K/mcL (0.0-1.3); Monocytes % 15.3 %; Neutrophils # 3.2 K/mcL (1.6-8.9); Platelet Count 111 K/mcL (140-400); Red Blood Count 2.58 M/mcL (4.19-5.50); Red Cell Distribution Width 20.6 % (11.5-14.5); Segmented Neutrophils % 66.7 %
[2018-09-08] MEDS ORDERED: 0.9 % Sodium Chloride 250 ML IVC PRN (07:32)
--- NOTE | 2018-09-08 08:28 | Internal Med Progress Note ---
<Marek Mayo - Last Filed: 09/08/18 14:08> Hospitalist Progress Note - Encounter Date of Encounter: 09/08/18 - Exam Vitals: Temp Pulse Resp BP Pulse Ox 98.2 F 105 17 94/65 98 09/08/18 04:13 09/08/18 07:03 09/08/18 09:50 09/08/18 13:05 09/08/18 07:03 - Assessment and Plan (1) Acute on chronic systolic CHF (congestive heart failure), NYHA class 3 Current Visit: Yes Status: Acute (2) Anemia Current Visit: Yes Status: Chronic (3) Bright red blood per rectum Current Visit: Yes Status: Resolved (4) Atrial fibrillation Current Visit: Yes Status: Chronic (5) CAD (coronary artery disease) Current Visit: Yes Status: Chronic (6) Cirrhosis Current Visit: Yes Status: Chronic (7) T2DM (type 2 diabetes mellitus) Current Visit: Yes Status: Chronic (8) Hypothyroidism Current Visit: No Status: Chronic - Time Spent with Patient Total time spent is greater than 50% in coordination of care (as documented) at patient's floor/unit and/or counseling patient: Internal Medicine: Result - Labs CBC & Chem 7: 09/08/18 06:01 09/08/18 06:01 Labs: Short CBC 09/08/18 Range/Units 06:01 WBC 4.8 (4.3-11.1) K/mcL Hgb 7.5 L (12.9-16.9) g/dL Hct 24.7 L (37.5-50.1) % Plt Count 111 L (140-400) K/mcL Neutrophils # 3.2 (1.6-8.9) K/mcL BMP 09/08/18 06:01 Sodium 135 L Potassium 4.0 Chloride 97 L Carbon Dioxide 26 BUN 38 H Creatinine 4.42 H Glucose 73 Calcium 9.0 - ABG Interpretation ABG results: PT/INR, D-dimer PT 16.3 Seconds (9.4-12.1) H 09/05/18 02:26 Consult Discharge Plan - Plan Referrals: Trevor Horowitz MD [Primary Care Provider] - - Attending Attestation I examined this patient and my medical decision-making was reviewed with the Resident Physician on 09/08/18. I agree with the documented findings, disposition and treatment plan as described except to the extent set forth below. Mr Purcell is currently admitted for acute exac systolic CHF. He has begun dialysis. He remains moderate to high risk due to potential for worsening clinical status. Mr Purcell is in dialysis. He is feeling OK. No fever or chills. Breathing and edema improving. No GI issues. Exam alert Comfortable lying flat in bed Mucus membranes dry Heart not tachy Decreased breath sounds Abd soft Edema present Moves all extremities I/P 1. Acute exac CHF - improving with dialysis. 2. Anemia - most likely due to renal disease 3. ESRD now on HD 4. Chronic a fib - rate controlled on current meds 5. Cirrhosis 6. DM - controlled 7. Hematochezia - resolved Further diagnoses and plan as above. <Linda Miller - Last Filed: 09/08/18 17:51> Hospitalist Progress Note - Encounter Date of Encounter: 09/08/18 Time of Encounter: 08:34 - Subjective Interval History: Examined in dialysis. Patient resting, appears comfortable. Reports feeling fine; feels his breathing has improved and having no abdominal discomfort. States last night was rough because he wasn't allowed to sleep on his right side, otherwise no complaints. No fevers, chills, chest pain, nausea, vomiting. - Exam Vitals: Temp Pulse Resp BP Pulse Ox 98.2 F 105 18 100/37 98 09/08/18 04:13 09/08/18 07:03 09/08/18 07:03 09/08/18 07:03 09/08/18 07:03 Exam: eneral: No acute distress, resting, vitals reviewed HEENT: head normocephalic/atraumatic, EOMI, PERRL, sclera anicteric, moist mucus membranes Neck: Supple, no lymphadenopathy Cardio: RRR, no murmurs, +S1/S2, peripheral edema present though improved Pulm: Clear bilaterally on anterior auscultation. Normal respiratory effort. No wheezes, rhonchi, rales Abdomen: soft, nontender, BS+, no rigidity Extremities: BLE 2+ pitting edema, no cyanosis, DP pulses equal bilaterally Neuro: AAOx3, no focal deficit, no speech deficit, mentating well, CN II-XII grossly intact, moves all extremities spontaneously MSK: no visible deformities Skin: clean, dry, intact, no visible rashes Psych: Appropriate mood and affect. Answers questions appropriately. Cooperative with exam - Assessment and Plan (1) Acute on chronic systolic CHF (congestive heart failure), NYHA class 3 Current Visit: Yes Status: Acute Assessment and Plan: Improving. BNP 487 on admission. Most recent echo with LVEF 35%. Received albumin infusion. Appears to be diuresing well on HD. Recommendations for diuresis per nephrology. Cumulative I/O net -3740 mL - Continue to monitor I/O's, daily weight (2) Acute kidney injury superimposed on CKD Current Visit: Yes Status: Acute Assessment and Plan: CRISTY on CKI stage V with progression requiring HD Tunneled HD placement by IR on 09/06. HD started 09/06. Nephro plans for 3 consecutive treatments. Further dialysis schedule per nephro. Pt to follow Dr. Glass as outpatient. Strict I/O monitoring, daily weight. (3) Cirrhosis Current Visit: Yes Status: Chronic Assessment and Plan: MELD 28. Paracentesis attempted but not sufficient fluid to drain, not performed. GI consulted and recommends continuing Lactulose and rifaximin. (4) Atrial fibrillation Current Visit: Yes Status: Chronic Assessment and Plan: Rate controlled. Holding AC. Continue home meds amiodarone, mexelitine, metoprolol. (5) Anemia Current Visit: Yes Status: Acute Assessment and Plan: Hgb stable. Acute blood loss anemia from internal hemorrhoids as seen on EGD and colonoscopy 08/13/18. Holding ASA and AC. Received 1 units pRBCs. Nephro has started Epo with goal Hgb 10-11. (6) T2DM (type 2 diabetes mellitus) Current Visit: Yes Status: Chronic Assessment and Plan: Sliding scale insulin, ADA diet. (7) CAD (coronary artery disease) Current Visit: Yes Status: Chronic Assessment and Plan: Holding ASA. Continue lipitor. (8) Bright red blood per rectum Current Visit: Yes Status: Resolved Assessment and Plan: Resolved. No further BRBPR reported. Likely from internal hemorrhoids in setting of increased portal pressure d/t decompensation of liver cirrhosis. (9) Thrombocytopenia Current Visit: Yes Status: Acute Assessment and Plan: Secondary to cirrhosis. Trending downward since admission. Continue to monitor for signs of bleeding. (10) Obesity Current Visit: Yes Status: Chronic DVT Prophylaxis: EPCDs - Summary of Assessment and Plan Summary of Assessment and Plan: Mr. Purcell is a 63 M with h/o CHF, Afib on Eliquis, COPD, DM, CKD who presents with decreased urine output, dyspnea and swelling while on lasix, and BRBPR. BNP 487, SCr 5.73, Hgb 7.7, Troponin 0.06, and CXR showing stable pulmonary edema. Symptoms and workup consistent with CHF exacerbation, CRISTY, and GI bleed. Prophylaxis: EPCDs Diet: Cardiac, ADA Discharge planning: Zack Monet chair time, insurance approval for swing bed/rehab - Time Spent with Patient Total time spent is greater than 50% in coordination of care (as documented) at patient's floor/unit and/or counseling patient: less than 15 minutes Plan of Care Discussed with: patient Internal Medicine: Result - Labs CBC & Chem 7: 09/08/18 06:01 09/08/18 06:01 Labs: Short CBC 09/07/18 09/08/18 Range/Units 08:11 06:01 WBC 4.9 4.8 (4.3-11.1) K/mcL Hgb 7.6 L 7.5 L (12.9-16.9) g/dL Hct 24.7 L 24.7 L (37.5-50.1) % Plt Count 122 L 111 L (140-400) K/mcL Neutrophils # 3.8 3.2 (1.6-8.9) K/mcL BMP 09/07/18 09/08/18 08:11 06:01 Sodium 131 L 135 L Potassium 4.2 4.0 Chloride 96 L 97 L Carbon Dioxide 23 26 BUN 63 H 38 H Creatinine 5.34 H 4.42 H Glucose 54 L 73 Calcium 8.6 9.0 - ABG Interpretation ABG results: PT/INR, D-dimer PT 16.3 Seconds (9.4-12.1) H 09/05/18 02:26 <Marek Mayo - Last Filed: 09/08/18 14:08> (2) Anemia Qualifiers: Anemia type: due to chronic kidney disease Chronic kidney disease stage: on chronic dialysis Qualified Code(s): N18.6 - End stage renal disease; D63.1 - Anemia in chronic kidney disease; Z99.2 - Dependence on renal dialysis (4) Atrial fibrillation Qualifiers: Atrial fibrillation type: chronic Qualified Code(s): I48.2 - Chronic atrial fibrillation (5) CAD (coronary artery disease) Qualifiers: Coronary Disease-Associated Artery/Lesion type: [place] artery [place] vs. transplanted heart: [place] heart Associated angina: without angina Qualified Code(s): I25.10 - Atherosclerotic heart disease of [place] coronary artery w ithout angina pectoris (6) Cirrhosis Qualifiers: Hepatic cirrhosis type: unspecified hepatic cirrhosis Ascites presence: without ascites Qualified Code(s): K74.60 - Unspecified cirrhosis of liver (7) T2DM (type 2 diabetes mellitus) Qualifiers: Diabetes mellitus chcf insulin use: without terminal operations supervisor use Diabetes mellitus complication status: with kidney complications Diabetes mellitus complication detail: with chronic kidney disease Chronic kidney disease stage: on chronic dialysis Qualified Code(s): E11.22 - Type 2 diabetes mellitus with diabetic chronic kidney disease (8) Hypothyroidism Qualifiers: Hypothyroidism type: acquired Qualified Code(s): E03.9 - Hypothyroidism, unspecified <Linda Miller - Last Filed: 09/08/18 17:51> (3) Cirrhosis Qualifiers: Hepatic cirrhosis type: unspecified hepatic cirrhosis Ascites presence: without ascites Qualified Code(s): K74.60 - Unspecified cirrhosis of liver (4) Atrial fibrillation Qualifiers: Atrial fibrillation type: chronic Qualified Code(s): I48.2 - Chronic atrial fibrillation (5) Anemia Qualifiers: Anemia type: unspecified type Qualified Code(s): D64.9 - Anemia, unspecified (6) T2DM (type 2 diabetes mellitus) Qualifiers: Diabetes mellitus chcf insulin use: without chcf use Diabetes mellitus complication status: with kidney complications Diabetes mellitus complication detail: with chronic kidney disease Chronic kidney disease stage: on chronic dialysis (7) CAD (coronary artery disease) Qualifiers: Coronary Disease-Associated Artery/Lesion type: [place] artery [place] vs. transplanted heart: [place] heart Associated angina: without angina Qualified Code(s): I25.10 - Atherosclerotic heart disease of [place] coronary artery without angina pectoris (10) Obesity Qualifiers: Obesity type: due to excess calories Obesity classification: adult class 3 (BMI >= 40) Serious obesity comorbidity presence: with serious comorbidity Body mass index: BMI 40.0-44.9 Qualified Code(s): E66.01 - Morbid (severe) obesity due to excess calories; Z68.41 - Body mass index (BMI) 40.0-44.9, adult
[2018-09-08] MEDS: Insulin LISPRO 300 UNITS/3 ML VIAL SQ SCH ×4 (09:08→20:53)
[2018-09-08] MEDS: Lactulose Oral Soln 20 GM/30 ML UDC PO SCH ×3 (09:09→20:53)
[2018-09-08] MEDS: Loratadine 10 MG TABLET PO SCH (09:19)
[2018-09-08] MEDS: *HR* Amiodarone 200 MG TABLET PO SCH (09:19)
[2018-09-08] MEDS ORDERED: *HR* Heparin 10,000 UNIT/10 ML VIAL IV PRN (09:25)
[2018-09-08] MEDS ORDERED: 0.9 % Sodium Chloride 1,000 ML ONE (12:00)
--- NOTE | 2018-09-08 12:12 | Nephrology Progress Note ---
Date of Encounter: 09/08/18 Time of Encounter: 10:55 - Assessment and Plan (1) Acute kidney injury superimposed on CKD Status: Acute Recommend dialysis today for her third treatment, for clearance and fluid removal. Given the severe acute kidney injury on chronic kidney disease, he will need a third of the initial 3 dialysis treatments today. This dialysis treatment was ordered at higher flows including blood flow and dialysate flow, to mimic a standard/proper hemodialysis treatment. His next HD is tentatively planned for Thursday. Continue to follow a renal protective strategy, including avoiding nephrotoxic agents, and to follow strict I's and O's and daily weights. He remains very complex and required a high degree of medical decision making and evaluation and management of his labs, vitals, medication list, progress notes and previous imaging. (2) Anemia Status: Chronic Will start epo now that he is requiring HD. Goal hgb 10-11 Transfuse per parameters Qualifiers: Anemia type: due to chronic kidney disease Chronic kidney disease stage: stage 4 (severe) Qualified Code(s): N18.4 - Chronic kidney disease, stage 4 (severe); D63.1 - Anemia in chronic kidney disease (3) Acute on chronic systolic CHF (congestive heart failure), NYHA class 3 Status: Acute Contributing to his edema as well. He has had episodes of CRS documented previously as well (4) Cirrhosis Status: Chronic Continue his lactulose to help prevent hepatic encephalopathy Qualifiers: Hepatic cirrhosis type: unspecified hepatic cirrhosis Ascites presence: without ascites Qualified Code(s): K74.60 - Unspecified cirrhosis of liver Subjective Principal diagnosis: Renal failure Interval history: The patient was seen and examined earlier in the day. I updated the patient and his family regarding dialysis, dialysis chair time, and what to expect in taking care of a permacath. The patient did not affirm having active nausea, cramping, or chest pain. He affirmed feeling somewhat bloated in his abdomen and still very tired. Objective - Vital Signs Vital signs: Vital Signs Temp Pulse Resp BP Pulse Ox 09/08/18 12:05 94/45 09/08/18 11:50 108/39 09/08/18 11:35 116/62 09/08/18 11:20 152/69 09/08/18 11:05 160/78 09/08/18 10:50 148/33 09/08/18 10:35 104/27 09/08/18 10:20 139/38 09/08/18 10:05 117/89 09/08/18 09:50 17 121/90 09/08/18 07:03 105 18 100/37 98 09/08/18 04:13 98.2 F 72 16 100/56 94 09/08/18 00:12 73 16 106/45 98 09/07/18 20:44 98.4 F 71 16 115/60 94 09/07/18 19:43 100 09/07/18 16:32 85 18 09/07/18 13:41 15 103/38 09/07/18 13:10 132/61 09/07/18 12:55 135/86 09/07/18 12:40 139/65 09/07/18 12:25 111/59 Intake and Output 09/07/18 09/08/18 09/08/18 23:59 07:59 15:59 Intake Total 0 / 500 0 / 500 500 / 500 Output Total 0 / 2550 0 / 0 Balance 0 / -2050 0 / 500 500 / 500 Intake: Oral 0 / 0 0 / 0 0 / 0 Intake, Rinseback and Flushes 500 / 500 Output: Urine 0 / 50 0 / 0 Other: Stool Size Small Stool Consistency soft Stool Color Brown # Bowel Movements 1 Blood Glucose* 87 79 142 Hemodialysis Net Fluid Removed 1615 (mL) - General Appearance General appearance: Present: well-developed, well-nourished, appears started age , fatigue EENT: Present: ATNC, PERRL, mucous membranes moist Neck: Present: supple Respiratory: Present: clear Cardiology: Present: edema, regular rate, regular rhythm, normal S1, normal S2 Dialysis Vascular Access: Venous Catheter (right tunneled HD catheter) Gastrointestinal: Present: normoactive bowel sounds, no tenderness, no guarding, obese Integumentary: Present: warm and dry Neurologic: Present: no focal deficit, alert and oriented x3 Musculoskeletal: Present: no deformities, no erythema, no cyanosis Psychiatric: Present: mood/affect appropriate, cooperative - Lab 09/10/18 03:15 09/11/18 04:18 Most recent lab results 09/08/18 06:01 Calcium 9.0 Consult Discharge Plan - Plan Instructions: Heart Failure (DC), Atrial Fibrillation (DC), Anemia (GEN) Additional Instructions: Hold anticoagulation + ASA due to rectal bleeding. Continue Allopurinol at lower dose. Referrals: Trevor Horowitz MD [Primary Care Provider] - (Refferal made, physicans office will call patient to make an appointment. ) Prescriptions: Allopurinol [Zyloprim 100 MG] 100 mg PO DAILY #30 tablet
[2018-09-08] MEDS: Metoprolol XL (24 HR) Succ 25 MG TAB.ER.24H PO SCH (14:31)
[2018-09-08] MEDS: Isosorbide MONOnitrate (24 HR) 30 MG TAB.ER.24H PO SCH (17:15)
[2018-09-08] MEDS ORDERED: Ondansetron 4 MG/2 ML VIAL IVP PRN (17:55)
[2018-09-08] MEDS ORDERED: Ondansetron 4 MG/2 ML VIAL IVP SCH (18:00)
[2018-09-08] MEDS: Gabapentin 300 MG CAPSULE PO SCH (20:52)
[2018-09-09 05:50] LABS: Basophils # 0.1 K/mcL (0.0-0.2); Basophils % 0.8 %; Eosinophils # 0.2 K/mcL (0.0-0.6); Eosinophils % 3.1 %; Hematocrit 25.8 % (37.5-50.1); Hemoglobin 7.7 g/dL (12.9-16.9); Immature Granulocytes % 0.3 % (0-4); Lymphocytes # 0.9 K/mcL (0.6-4.6); Mean Corpuscular HGB Conc 29.8 g/dL (31.6-35.5); Mean Corpuscular Hemoglobin 29.1 pg (28.0-33.3); Mean Corpuscular Volume 97.4 fL (83.0-100.0); Mean Platelet Volume 9.9 fL (9.4-12.4); Monocytes # 0.8 K/mcL (0.0-1.3); Monocytes % 11.9 %; Neutrophils # 4.5 K/mcL (1.6-8.9); Platelet Count 118 K/mcL (140-400); Red Blood Count 2.65 M/mcL (4.19-5.50); Red Cell Distribution Width 20.6 % (11.5-14.5); Segmented Neutrophils % 69.9 %
[2018-09-09 06:06] LABS: Calcium 8.6 mg/dL (8.6-10.3)
--- NOTE | 2018-09-09 08:17 | Discharge Summary ---
Orders not resulted at time of discharge: Pending orders 09/05/18 06:54 Red Blood Cells [BBK] Stat Type and Screen [BBK] Stat 09/06/18 13:01 Albumin,Body Fluid Routine 09/09/18 05:24 Hepatitis B Core Ab Total AM 0400 09/10/18 04:00 BMP [Basic Metabolic Panel] AM 0400 Complete Blood Count [HEME] AM 0400 09/11/18 04:00 BMP [Basic Metabolic Panel] AM 0400 Date of Encounter: 09/09/18 - Discharge Diagnosis (1) Anemia Status: Chronic Qualifiers: Anemia type: due to chronic kidney disease Chronic kidney disease stage: on chronic dialysis Qualified Code(s): N18.6 - End stage renal disease; D63.1 - Anemia in chronic kidney disease; Z99.2 - Dependence on renal dialysis (2) Acute on chronic systolic CHF (congestive heart failure), NYHA class 3 Status: Acute (3) Cirrhosis Status: Chronic Qualifiers: Hepatic cirrhosis type: unspecified hepatic cirrhosis Ascites presence: without ascites Qualified Code(s): K74.60 - Unspecified cirrhosis of liver (4) Hypothyroidism Status: Chronic Qualifiers: Hypothyroidism type: acquired Qualified Code(s): E03.9 - Hypothyroidism, unspecified (5) Atrial fibrillation Status: Chronic Qualifiers: Atrial fibrillation type: chronic Qualified Code(s): I48.2 - Chronic atrial fibrillation (6) T2DM (type 2 diabetes mellitus) Status: Chronic Qualifiers: Diabetes mellitus custodial insulin use: without toby maker use Diabetes mellitus complication status: with kidney complications Diabetes mellitus complication detail: with chronic kidney disease Chronic kidney disease stage: on chronic dialysis (7) CAD (coronary artery disease) Status: Chronic Qualifiers: Coronary Disease-Associated Artery/Lesion type: [place] artery [place] vs. transplanted heart: [place] heart Associated angina: without angina Qualified Code(s): I25.10 - Atherosclerotic heart disease of [place] coronary artery without angina pectoris (8) Bright red blood per rectum Status: Resolved Hospital course: Mr. Purcell is a 63 year old male - Time Spent with Patient Total time spent providing and/or coordinating discharge services: - Discharge Medications Prescriptions: No Action Levothyroxine [Synthroid] 112 mcg PO 0630 L.acidoph,Paracasei, B.lactis [Probiotic] 1 cap PO BID Apixaban [Eliquis] 2.5 mg PO BID Isosorbide MONOnitrate (24 HR) [Imdur] 30 mg PO QPM Cholecalciferol (Vitamin D3) [Children's Vitamin D3] 3,000 unit PO DAILY Ascorbate Calcium [Vitamin C] 500 mg PO DAILY Multivitamin [Daily Multiple Vitamin] 1 each PO DAILY Mexiletine [Mexitil] 150 mg PO Q8HR Metoprolol Succinate [Toprol Xl] 12.5 mg PO DAILY Glimepiride [Amaryl] 1 mg PO DAILY PRN PRN Reason: BLOOD GLUCOSE GREATER THAN 250 Gabapentin [Neurontin] 300 mg PO TID Ferrous Sulfate [Iron] 325 mg PO BID Cyanocobalamin (Vitamin B-12) [Vitamin B12] 1,000 mcg PO DAILY Amiodarone [Cordarone] 200 mg PO DAILY Omeprazole [PriLOSEC] 40 mg PO DAILY #30 cap Atorvastatin Calcium [Lipitor] 40 mg PO HS Allopurinol [Zyloprim] 300 mg PO DAILY #0 Aspirin [Adult Aspirin] 81 mg PO DAILY Spironolactone [Aldactone] 50 mg PO DAILY #30 tablet Furosemide [Lasix] 40 mg PO BID #60 tablet Lactulose 30 gm PO TID Home Medications: Amiodarone [Cordarone] 200 mg PO DAILY 08/11/18 [History] Apixaban [Eliquis] 2.5 mg PO BID 08/11/18 [History] Ascorbate Calcium [Vitamin C] 500 mg PO DAILY 08/11/18 [History] Cholecalciferol (Vitamin D3) [Children's Vitamin D3] 3,000 unit PO DAILY 08/11/18 [History] Cyanocobalamin (Vitamin B-12) [Vitamin B12] 1,000 mcg PO DAILY 08/11/18 [History] Ferrous Sulfate [Iron] 325 mg PO BID 08/11/18 [History] Gabapentin [Neurontin] 300 mg PO TID 08/11/18 [History] Glimepiride [Amaryl] 1 mg PO DAILY PRN 08/11/18 [History] Isosorbide MONOnitrate (24 HR) [Imdur] 30 mg PO QPM 08/11/18 [History] L.acidoph,Paracasei, B.lactis [Probiotic] 1 cap PO BID 08/11/18 [History] Levothyroxine [Synthroid] 112 mcg PO 0630 08/11/18 [History] Metoprolol Succinate [Toprol Xl] 12.5 mg PO DAILY 08/11/18 [History] Mexiletine [Mexitil] 150 mg PO Q8HR 08/11/18 [History] Multivitamin [Daily Multiple Vitamin] 1 each PO DAILY 08/11/18 [History] Omeprazole [PriLOSEC] 40 mg PO DAILY #30 cap 08/14/18 [Rx] Atorvastatin Calcium [Lipitor] 40 mg PO HS 08/18/18 [History] Allopurinol [Zyloprim] 300 mg PO DAILY #0 08/23/18 [Rx] Aspirin [Adult Aspirin] 81 mg PO DAILY 08/30/18 [History] Furosemide [Lasix] 40 mg PO BID #60 tablet 09/01/18 [Rx] Spironolactone [Aldactone] 50 mg PO DAILY #30 tablet 09/01/18 [Rx] Lactulose 30 gm PO TID 09/06/18 [History] Allergies/Adverse Reactions: Allergy/AdvReac Type Severity Reaction Status Date / Time No Known Allergies Allergy Verified 09/05/18 01:46 Date of admission: 09/06/18 07:54 Primary care physician: Trevor Horowitz MD Consults: 09/05/18 03:51 Consult to Nephrology [CONS] Routine Consulting Provider: Kidney Lee Ann/DARIEL/NAT/JERSON Reason for Consult: mechelle on ckd, chf exacerbation Call Completed: No 09/05/18 04:45 Consult to Occupational Therapy [CONS] Routine Comment: Evaluate, develop and implement POC Reason for Consult: weakness Does patient have active BEDREST order?: No Is patient medically & hemodynamically stable?: Yes Patient assessed for mobility or mobilized this visit?: No Consult to Physical Therapy [CONS] Routine Comment: Evaluate, develop and implement POC Reason for Consult: weakness Does patient have active BEDREST order?: No Is patient medically & hemodynamically stable?: Yes Patient assessed for mobility or mobilized this visit?: No 09/05/18 05:19 Consult to Surgery [CONS] Routine Consulting Provider: Acute Care Surgery Reason for Consult: ?gi bleed Call Completed: Yes 09/05/18 13:19 Consult to Gastroenterology [CONS] Routine Consulting Provider: Gastroenterology Lee Ann Reason for Consult: Cirrhosis pt here with hemorrhoidal bleeding. Please assist with further managment. Would this pt benefit from TIPS? Call Completed: No 09/05/18 20:48 Consult to Interventional Radiology [CONS] Routine Consulting Provider: Radiology Interventional Cols Reason for Consult: Please evaluate for placement of a temporary HD catheter on Thursday. Thank you. Call Completed: No 09/06/18 07:45 Consult to Dialysis [CONS] ONCE 09/06/18 08:28 Consult to Interventional Radiology [CONS] Routine Consulting Provider: Radiology Interventional Cols Reason for Consult: Please eval for placement of a Permacath. Time Notified: 08:28 Call Completed: Yes 09/07/18 06:49 Consult to Dialysis [CONS] Stat 09/07/18 09:15 Consult to Vascular Manager [CONS] Routine Reason for SW Consult: new dialysis pt, will need set up with dialysis clinic on discharge 09/07/18 10:09 Consult to Vascular Manager [CONS] Routine Reason for SW Consult: Needs chair time at [facility] under Dr Petit name; transfer from Dr Barrientos 09/08/18 07:45 Consult to Dialysis [CONS] ONCE - Constitutional Vitals: Temp Pulse Resp BP Pulse Ox 98.4 F 72 17 102/44 98 09/09/18 07:33 09/09/18 07:33 09/09/18 07:33 09/09/18 07:33 09/09/18 07:33 General appearance: Present: cooperative, A&O X 3, morbidly obese - Patient Status Condition: Fair - Discharge Instructions Follow Up With: Trevor Horowitz MD [Primary Care Provider] -
[2018-09-09] MEDS: Lactulose Oral Soln 20 GM/30 ML UDC PO SCH ×3 (08:57→20:05)
[2018-09-09] MEDS: Loratadine 10 MG TABLET PO SCH (09:04)
[2018-09-09] MEDS: *HR* Amiodarone 200 MG TABLET PO SCH (09:04)
[2018-09-09] MEDS: Insulin LISPRO 300 UNITS/3 ML VIAL SQ SCH ×4 (09:05→20:06)
[2018-09-09] MEDS: Metoprolol XL (24 HR) Succ 25 MG TAB.ER.24H PO SCH (09:13)
[2018-09-09 10:57] LABS: Albumin 3.7 g/dL (3.5-5.7); Albumin/Globulin Ratio 1.3 (1.1-2.2); Bilirubin,Direct 0.6 mg/dL (0.0-0.2); Bilirubin,Indirect 0.8 mg/dL (0.0-1.2); Bilirubin,Total 1.4 mg/dL (0.3-1.0); Globulin 2.8 g/dL (2.4-3.5); Total Protein 6.5 g/dL (6.4-8.9)
--- NOTE | 2018-09-09 11:23 | Internal Med Progress Note ---
<Junior Corey - Last Filed: 09/09/18 15:01> Hospitalist Progress Note - Encounter Date of Encounter: 09/09/18 Time of Encounter: 08:50 - Subjective Interval History: Patient is resting comfortably in chair at bedside at time of examination. He says that he has no acute complaints today. He does continue to have some short ness of breath but otherwise is doing well. He denies any chest pains at time of examination. - Exam Vitals: Temp Pulse Resp BP Pulse Ox 98.4 F 69 17 102/44 98 09/09/18 07:33 09/09/18 11:09 09/09/18 11:09 09/09/18 07:33 09/09/18 11:09 Exam: eneral: No acute distress, resting, vitals reviewed HEENT: head normocephalic/atraumatic, EOMI, PERRL, sclera anicteric, moist mucus membranes Neck: Supple, no lymphadenopathy Cardio: RRR, no murmurs, +S1/S2, peripheral edema present though improved Pulm: Some fine crackles are noted on auscultation of the right lung base, however otherwise clear Abdomen: soft, nontender, BS+, no rigidity Extremities: BLE 2+ pitting edema, no cyanosis, DP pulses equal bilaterally Neuro: AAOx3, no focal deficit, no speech deficit, mentating well, CN II-XII grossly intact, moves all extremities spontaneously MSK: no visible deformities Skin: clean, dry, intact, no visible rashes Psych: Appropriate mood and affect. Answers questions appropriately. Cooperative with exam - Assessment and Plan (1) Acute on chronic systolic CHF (congestive heart failure), NYHA class 3 Current Visit: Yes Status: Acute Assessment and Plan: Improving. BNP 487 on admission. Most recent echo with LVEF 35%. Received albumin infusion. Appears to be diuresing well on HD. Recommendations for diuresis per nephrology. Cumulative I/O net -3620 mL - Continue to monitor I/O's, daily weight - Plan for hemodialysis tomorrow per nephrology (2) Acute kidney injury superimposed on CKD Current Visit: Yes Status: Acute Assessment and Plan: CRISTY on CKI stage V with progression requiring HD Tunneled HD placement by IR on 09/06. Pt to follow Dr. Glass as outpatient. Planning for chair time per social work Strict I/O monitoring, daily weight. (3) Cirrhosis Current Visit: Yes Status: Chronic Assessment and Plan: MELD 28. Paracentesis attempted but not sufficient fluid to drain, not performed. GI consulted and recommends continuing Lactulose and rifaximin. (4) Atrial fibrillation Current Visit: Yes Status: Chronic Assessment and Plan: Rate controlled. Holding AC. Continue home meds amiodarone, mexelitine, metoprolol. (5) Anemia Current Visit: Yes Status: Chronic Assessment and Plan: Hgb stable. Acute blood loss anemia from internal hemorrhoids as seen on EGD and colonoscopy 08/13/18. Holding ASA and AC. Received 1 units pRBCs. Nephro has started Epo with goal Hgb 10-11. (6) T2DM (type 2 diabetes mellitus) Current Visit: Yes Status: Chronic Assessment and Plan: Sliding scale insulin, ADA diet. (7) CAD (coronary artery disease) Current Visit: Yes Status: Chronic Assessment and Plan: Holding ASA. Continue lipitor. (8) Bright red blood per rectum Current Visit: Yes Status: Resolved Assessment and Plan: Resolved. No further BRBPR reported. Likely from internal hemorrhoids in setting of increased portal pressure d/t decompensation of liver cirrhosis. - Time Spent with Patient Total time spent is greater than 50% in coordination of care (as documented) at patient's floor/unit and/or counseling patient: Internal Medicine: Result - Labs CBC & Chem 7: 09/09/18 05:24 09/09/18 05:24 Labs: Short CBC 09/09/18 Range/Units 05:24 WBC 6.4 (4.3-11.1) K/mcL Hgb 7.7 L (12.9-16.9) g/dL Hct 25.8 L (37.5-50.1) % Plt Count 118 L (140-400) K/mcL Neutrophils # 4.5 (1.6-8.9) K/mcL BMP 09/09/18 05:24 Sodium 133 L Potassium 4.0 Chloride 96 L Carbon Dioxide 28 BUN 29 H Creatinine 3.76 H Glucose 150 H Calcium 8.6 Liver Function 09/09/18 Range/Units 05:24 Total Bilirubin 1.4 H (0.3-1.0) mg/dL Direct Bilirubin 0.6 H (0.0-0.2) mg/dL AST 58 H (13-39) Units/L ALT 22 (7-52) Units/L Alkaline Phosphatase 130 H (34-104) Units/L Albumin 3.7 (3.5-5.7) g/dL - ABG Interpretation ABG results: PT/INR, D-dimer PT 16.3 Seconds (9.4-12.1) H 09/05/18 02:26 Consult Discharge Plan - Plan Referrals: Trevor Horowitz MD [Primary Care Provider] - <Marek Mayo - Last Filed: 09/09/18 18:04> Hospitalist Progress Note - Encounter Date of Encounter: 09/09/18 - Exam Vitals: Temp Pulse Resp BP Pulse Ox 98.4 F 69 18 105/56 98 09/09/18 07:33 09/09/18 16:57 09/09/18 16:57 09/09/18 16:57 09/09/18 16:57 - Assessment and Plan (1) Anemia Current Visit: Yes Status: Chronic (2) Acute on chronic systolic CHF (congestive heart failure), NYHA class 3 Current Visit: Yes Status: Acute (3) Acute kidney injury superimposed on CKD Current Visit: Yes Status: Acute (4) Cirrhosis Current Visit: Yes Status: Chronic (5) Atrial fibrillation Current Visit: Yes Status: Chronic (6) T2DM (type 2 diabetes mellitus) Current Visit: Yes Status: Chronic (7) CAD (coronary artery disease) Current Visit: Yes Status: Chronic (8) Bright red blood per rectum Current Visit: Yes Status: Resolved - Time Spent with Patient Total time spent is greater than 50% in coordination of care (as documented) at patient's floor/unit and/or counseling patient: Internal Medicine: Result - Labs CBC & Chem 7: 09/09/18 05:24 09/09/18 05:24 Labs: Short CBC 09/09/18 Range/Units 05:24 WBC 6.4 (4.3-11.1) K/mcL Hgb 7.7 L (12.9-16.9) g/dL Hct 25.8 L (37.5-50.1) % Plt Count 118 L (140-400) K/mcL Neutrophils # 4.5 (1.6-8.9) K/mcL BMP 09/09/18 05:24 Sodium 133 L Potassium 4.0 Chloride 96 L Carbon Dioxide 28 BUN 29 H Creatinine 3.76 H Glucose 150 H Calcium 8.6 Liver Function 09/09/18 Range/Units 05:24 Total Bilirubin 1.4 H (0.3-1.0) mg/dL Direct Bilirubin 0.6 H (0.0-0.2) mg/dL AST 58 H (13-39) Units/L ALT 22 (7-52) Units/L Alkaline Phosphatase 130 H (34-104) Units/L Albumin 3.7 (3.5-5.7) g/dL - ABG Interpretation ABG results: PT/INR, D-dimer PT 16.3 Seconds (9.4-12.1) H 09/05/18 02:26 - Attending Attestation I examined this patient and my medical decision-making was reviewed with the Resident Physician on 09/09/18. I agree with the documented findings, disposition and treatment plan as described except to the extent set forth below. Mr Purcell is currently admitted for CHF and ESRD. He remains moderate to high risk due to potential for worsening clinical status. Mr Purcell is up eating lunch. No fever or chills. Tolerating dialysis. No GI issues. Exam alert Comfortable Mucus membranes dry Heart distant Lungs diminished Abd soft Edema present I/P 1. CHF exacerbation - improving 2. ESRD - tolerating dialysis Further diagnoses and plan as above. Awaiting SNF and dialysis chair time. <Junior Corey - Last Filed: 09/09/18 15:01> (3) Cirrhosis Qualifiers: Hepatic cirrhosis type: unspecified hepatic cirrhosis Ascites presence: without ascites Qualified Code(s): K74.60 - Unspecified cirrhosis of liver (4) Atrial fibrillation Qualifiers: Atrial fibrillation type: chronic Qualified Code(s): I48.2 - Chronic atrial fibrillation (5) Anemia Qualifiers: Anemia type: due to chronic kidney disease Chronic kidney disease stage: on chronic dialysis Qualified Code(s): N18.6 - End stage renal disease; D63.1 - Anemia in chronic kidney disease; Z99.2 - Dependence on renal dialysis (6) T2DM (type 2 diabetes mellitus) Qualifiers: Diabetes mellitus parts counterman insulin use: without half-way use Diabetes mellitus complication status: with kidney complications Diabetes mellitus complication detail: with chronic kidney disease Chronic kidney disease stage: on chronic dialysis Qualified Code(s): E11.22 - Type 2 diabetes mellitus with diabetic chronic kidney disease; N18.6 - End stage renal disease; Z99.2 - Dep endence on renal dialysis (7) CAD (coronary artery disease) Qualifiers: Coronary Disease-Associated Artery/Lesion type: [place] artery [place] vs. transplanted heart: [place] heart Associated angina: without angina Qualified Code(s): I25.10 - Atherosclerotic heart disease of [place] coronary artery without angina pectoris <Marek Mayo - Last Filed: 09/09/18 18:04> (1) Anemia Qualifiers: Anemia type: due to chronic kidney disease Chronic kidney disease stage: on chronic dialysis Qualified Code(s): N18.6 - End stage renal disease; D63.1 - Anemia in chronic kidney disease; Z99.2 - Dependence on renal dialysis (4) Cirrhosis Qualifiers: Hepatic cirrhosis type: unspecified hepatic cirrhosis Ascites presence: without ascites Qualified Code(s): K74.60 - Unspecified cirrhosis of liver (5) Atrial fibrillation Qualifiers: Atrial fibrillation type: chronic Qualified Code(s): I48.2 - Chronic atrial fibrillation (6) T2DM (type 2 diabetes mellitus) Qualifiers: Diabetes mellitus half-way insulin use: without parts counterman use Diabetes mellitus complication status: with kidney complications Diabetes mellitus complication detail: with chronic kidney disease Chronic kidney disease stage: on chronic dialysis Qualified Code(s): E11.22 - Type 2 diabetes mellitus with diabetic chronic kidney disease; N18.6 - End stage renal disease; Z99.2 - Dependence on renal dialysis (7) CAD (coronary artery disease) Qualifiers: Coronary Disease-Associated Artery/Lesion type: [place] artery [place] vs. transplanted heart: [place] heart Associated angina: without angina Qualified Code(s): I25.10 - Atherosclerotic heart disease of [place] coronary artery without angina pectoris
--- NOTE | 2018-09-09 13:03 | Nephrology Progress Note ---
Date of Encounter: 09/09/18 Time of Encounter: 09:50 - Assessment and Plan (1) Acute kidney injury superimposed on CKD Status: Acute Last completed HD yesterday and so it's not needed today. He has been approved for a dialysis chair time at [facility] on with the next opening on Thursday, according to the . Therefore, I will plan to tentatively dialyze him on Thursday and convert him on Thursday to TTS, after which he should be able to be discharged. I discussed this in detail with his family, who thanked me for updated them. My colleague Dr. Reid will be on-call/on-service starting tomorrow. (2) Anemia Status: Chronic Will start epo now that he is requiring HD. Goal hgb 10-11 Transfuse per parameters Qualifiers: Anemia type: due to chronic kidney disease Chronic kidney disease stage: stage 4 (severe) Qualified Code(s): N18.4 - Chronic kidney disease, stage 4 (severe); D63.1 - Anemia in chronic kidney disease (3) Acute on chronic systolic CHF (congestive heart failure), NYHA class 3 Status: Acute Contributing to his edema as well. He has had episodes of CRS documented previously as well (4) Hyponatremia Status: Acute Hypervolemic hyponatremia in the setting of CHF and cirrhosis of the liver. Continue free water fluid restriction and intermittent dialysis for clearance and fluid removal. (5) Cirrhosis Status: Chronic Qualifiers: Hepatic cirrhosis type: unspecified hepatic cirrhosis Ascites presence: without ascites Qualified Code(s): K74.60 - Unspecified cirrhosis of liver Subjective Principal diagnosis: Renal failure Interval history: The patient was seen and examined earlier in the day. The patient reported feeling still somewhat tired, but not as fatigued as when he originally was admitted. He did not affirm active nausea or vomiting. He says that he is continuing to take the lactulose. I also updated the patient's PCP in the clinic regarding his inpatient care updates (the pt was originally scheduled to see Dr. Horowitz this day in the clinic). I also called the outpatient [facility] dialysis unit and gave verbal orders for his dialysis treatments. Objective - Vital Signs Vital signs: Vital Signs Temp Pulse Resp BP Pulse Ox 09/09/18 11:09 69 17 98 09/09/18 07:33 98.4 F 72 17 102/44 98 09/09/18 03:37 97.5 F L 71 14 117/53 98 09/09/18 00:13 98.1 F 74 14 110/54 96 09/08/18 20:56 98 09/08/18 20:10 98.4 F 69 17 110/58 99 09/08/18 16:52 81 17 97/55 94 09/08/18 14:15 70 17 107/58 09/08/18 13:50 16 130/108 09/08/18 13:20 94/49 09/08/18 13:05 94/65 Intake and Output 09/08/18 09/09/18 09/09/18 23:59 07:59 15:59 Intake Total 0 / 500 0 / 120 120 / 120 Output Total 0 / 2500 0 / 0 Balance 0 / -2000 0 / 120 120 / 120 Intake: Oral 0 / 0 0 / 120 120 / 120 Output: Urine 0 / 0 0 / 0 Other: Meal Breakfast Percent of Meal Consumed 100% Blood Glucose* 103 194 301 - General Appearance Exam: General appearance: Present: well-developed, well-nourished, appears started age, obese EENT: Present: ATNC, PERRL, mucous membranes moist Additional Comments: Right neck scar, no JVD Respiratory: Present: clear ( But diminished breath sounds bilaterally) Cardiology: Present: edema (1+ pretibial pitting edema b/l), regular rate, regular rhythm Additional Comments: Right sided Permacath with dressing clean/dry/intact Gastrointestinal: Present: normoactive bowel sounds, no guarding, obese Integumentary: Present: warm and dry Neurologic: Present: no focal deficit, asterixis Musculoskeletal: Present: no erythema, no clubbing Psychiatric: Present: mood/affect appropriate, cooperative - Lab 09/10/18 03:15 09/11/18 04:18 Most recent lab results 09/09/18 05:24 Calcium 8.6 Consult Discharge Plan - Plan Instructions: Heart Failure (DC), Atrial Fibrillation (DC), Anemia (GEN) Additional Instructions: Hold anticoagulation + ASA due to rectal bleeding. Continue Allopurinol at lower dose. Referrals: Trevor Horowitz MD [Primary Care Provider] - (Refferal made, physicans office will call patient to make an appointment. ) Prescriptions: Allopurinol [Zyloprim 100 MG] 100 mg PO DAILY #30 tablet
[2018-09-09] MEDS: Isosorbide MONOnitrate (24 HR) 30 MG TAB.ER.24H PO SCH (17:42)
[2018-09-09] MEDS: Gabapentin 300 MG CAPSULE PO SCH (20:05)
[2018-09-10 04:31] LABS: Basophils % 0.6 %; Eosinophils # 0.2 K/mcL (0.0-0.6); Eosinophils % 3.2 %; Hematocrit 26.7 % (37.5-50.1); Hemoglobin 8.1 g/dL (12.9-16.9); Immature Granulocytes % 0.4 % (0-4); Lymphocytes # 1.1 K/mcL (0.6-4.6); Lymphocytes % 14.7 %; Mean Corpuscular HGB Conc 30.3 g/dL (31.6-35.5); Mean Corpuscular Hemoglobin 29.5 pg (28.0-33.3); Mean Corpuscular Volume 97.1 fL (83.0-100.0); Mean Platelet Volume 10.6 fL (9.4-12.4); Monocytes # 0.8 K/mcL (0.0-1.3); Monocytes % 11.5 %; Platelet Count 137 K/mcL (140-400); Red Blood Count 2.75 M/mcL (4.19-5.50); Red Cell Distribution Width 20.5 % (11.5-14.5); Segmented Neutrophils % 69.6 %
[2018-09-10] MEDS ORDERED: 0.9 % Sodium Chloride 250 ML IVC PRN (06:37)
[2018-09-10] MEDS: Loratadine 10 MG TABLET PO SCH (07:53)
[2018-09-10] MEDS: Insulin LISPRO 300 UNITS/3 ML VIAL SQ SCH ×3 (07:54→17:16)
[2018-09-10] MEDS: *HR* Amiodarone 200 MG TABLET PO SCH (07:54)
[2018-09-10] MEDS ORDERED: *HR* Heparin 10,000 UNIT/10 ML VIAL IV PRN (07:54)
[2018-09-10] MEDS: Lactulose Oral Soln 20 GM/30 ML UDC PO SCH ×3 (12:56→21:16)
[2018-09-10] MEDS: Metoprolol XL (24 HR) Succ 25 MG TAB.ER.24H PO SCH (12:59)
--- NOTE | 2018-09-10 16:35 | Internal Med Progress Note ---
<Marek Mayo - Last Filed: 09/10/18 17:32> Hospitalist Progress Note - Encounter Date of Encounter: 09/10/18 - Exam Vitals: Temp Pulse Resp BP Pulse Ox 97.9 F 72 15 107/57 97 09/10/18 06:48 09/10/18 16:06 09/10/18 12:15 09/10/18 16:06 09/10/18 04:57 - Assessment and Plan (1) Anemia Current Visit: Yes Status: Chronic (2) Acute on chronic systolic CHF (congestive heart failure), NYHA class 3 Current Visit: Yes Status: Acute (3) Acute kidney injury superimposed on CKD Current Visit: Yes Status: Acute (4) Cirrhosis Current Visit: Yes Status: Chronic (5) Atrial fibrillation Current Visit: Yes Status: Chronic (6) T2DM (type 2 diabetes mellitus) Current Visit: Yes Status: Chronic (7) CAD (coronary artery disease) Current Visit: Yes Status: Chronic (8) Bright red blood per rectum Current Visit: Yes Status: Resolved - Time Spent with Patient Total time spent is greater than 50% in coordination of care (as documented) at patient's floor/unit and/or counseling patient: Internal Medicine: Result - Labs CBC & Chem 7: 09/10/18 03:15 09/10/18 03:15 Labs: Short CBC 09/10/18 Range/Units 03:15 WBC 7.2 (4.3-11.1) K/mcL Hgb 8.1 L (12.9-16.9) g/dL Hct 26.7 L (37.5-50.1) % Plt Count 137 L (140-400) K/mcL Neutrophils # 5.0 (1.6-8.9) K/mcL BMP 09/10/18 03:15 Sodium 132 L Potassium 5.0 Chloride 93 L Carbon Dioxide 26 BUN 40 H Creatinine 5.29 H Glucose 102 Calcium 9.0 - ABG Interpretation ABG results: PT/INR, D-dimer PT 16.3 Seconds (9.4-12.1) H 09/05/18 02:26 Consult Discharge Plan - Plan Referrals: Trevor Horowitz MD [Primary Care Provider] - - Attending Attestation I examined this patient and my medical decision-making was reviewed with the Resident Physician on 09/10/18. I agree with the documented findings, disposition and treatment plan as described except to the extent set forth below. Mr Purcell is currently admitted for acute exac CHF and ESRD. He remains moderate risk at this time. Mr Purcell is doing OK. No new issues overnight. To have UF today. Exam alert Comfortable up in chair Mucus membranes dry Not tachycardic No wheeze Edema persists I/P 1. Exac CHF - improving with dialysis 3. ESRD Anticipate d/c to SNF after dialysis tomorrow. <Junior Corey - Last Filed: 09/10/18 18:25> Hospitalist Progress Note - Encounter Date of Encounter: 09/10/18 Time of Encounter: 12:30 - Subjective Interval History: Patient is resting in chair at bedside at time of examination. He has no acute complaints at this time. He says that overall he is feeling well and he has had hemodialysis today. He says that he had no complications during this session. - Exam Vitals: Temp Pulse Resp BP Pulse Ox 97.9 F 72 15 107/57 97 09/10/18 06:48 09/10/18 16:06 09/10/18 12:15 09/10/18 16:06 09/10/18 04:57 Exam: eneral: No acute distress, resting, vitals reviewed HEENT: head normocephalic/atraumatic, EOMI, PERRL, sclera anicteric, moist mucus membranes Neck: Supple, no lymphadenopathy Cardio: RRR, no murmurs, +S1/S2, peripheral edema present though improved Pulm: Some fine crackles are noted on auscultation of the right lung base, however otherwise clear Abdomen: soft, nontender, BS+, no rigidity Extremities: BLE 2+ pitting edema, no cyanosis, DP pulses equal bilaterally Neuro: AAOx3, no focal deficit, no speech deficit, mentating well, CN II-XII grossly intact, moves all extremities spontaneously MSK: no visible deformities Skin: clean, dry, intact, no visible rashes Psych: Appropriate mood and affect. Answers questions appropriately. Cooperative with exam - Assessment and Plan (1) Acute on chronic systolic CHF (congestive heart failure), NYHA class 3 Current Visit: Yes Status: Acute Assessment and Plan: Improving. BNP 487 on admission. Most recent echo with LVEF 35%. Received albumin infusion. Appears to be diuresing well on HD. Recommendations for diuresis per nephrology. Cumulative I/O net -3740 mL - Continue to monitor I/O's, daily weight - Plan for hemodialysis tomorrow per nephrology (2) Acute kidney injury superimposed on CKD Current Visit: Yes Status: Acute Assessment and Plan: CRISTY on CKI stage V with progression requiring HD Tunneled HD placement by IR on 09/06. Pt to follow Dr. Glass as outpatient. Planning for chair time per social work Strict I/O monitoring, daily weight. (3) Cirrhosis Current Visit: Yes Status: Chronic Assessment and Plan: MELD 28. Paracentesis attempted but not sufficient fluid to drain, not performed. GI consulted and recommends continuing Lactulose and rifaximin. (4) Atrial fibrillation Current Visit: Yes Status: Chronic Assessment and Plan: Rate controlled. Holding AC. Continue home meds amiodarone, mexelitine, meto prolol. (5) Anemia Current Visit: Yes Status: Chronic Assessment and Plan: Hgb stable. Acute blood loss anemia from internal hemorrhoids as seen on EGD and colonoscopy 08/13/18. Holding ASA and AC. Received 1 units pRBCs. Nephro has started Epo with goal Hgb 10-11. (6) T2DM (type 2 diabetes mellitus) Current Visit: Yes Status: Chronic Assessment and Plan: Sliding scale insulin, ADA diet. (7) CAD (coronary artery disease) Current Visit: Yes Status: Chronic Assessment and Plan: Holding ASA. Continue lipitor. (8) Bright red blood per rectum Current Visit: Yes Status: Resolved Assessment and Plan: Resolved. No further BRBPR reported. Likely from internal hemorrhoids in setting of increased portal pressure d/t decompensation of liver cirrhosis. - Time Spent with Patient Total time spent is greater than 50% in coordination of care (as documented) at patient's floor/unit and/or counseling patient: Internal Medicine: Result - Labs CBC & Chem 7: 09/10/18 03:15 09/10/18 03:15 Labs: Short CBC 09/10/18 Range/Units 03:15 WBC 7.2 (4.3-11.1) K/mcL Hgb 8.1 L (12.9-16.9) g/dL Hct 26.7 L (37.5-50.1) % Plt Count 137 L (140-400) K/mcL Neutrophils # 5.0 (1.6-8.9) K/mcL BMP 09/10/18 03:15 Sodium 132 L Potassium 5.0 Chloride 93 L Carbon Dioxide 26 BUN 40 H Creatinine 5.29 H Glucose 102 Calcium 9.0 - ABG Interpretation ABG results: PT/INR, D-dimer PT 16.3 Seconds (9.4-12.1) H 09/05/18 02:26 ___ <Marek Mayo - Last Filed: 09/10/18 17:32> (1) Anemia Qualifiers: Anemia type: due to chronic kidney disease Chronic kidney disease stage: on chronic dialysis Qualified Code(s): N18.6 - End stage renal disease; D63.1 - Anemia in chronic kidney disease; Z99.2 - Dependence on renal dialysis (4) Cirrhosis Qualifiers: Hepatic cirrhosis type: unspecified hepatic cirrhosis Ascites presence: without ascites Qualified Code(s): K74.60 - Unspecified cirrhosis of liver (5) Atrial fibrillation Qualifiers: Atrial fibrillation type: chronic Qualified Code(s): I48.2 - Chronic atrial fibrillation (6) T2DM (type 2 diabetes mellitus) Qualifiers: Diabetes mellitus nursing home insulin use: without terminal gauger use Diabetes mellitus complication status: with kidney complications Diabetes mellitus complication detail: with chronic kidney disease Chronic kidney disease stage: on chronic dialysis Qualified Code(s): E11.22 - Type 2 diabetes mellitus with diabetic chronic kidney disease; N18.6 - End stage renal disease; Z99.2 - Dependence on renal dialysis (7) CAD (coronary artery disease) Qualifiers: Coronary Disease-Associated Artery/Lesion type: [place] artery [place] vs. transplanted heart: [place] heart Associated angina: without angina Qualified Code(s): I25.10 - Atherosclerotic heart disease of [place] coronary artery without angina pectoris <Junior Corey - Last Filed: 09/10/18 18:25> (3) Cirrhosis Qualifiers: Hepatic cirrhosis type: unspecified hepatic cirrhosis Ascites presence: without ascites Qualified Code(s): K74.60 - Unspecified cirrhosis of liver (4) Atrial fibrillation Qualifiers: Atrial fibrillation type: chronic Qualified Code(s): I48.2 - Chronic atrial fibrillation (5) Anemia Qualifiers: Anemia type: due to chronic kidney disease Chronic kidney disease stage: on chronic dialysis Qualified Code(s): N18.6 - End stage renal disease; D63.1 - Anemia in chronic kidney disease; Z99.2 - Dependence on renal dialysis (6) T2DM (type 2 diabetes mellitus) Qualifiers: Diabetes mellitus terminal gauger insulin use: without terminal gauger use Diabetes me llitus complication status: with kidney complications Diabetes mellitus co mplication detail: with chronic kidney disease Chronic kidney disease stage: on chronic dialysis Qualified Code(s): E11.22 - Type 2 diabetes mellitus with diabetic chronic kidney disease; N18.6 - End stage renal disease; Z99.2 - Dependence on renal dialysis (7) CAD (coronary artery disease) Qualifiers: Coronary Disease-Associated Artery/Lesion type: [place] artery [place] vs. transplanted heart: [place] heart Associated angina: without angina Qualified Code(s): I25.10 - Atherosclerotic heart disease of [place] coronary artery without angina pectoris
[2018-09-10] MEDS: Isosorbide MONOnitrate (24 HR) 30 MG TAB.ER.24H PO SCH (17:17)
[2018-09-10] MEDS: Gabapentin 300 MG CAPSULE PO SCH (21:15)
--- NOTE | 2018-09-10 23:14 | Nephrology Progress Note ---
Date of Encounter: 09/10/18 Time of Encounter: 12:00 - Assessment and Plan (1) Anemia Current Visit: Yes Status: Chronic Qualifiers: Anemia type: due to chronic kidney disease Chronic kidney disease stage: on chronic dialysis Qualified Code(s): N18.6 - End stage renal disease; D63.1 - Anemia in chronic kidney disease; Z99.2 - Dependence on renal dialysis (2) Acute on chronic systolic CHF (congestive heart failure), NYHA class 3 Current Visit: Yes Status: Acute (3) Acute kidney injury superimposed on CKD Current Visit: Yes Status: Acute Subjective Principal diagnosis: Renal failure Interval history: Interim noted, pt seen and examined on HD Objective - Vital Signs Vital signs: Vital Signs Temp Pulse Resp BP Pulse Ox 09/10/18 19:20 97.7 F 116 18 105/58 09/10/18 16:06 72 107/57 09/10/18 12:33 77 112/76 09/10/18 12:15 15 118/88 09/10/18 11:50 93/74 09/10/18 11:35 102/50 09/10/18 11:20 93/57 09/10/18 11:05 96/42 09/10/18 10:50 93/52 09/10/18 10:35 102/57 09/10/18 10:20 96/62 09/10/18 10:05 101/52 09/10/18 09:50 107/48 09/10/18 09:35 91/52 09/10/18 09:20 105/44 09/10/18 09:05 97/42 09/10/18 08:50 100/31 09/10/18 08:35 98/35 09/10/18 08:20 18 94/45 09/10/18 06:48 97.9 F 75 104/62 09/10/18 04:57 98.1 F 70 18 107/55 97 09/09/18 23:45 98.1 F 71 22 99/45 91 Intake and Output 09/10/18 09/10/18 09/10/18 07:59 15:59 23:59 Intake Total 200 / 940 740 / 940 0 / 940 Output Total 1999 / 1999 Balance 200 / -1060 -1260 / -1060 0 / -1060 Intake: Oral 200 / 440 240 / 440 0 / 440 Intake, Rinseback and Flushes 500 / 500 Output: Urine 0 / 0 0 / 0 Total Dialysis (HD) Output 1999 Other: Meal Lunch Percent of Meal Consumed 100% Stool Size Small Stool Characteristics Normal for Patient Stool Color Brown # Voids 1 # Bowel Movements 1 Blood Glucose* 185 103 174 Hemodialysis Net Fluid Removed 1500 (mL) - Lab 09/10/18 03:15 09/10/18 03:15 Consult Discharge Plan - Plan Referrals: Trevor Horowitz MD [Primary Care Provider] -
[2018-09-11] MEDS: Insulin LISPRO 300 UNITS/3 ML VIAL SQ SCH ×3 (04:09→13:49)
[2018-09-11] MEDS: Acetaminophen 325 MG TABLET PO PRN (04:10)
[2018-09-11 05:06] LABS: Calcium 8.7 mg/dL (8.6-10.3); Potassium 4.4 mEq/L (3.5-5.1)
[2018-09-11] MEDS ORDERED: 0.9 % Sodium Chloride 250 ML IVC PRN (08:15)
[2018-09-11] MEDS ORDERED: *HR* Heparin 10,000 UNIT/10 ML VIAL IV PRN ×2 (08:15)
--- NOTE | 2018-09-11 08:33 | Discharge Summary ---
<Junior Corey - Last Filed: 09/11/18 12:09> - NOTES TO OUTPATIENT PROVIDER Notes to Outpatient Provider: Admitted with CH exacerbation, CRISTY now HD dependent. Plan for TTS HD, D/c to SNF. Held ASA and Eliquis due to bleeding hemorrhoids. Continue after surg eval at your discretion. Orders not resulted at time of discharge: Pending orders 09/09/18 05:24 Hepatitis B Core Ab Total AM 0400 Date of Encounter: 09/11/18 Time of Encounter: 10:20 - Discharge Diagnosis (1) Acute kidney injury superimposed on CKD Priority: Primary Status: Acute (2) Acute on chronic systolic CHF (congestive heart failure), NYHA class 3 Priority: Primary Status: Acute (3) Cirrhosis Priority: Secondary Status: Chronic Qualifiers: Hepatic cirrhosis type: unspecified hepatic cirrhosis Ascites presence: without ascites Qualified Code(s): K74.60 - Unspecified cirrhosis of liver (4) Atrial fibrillation Priority: Secondary Status: Chronic Qualifiers: Atrial fibrillation type: chronic Qualified Code(s): I48.2 - Chronic atrial fibrillation (5) Anemia Priority: Secondary Status: Chronic Qualifiers: Anemia type: due to chronic kidney disease Chronic kidney disease stage: on chronic dialysis Qualified Code(s): N18.6 - End stage renal disease; D63.1 - Anemia in chronic kidney disease; Z99.2 - Dependence on renal dialysis (6) T2DM (type 2 diabetes mellitus) Priority: Secondary Status: Chronic Qualifiers: Diabetes mellitus exterminator helper insulin use: without exterminator helper use Diabetes mellitus complication status: with kidney complications Diabetes mellitus complication detail: with chronic kidney disease Chronic kidney disease stage: on chronic dialysis Qualified Code(s): E11.22 - Type 2 diabetes mellitus with diabetic chronic kidney disease; N18.6 - End stage renal disease; Z99.2 - Dependence on renal dialysis (7) CAD (coronary artery disease) Priority: Secondary Status: Chronic Qualifiers: Coronary Disease-Associated Artery/Lesion type: [place] artery [place] vs. transplanted heart: [place] heart Associated angina: without angina Qualified Code(s): I25.10 - Atherosclerotic heart disease of [place] coronary artery without angina pectoris (8) Bright red blood per rectum Priority: Secondary Status: Resolved Hospital course: Mr. Purcell is a 63 year old male with history of CHF, CKD, cirrhosis, hypertension, hypothyroidism who was recently hospitalized for hepatorenal syndrome and acute on chronic systolic heart failure with CRISTY and discharged 09/01/18 presented back to the hospital due to anuric CRISTY with acute decompensated heart failure. The patient had previously been discharged on Lasix however on presentation he said that he had not been urinating and additionally was having bright red blood per rectum secondary to internal hemorrhoids which had previously been seen in evaluated by general surgery. The patient was evaluated by nephrology and a determination was made to begin hemodialysis as he no longer is making urine and did have acute fluid overload. Patient did undergo placement of a tunneled HD permanent catheter and has had progressive improvement of fluid status with initiation of HD. He will be discharged to SNF for rehab with TTS HD, and will follow-up with [facility]. Anti-coagulation will be held at this time pending evaluation for outpatient hemorrhoidectomy. Discharge discussed with: patient, family, nurse, social work, case management, specialty development consultant - Time Spent with Patient Total time spent providing and/or coordinating discharge services: - Discharge Medications Prescriptions: New Loratadine [Claritin] 10 mg PO DAILY tablet Gabapentin [Neurontin] 300 mg PO HS capsule Rifaximin [Xifaxan] 550 mg PO BID tablet Allopurinol [Zyloprim 100 MG] 100 mg PO DAILY #30 tablet Continued Levothyroxine [Synthroid] 112 mcg PO 0630 L.acidoph,Paracasei, B.lactis [Probiotic] 1 cap PO BID Isosorbide MONOnitrate (24 HR) [Imdur] 30 mg PO QPM Cholecalciferol (Vitamin D3) [Children's Vitamin D3] 3,000 unit PO DAILY Ascorbate Calcium [Vitamin C] 500 mg PO DAILY Multivitamin [Daily Multiple Vitamin] 1 each PO DAILY Mexiletine [Mexitil] 150 mg PO Q8HR Metoprolol Succinate [Toprol Xl] 12.5 mg PO DAILY Glimepiride [Amaryl] 1 mg PO DAILY PRN PRN Reason: BLOOD GLUCOSE GREATER THAN 250 Ferrous Sulfate [Iron] 325 mg PO BID Cyanocobalamin (Vitamin B-12) [Vitamin B12] 1,000 mcg PO DAILY Amiodarone [Cordarone] 200 mg PO DAILY Omeprazole [PriLOSEC] 40 mg PO DAILY #30 cap Atorvastatin Calcium [Lipitor] 40 mg PO HS Spironolactone [Aldactone] 50 mg PO DAILY #30 tablet Lactulose 30 gm PO TID Discontinued Apixaban [Eliquis] 2.5 mg PO BID Gabapentin [Neurontin] 300 mg PO TID Allopurinol [Zyloprim] 300 mg PO DAILY #0 Aspirin [Adult Aspirin] 81 mg PO DAILY Furosemide [Lasix] 40 mg PO BID #60 tablet Home Medications: Amiodarone [Cordarone] 200 mg PO DAILY 08/11/18 [History] Ascorbate Calcium [Vitamin C] 500 mg PO DAILY 08/11/18 [History] Cholecalciferol (Vitamin D3) [Children's Vitamin D3] 3,000 unit PO DAILY 08/11/18 [History] Cyanocobalamin (Vitamin B-12) [Vitamin B12] 1,000 mcg PO DAILY 08/11/18 [History] Ferrous Sulfate [Iron] 325 mg PO BID 08/11/18 [History] Glimepiride [Amaryl] 1 mg PO DAILY PRN 08/11/18 [History] Isosorbide MONOnitrate (24 HR) [Imdur] 30 mg PO QPM 08/11/18 [History] L.acidoph,Paracasei, B.lactis [Probiotic] 1 cap PO BID 08/11/18 [History] Levothyroxine [Synthroid] 112 mcg PO 0630 08/11/18 [History] Metoprolol Succinate [Toprol Xl] 12.5 mg PO DAILY 08/11/18 [History] Mexiletine [Mexitil] 150 mg PO Q8HR 08/11/18 [History] Multivitamin [Daily Multiple Vitamin] 1 each PO DAILY 08/11/18 [History] Omeprazole [PriLOSEC] 40 mg PO DAILY #30 cap 08/14/18 [Rx] Atorvastatin Calcium [Lipitor] 40 mg PO HS 08/18/18 [History] Spironolactone [Aldactone] 50 mg PO DAILY #30 tablet 09/01/18 [Rx] Lactulose 30 gm PO TID 09/06/18 [History] Allopurinol [Zyloprim 100 MG] 100 mg PO DAILY #30 tablet 09/11/18 [Rx] Gabapentin [Neurontin] 300 mg PO HS capsule 09/11/18 [Rx] Loratadine [Claritin] 10 mg PO DAILY tablet 09/11/18 [Rx] Rifaximin [Xifaxan] 550 mg PO BID tablet 09/11/18 [Rx] Allergies/Adverse Reactions: Allergy/AdvReac Type Severity Reaction Status Date / Time No Known Allergies Allergy Verified 09/05/18 01:46 Date of admission: 09/06/18 07:54 Primary care physician: Trevor Horowitz MD Consults: 09/05/18 03:51 Consult to Nephrology [CONS] Routine Consulting Provider: Kidney [facility]/DARIEL/NAT/JERSON Reason for Consult: cristy on ckd, chf exacerbation Call Completed: No 09/05/18 04:45 Consult to Occupational Therapy [CONS] Routine Comment: Evaluate, develop and implement POC Reason for Consult: weakness Does patient have active BEDREST order?: No Is patient medically & hemodynamically stable?: Yes Patient assessed for mobility or mobilized this visit?: No Consult to Physical Therapy [CONS] Routine Comment: Evaluate, develop and implement POC Reason for Consult: weakness Does patient have active BEDREST order?: No Is patient medically & hemodynamically stable?: Yes Patient assessed for mobility or mobilized this visit?: No 09/05/18 05:19 Consult to Surgery [CONS] Routine Consulting Provider: Acute Care Surgery Reason for Consult: ?gi bleed Call Completed: Yes 09/05/18 13:19 Consult to Gastroenterology [CONS] Routine Consulting Provider: Gastroenterology [facility] Reason for Consult: Cirrhosis pt here with hemorrhoidal bleeding. Please assist with further managment. Would this pt benefit from TIPS? Call Completed: No 09/05/18 20:48 Consult to Interventional Radiology [CONS] Routine Consulting Provider: Radiology Interventional Cols Reason for Consult: Please evaluate for placement of a temporary HD catheter on Thursday. Thank you. Call Completed: No 09/06/18 07:45 Consult to Dialysis [CONS] ONCE 09/06/18 08:28 Consult to Interventional Radiology [CONS] Routine Consulting Provider: Radiology Interventional Cols Reason for Consult: Please eval for placement of a Permacath. Time Notified: 08:28 Call Completed: Yes 09/07/18 06:49 Consult to Dialysis [CONS] Stat 09/07/18 09:15 Consult to Kiln Puller [CONS] Routine Reason for SW Consult: new dialysis pt, will need set up with dialysis clinic on discharge 09/07/18 10:09 Consult to Kiln Puller [CONS] Routine Reason for SW Consult: Needs chair time at [facility] under Dr Petit name; transfer from Dr Barrientos 09/08/18 07:45 Consult to Dialysis [CONS] ONCE 09/10/18 06:45 Consult to Dialysis [CONS] ONCE 09/11/18 08:15 Consult to Dialysis [CONS] ONCE Discharging clinician: Junior Corey Anticipated date of discharge: 09/11/18 - Constitutional Vitals: Temp Pulse Resp BP Pulse Ox 98.4 F 71 16 92/47 87 09/11/18 07:06 09/11/18 07:06 09/11/18 07:06 09/11/18 07:06 09/11/18 00:57 General appearance: Present: cooperative, A&O X 3, morbidly obese Exam: General: No acute distress, resting, vitals reviewed HEENT: head normocephalic/atraumatic, EOMI, PERRL, sclera anicteric, moist mucus membranes Neck: Supple, no lymphadenopathy Cardio: RRR, no murmurs, +S1/S2, peripheral edema present though improved Pulm: Some fine crackles are noted on auscultation of the right lung base, however otherwise clear Abdomen: soft, nontender, BS+, no rigidity Extremities: BLE 1+ pitting edema, no cyanosis, DP pulses equal bilaterally Neuro: AAOx3, no focal deficit, no speech deficit, mentating well, CN II-XII grossly intact, moves all extremities spontaneously MSK: no visible deformities Skin: clean, dry, intact, Erythema present on upper chest within clearly marked borders. Psych: Appropriate mood and affect. Answers questions appropriately. Cooperative with exam - Patient Status Disposition: Transfer SNF Condition: Fair Functional capacity at discharge: uses cane/walker Overall status at discharge: patient is not back to baseline - Discharge Instructions Instructions: Heart Failure (DC), Atrial Fibrillation (DC), Anemia (GEN) Follow Up With: Trevor Horowitz MD [Primary Care Provider] - (Refferal made, physicans office will call patient to make an appointment. ) Additional Instructions: Hold anticoagulation + ASA due to rectal bleeding. Continue Allopurinol at lower dose. - Diet and Activity Activity: as per physical therapy, increase activity as tolerated Diet: diabetic diet, low salt diet <Marek Mayo - Last Filed: 09/11/18 19:30> Date of Encounter: 09/11/18 - Discharge Diagnosis (1) Anemia Status: Chronic Qualifiers: Anemia type: due to chronic kidney disease Chronic kidney disease stage: on chronic dialysis Qualified Code(s): N18.6 - End stage renal disease; D63.1 - Anemia in chronic kidney disease; Z99.2 - Dependence on renal dialysis (2) Acute on chronic systolic CHF (congestive heart failure), NYHA class 3 Status: Acute Assessment and Plan: Not on FERNANDO due to renal failure (3) Acute kidney injury superimposed on CKD Status: Acute (4) Cirrhosis Status: Chronic Qualifiers: Hepatic cirrhosis type: unspecified hepatic cirrhosis Ascites presence: without ascites Qualified Code(s): K74.60 - Unspecified cirrhosis of liver (5) Atrial fibrillation Status: Chronic Qualifiers: Atrial fibrillation type: chronic Qualified Code(s): I48.2 - Chronic atrial fibrillation (6) T2DM (type 2 diabetes mellitus) Status: Chronic Qualifiers: Diabetes mellitus exterminator helper insulin use: without exterminator helper use Diabetes mellitus complication status: with kidney complications Diabetes mellitus complication detail: with chronic kidney disease Chronic kidney disease stage: on chronic dialysis Qualified Code(s): E11.22 - Type 2 diabetes mellitus with diabetic chronic kidney disease; N18.6 - End stage renal disease; Z99.2 - Dependence on renal dialysis (7) CAD (coronary artery disease) Status: Chronic Qualifiers: Coronary Disease-Associated Artery/Lesion type: [place] artery [place] vs. transplanted heart: [place] heart Associated angina: without angina Qualified Code(s): I25.10 - Atherosclerotic heart disease of [place] coronary artery without angina pectoris (8) Bright red blood per rectum Status: Resolved Hospital course: Mr. Purcell is a 63 year old male - Time Spent with Patient Total time spent providing and/or coordinating discharge services: 34min Date of admission: 09/06/18 07:54 Primary care physician: Trevor Horowitz MD Consults: 09/05/18 03:51 Consult to Nephrology [CONS] Routine Consulting Provider: Kidney Lee Ann/DARIEL/NAT/JERSON Reason for Consult: cristy on ckd, chf exacerbation Call Completed: No 09/05/18 04:45 Consult to Occupational Therapy [CONS] Routine Comment: Evaluate, develop and implement POC Reason for Consult: weakness Does patient have active BEDREST order?: No Is patient medically & hemodynamically stable?: Yes Patient assessed for mobility or mobilized this visit?: No Consult to Physical Therapy [CONS] Routine Comment: Evaluate, develop and implement POC Reason for Consult: weakness Does patient have active BEDREST order?: No Is patient medically & hemodynamically stable?: Yes Patient assessed for mobility or mobilized this visit?: No 09/05/18 05:19 Consult to Surgery [CONS] Routine Consulting Provider: Acute Care Surgery Reason for Consult: ?gi bleed Call Completed: Yes 09/05/18 13:19 Consult to Gastroenterology [CONS] Routine Consulting Provider: [facility] Reason for Consult: Cirrhosis pt here with hemorrhoidal bleeding. Please assist with further managment. Would this pt benefit from TIPS? Call Completed: No 09/05/18 20:48 Consult to Interventional Radiology [CONS] Routine Consulting Provider: Radiology Interventional Cols Reason for Consult: Please evaluate for placement of a temporary HD catheter on Thursday. Thank you. Call Completed: No 09/06/18 07:45 Consult to Dialysis [CONS] ONCE 09/06/18 08:28 Consult to Interventional Radiology [CONS] Routine Consulting Provider: Radiology Interventional Cols Reason for Consult: Please eval for placement of a Permacath. Time Notified: 08:28 Call Completed: Yes 09/07/18 06:49 Consult to Dialysis [CONS] Stat 09/07/18 09:15 Consult to Kiln Puller [CONS] Routine Reason for SW Consult: new dialysis pt, will need set up with dialysis clinic on discharge 09/07/18 10:09 Consult to Kiln Puller [CONS] Routine Reason for SW Consult: Needs chair time at [facility] under Dr Petit name; transfer from Dr Barrientos 09/08/18 07:45 Consult to Dialysis [CONS] ONCE 09/10/18 06:45 Consult to Dialysis [CONS] ONCE 09/11/18 08:15 Consult to Dialysis [CONS] ONCE - Constitutional Vitals: Temp Pulse Resp BP Pulse Ox 97.5 F L 71 18 121/56 87 09/11/18 12:46 09/11/18 07:06 09/11/18 12:46 09/11/18 12:46 09/11/18 00:57 - Attending Attestation I examined this patient and my medical decision-making was reviewed with the Resident Physician on 09/11/18. I agree with the documented findings, disposition and treatment plan as described except to the extent set forth below. Mr Purcell has been admitted for volume overload and beginning dialysis. He has done well with dialysis and is breathing better. He has been set up for outpatient dialysis. He is afebrile and ready for discharge to SNF. Exam alert COmfortable Mucus membranes dry Heart not tachy No wheeze abd soft Plan D/C to SNF today.
--- NOTE | 2018-09-11 11:49 | Nephrology Progress Note ---
Date of Encounter: 09/11/18 Time of Encounter: 12:00 - Assessment and Plan (1) Acute kidney injury superimposed on CKD Current Visit: Yes Status: Acute Continue abbreviated Hd session today before discharge as pt will remain on [id number] for future HD sessions outpatient Continue renal diet Continue to avoid nephrotoxins if possible (2) Anemia Current Visit: Yes Status: Chronic Qualifiers: Anemia type: due to chronic kidney disease Chronic kidney disease stage: on chronic dialysis Qualified Code(s): N18.6 - End stage renal disease; D63.1 - Anemia in chronic kidney disease; Z99.2 - Dependence on renal dialysis (3) Acute on chronic systolic CHF (congestive heart failure), NYHA class 3 Current Visit: Yes Status: Acute Subjective Principal diagnosis: Renal failure Interval history: Pt seen and examined on HD Objective - Vital Signs Vital signs: Vital Signs Temp Pulse Resp BP Pulse Ox 09/11/18 10:15 97.6 F 20 99/49 09/11/18 07:06 98.4 F 71 16 92/47 09/11/18 04:03 97.6 F 70 106/44 09/11/18 00:57 98.4 F 81 18 103/61 87 09/10/18 21:10 97 09/10/18 19:20 97.7 F 116 18 105/58 09/10/18 16:06 72 107/57 09/10/18 12:33 77 112/76 09/10/18 12:15 15 118/88 09/10/18 11:50 93/74 Intake and Output 09/10/18 09/11/18 09/11/18 23:59 07:59 15:59 Intake Total 50 / 990 180 / 780 600 / 780 Output Total 0 2000 0 / 0 Balance 50 / -1010 180 / 780 600 / 780 Intake: Oral 50 / 490 180 / 180 0 / 180 Intake, Rinseback and Flushes 600 / 600 Output: Urine 0 / 0 0 / 0 Other: Meal Breakfast Percent of Meal Consumed 50% # Voids 0 Weight 126.7 kg Blood Glucose* 174 128 Hemodialysis Net Fluid Removed 0 (mL) Patient Weight 09/11/18 23:59 Weight 126.7 kg - Lab 09/10/18 03:15 09/11/18 04:18 Most recent lab results 09/11/18 04:18 Calcium 8.7 Consult Discharge Plan - Plan Referrals: Trevor Horowitz MD [Primary Care Provider] - (Refferal made, physicans office will call patient to make an appointment. )
--- NOTE | 2018-09-11 12:47 | Physician Discharge Referral ---
ExtendedCare Referral Info Transfer To: [facility] Provider in Charge: Gael Provider in Charge after Transfer: PCP Institutional Level of Care: Skilled - Diagnosis (1) Acute kidney injury superimposed on CKD Priority: Primary Status: Acute (2) Acute on chronic systolic CHF (congestive heart failure), NYHA class 3 Priority: Primary Status: Acute (3) Cirrhosis Priority: Secondary Status: Chronic (4) Atrial fibrillation Priority: Secondary Status: Chronic (5) Anemia Priority: Secondary Status: Chronic (6) T2DM (type 2 diabetes mellitus) Priority: Secondary Status: Chronic (7) CAD (coronary artery disease) Priority: Secondary Status: Chronic (8) Bright red blood per rectum Priority: Secondary Status: Resolved - Transfer Medications Prescriptions: Allopurinol [Zyloprim 100 MG] 100 mg PO DAILY #30 tablet Home Medications: Amiodarone [Cordarone] 200 mg PO DAILY 08/11/18 [History] Ascorbate Calcium [Vitamin C] 500 mg PO DAILY 08/11/18 [History] Cholecalciferol (Vitamin D3) [Children's Vitamin D3] 3,000 unit PO DAILY [History] Cyanocobalamin (Vitamin B-12) [Vitamin B12] 1,000 mcg PO DAILY 08/11/18 [History] Ferrous Sulfate [Iron] 325 mg PO BID 08/11/18 [History] Glimepiride [Amaryl] 1 mg PO DAILY PRN 08/11/18 [History] Isosorbide MONOnitrate (24 HR) [Imdur] 30 mg PO QPM 08/11/18 [History] L.acidoph,Paracasei, B.lactis [Probiotic] 1 cap PO BID 08/11/18 [History] Levothyroxine [Synthroid] 112 mcg PO 0630 08/11/18 [History] Metoprolol Succinate [Toprol Xl] 12.5 mg PO DAILY 08/11/18 [History] Mexiletine [Mexitil] 150 mg PO Q8HR 08/11/18 [History] Multivitamin [Daily Multiple Vitamin] 1 each PO DAILY 08/11/18 [History] Omeprazole [PriLOSEC] 40 mg PO DAILY #30 cap 08/14/18 [Rx] Atorvastatin Calcium [Lipitor] 40 mg PO HS 08/18/18 [History] Spironolactone [Aldactone] 50 mg PO DAILY #30 tablet 09/01/18 [Rx] Lactulose 30 gm PO TID 09/06/18 [History] Allopurinol [Zyloprim 100 MG] 100 mg PO DAILY #30 tablet 09/11/18 [Rx] Gabapentin [Neurontin] 300 mg PO HS capsule 09/11/18 [Rx] Loratadine [Claritin] 10 mg PO DAILY tablet 09/11/18 [Rx] Rifaximin [Xifaxan] 550 mg PO BID tablet 09/11/18 [Rx] Allergies/Adverse Reactions: Allergy/AdvReac Type Severity Reaction Status Date / Time No Known Allergies Allergy Verified 09/05/18 01:46 - Respiratory Orders Oxygen / L per min (Titrate to SPO2 >92) Smoking Cessation: Smoking cessation has been advised. For more information, call the [employer] Tobacco Quit Line at 0-429-OXKJ-NOW. - Ancillary Orders May use pressure relief devices daily prn, May go on BLANQUITA w/family/respon democrat w/meds at nurse discretion PRN - Advance Directives Code Status: Full Code - Mobility Orders Chair, Ambulate - Rehabiliation Orders Rehab Potential: Fair Rehab Orders: ROM Exercises, Evaluation for Physical Therapy, Evaluation for Occupational Therapy - Treatments Skin tear care topically daily PRN per policy - Diet Orders No Added Salt (HUI), No Concentrated Sweets, Cardiac CERTIFICATION: I certify that the transfer of the above named patient to an Extended Care Facility is necessary for the continuing treatment of the diagnosis listed. The above information is true and accurate reflection of patient's current condition. Confidential - Redisclosure prohibited without a patient's written consent.
[2018-09-11 12:50] VITALS: BP 121/56
[2018-09-11] MEDS: Lactulose Oral Soln 20 GM/30 ML UDC PO SCH (13:47)
[2018-09-11] MEDS: Loratadine 10 MG TABLET PO SCH (13:48)
[2018-09-11] MEDS: Metoprolol XL (24 HR) Succ 25 MG TAB.ER.24H PO SCH (13:48)
[2018-09-11] MEDS: *HR* Amiodarone 200 MG TABLET PO SCH (13:49)
== END 2018-09-11 14:05 | DRG 673 ==
LOC: EMEROOARM 01:29 → 2NENU 01:29 → SUATTDRO 04:19 → 2NENU 04:58 → SUATTDRO 09-06 07:54
PROVIDERS: ADMIT Family Medicine; ATTEND Internal Medicine